=== PATIENT | male | born 1955 | race Caucasian/White ===

== ENCOUNTER 2017-07-02 20:27 | Inpatient (IN) | payer BC ==
[~2017-07-02] VITALS: Ht 177.8 cm; Wt 75.5 kg
[~2017-07-02 20:27] MED LIST: OXYC1TAB3 PO; SSDCR50 EXT
[2017-07-02 20:33] VITALS: Ht 177.8 cm; Wt 75.5 kg
[2017-07-02] MEDS ORDERED: SODIUM CHLORIDE 0.9% 1000ML 1,000 ML IV STA (20:40)
--- NOTE | 2017-07-02 20:41 | EMERGENCY ROOM VISIT NOTE ---
History Report prepared by Scribe: Shannen Rosario Under the Supervision of: Dr. Colin Rangel M.D. First contact with patient: 20:32 Chief Complaint: CHEST PAIN Stated Complaint: CHEST PAIN Nursing Triage Summary: patient c/o left sided chest pain that began 1730 described as a pressure. patient denies any cardiac hx . patient was given 324mg aspirin and two nitro sprays en route to hospital . patient states pain improved from 5 to a 1 after nitro. pain is intermittent. History of Present Illness The patient is a 61 year old male who presents to the Emergency Room with complaints of intermittent left sided chest pain that began at 1730 this evening. He reports he was walking to his refrigerator when the pain started. He rates his pain as a 10/10 initially and describes it as feeling like "pressure". Nitro and Aspirin given in the field have provided good relief and he currently rates his pain as a 2/10. The patient admits he experienced similar symptoms a few days ago when he was [place] the [place]. He thought he had pulled a muscle picking up items at the time and did not seek further care. The patient denies any prior cardiac history or history of PE's or DVT's. He denies any recent fevers, chills, cough or cold symptoms, shortness of breath, nausea, vomiting or diarrhea. The patient is a non-smoker but admits to using chewing tobacco. He drinks "3 to 4" beers "every night". 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 Source of History: patient Onset: 0 this evening Position: chest Symptom Intensity: 2/10 to 10/10 Quality: pressure Timing: intermittent Modifying Factors (Relieving): other (Nitro, Aspirin) Associated Symptoms: No fevers, No chills, No cough (cough or cold symptoms) , No SOB, No nausea, No diarrhea Review of Systems See HPI for pertinent positives and negatives. A total of ten systems were reviewed and were otherwise negative. Past Medical & Surgical Medical Problems: (1) Hypertension (2) LBBB (left bundle branch block) Social History Smoking Status: Never Smoker Smokeless Tobacco Use: No Alcohol Use: heavy Drug Use: none Marital Status: Housing Status: lives with family Occupation Status: employed Current/Historical Medications Scheduled Hydrochlorothiazide (Hctz), 25 MG PO DAILY Lisinopril (Zestril), 10 MG PO DAILY Multivitamin (Multivitamin), 1 TAB PO DAILY Allergies Coded Allergies: No Known Allergies (Unverified , NONE, 08/14/09) Physical Exam Vital Signs Date Time Temp Pulse Resp B/P (MAP) Pulse Ox O2 Delivery O2 Flow Rate FiO2 07/02/17 21:46 86 20 139/77 99 Room Air 07/02/17 20:42 82 07/02/17 20:33 36.7 80 22 139/77 95 Room Air 07/02/17 20:33 96 Room Air Physical Exam GENERAL: Awake, alert, well-appearing, in no distress, appears clinically dry. HENT: Normocephalic, atraumatic. Oropharynx unremarkable. Dry mucous membranes. EYES: Normal conjunctiva. Sclera non-icteric. NECK: Supple. No nuchal rigidity. FROM. No JVD. RESPIRATORY: Clear to auscultation. CARDIAC: Regular rate, normal rhythm. Extremities warm and well perfused. Pulses equal. ABDOMEN: Soft, non-distended. No tenderness to palpation. No rebound or guarding. No masses. RECTAL: Deferred. MUSCULOSKELETAL: Chest examination reveals no tenderness. The back is symmetrical on inspection without obvious abnormality. There is no CVA tenderness to palpation. No joint edema. Reports worst chest pain with movement but not with lying supine. LOWER EXTREMITIES: Calves are equal size bilaterally and non-tender. No edema. No discoloration. Equal pulses in the extremities. NEURO: Normal sensorium. No sensory or motor deficits noted. SKIN: No rash or jaundice noted. Medical Decision & Procedures ER Provider Diagnostic Interpretation: Radiology results as stated below per my review and radiologist interpretation: CHEST ONE VIEW PORTABLE CLINICAL HISTORY: sob dyspnea COMPARISON STUDY: No previous studies for comparison. FINDINGS: The bones soft tissues and hemidiaphragms are normal. The cardiomediastinal silhouette is normal. The lungs are clear. The pulmonary vasculature is normal. IMPRESSION: Negative chest. The above report was generated using voice recognition software. It may contain grammatical, syntax or spelling errors. Electronically signed by: Shimon Camilo M.D. 07/02/2017 8:55 PM Laboratory Results 07/02/17 20:02 Red Blood Count 4.43, Mean Corpuscular Volume 91.9, Mean Corpuscular Hemoglobin 32.1, Mean Corpuscular Hemoglobin Concent 34.9, Mean Platelet Volume 9.8, Neutrophils (%) (Auto) 58.3, Lymphocytes (%) (Auto) 29.2, Monocytes (%) (Auto) 8.6, Eosinophils (%) (Auto) 3.0, Basophils (%) (Auto) 0.5, Neutrophils # (Auto) 7.08, Lymphocytes # (Auto) 3.55, Monocytes # (Auto) 1.05, Eosinophils # (Auto) 0.37, Basophils # (Auto) 0.06 Test 07/02/17 20:02 White Blood Count 12.16 K/uL (4.8-10.8) Red Blood Count 4.43 M/uL (4.7-6.1) Hemoglobin 14.2 g/dL (14.0-18.0) Hematocrit 40.7 % (42-52) Mean Corpuscular Volume 91.9 fL (80-100) Mean Corpuscular Hemoglobin 32.1 pg (25-34) Mean Corpuscular Hemoglobin Concent 34.9 g/dl (32-36) Platelet Count 337 K/uL (130-400) Mean Platelet Volume 9.8 fL (7.4-10.4) Neutrophils (%) (Auto) 58.3 % Lymphocytes (%) (Auto) 29.2 % Monocytes (%) (Auto) 8.6 % Eosinophils (%) (Auto) 3.0 % Basophils (%) (Auto) 0.5 % Neutrophils # (Auto) 7.08 K/uL (1.4-6.5) Lymphocytes # (Auto) 3.55 K/uL (1.2-3.4) Monocytes # (Auto) 1.05 K/uL (0.11-0.59) Eosinophils # (Auto) 0.37 K/uL (0-0.5) Basophils # (Auto) 0.06 K/uL (0-0.2) RDW Standard Deviation 42.6 fL (36.4-46.3) RDW Coefficient of Variation 12.6 % (11.5-14.5) Immature Granulocyte % (Auto) 0.4 % Immature Granulocyte # (Auto) 0.05 K/uL (0.00-0.02) D-Dimer 370 ug/L FEU (0-500) Magnesium Level 2.4 mg/dl (1.8-2.4) Pro-B-Type Natriuretic Peptide 103 pg/ml (0-900) Laboratory results reviewed by me Medications Administered Medications (Trade) Dose Ordered Sig/Tram Route Start Time Stop Time Status Last Admin Dose Admin Sodium Chloride 1,000 ml @ 125 mls/hr Q8H STAT IV 07/02/17 20:40 07/03/17 00:36 DC 07/02/17 20:48 125 MLS/HR ECG Indication: chest pain Rate (beats per minute): 80 Rhythm: normal sinus Findings: LBBB, other (no Sgarbossa criteria present) ED Course 2038: The patient was evaluated in room B4. A complete history and physical exam was performed. 2039: NSS 1000 ml @ 125 mls/hr IV. 1: I reevaluated the patient. He is still feeling a twinge of pain, but no acute distress. I asked him again if the pain felt like pressure or tearing. He reinforced his pain feels like pressure and there was no radiation to his back. I discussed my recommendation that he remain in the hospital for further evaluation and management and he verbalized complete understanding and agreement. 5: I discussed the patients case with Dr. Jmaes, [facility] Hospitalist. The patient will be further evaluated. Medical Decision I reviewed the patient's past medical history, medications, and the nursing notes as described above. The differential diagnoses considered include ACS, dissection, PE, pneumonia, bronchitis and costochondritis. Patient is a 61-year-old gentleman with a past medical history of hypertension who presents emergency department with acute onset of chest pain that had been constant since 5 PM prior to arrival per history of present illness. Was given aspirin and nitroglycerin by EMS and arrives to the ED with mild residual symptoms to 10. Pain is worse with movement however now with lying supine. EKG shows a left bundle branch block but there are no other EKGs in the record. No Jeannette's criteria present, no spotick sign or OR depressions suggestive of pericarditis. Chest x-ray unremarkable and troponin negative in the setting of 3 hours of constant symptoms. Patient reports her pain is more like pressure and denies any tearing sensation or radiation to his back. The patient has equal pulses in all extremities and chest x-ray with mediastinum within the normal limits. Thus dissection unlikely. The patient is a well- healed low risk, with normal sinus rhythm and sats 98% with D-dimer negative as well making PE unlikely. Patient's episode last week was in the setting of physical activity and resolved on its own. Today the patient reports he was walking around the house when the symptoms occurred. Otherwise there's been no trending pattern of chest pain with exertion evolving into chest pain at rest that would paint a clear picture for unstable angina. However, considering the patient reports pressure and has an EKG with a left bundle branch block of unknown chronicity the patient is a heart score of 5, moderate risk, and thus we 'll admit the patient for further cardiac evaluation including likely provocative testing. The patient was admitted to medicine for further management. I discussed with hospital medicine who felt the patient's story could be consistent with unstable angina and they will begin heparin until further testing can be done. Medication Reconcilliation Current Medication List: was personally reviewed by me Blood Pressure Screening Patient's blood pressure: Elevated blood pressure Blood pressure disposition: Elevated BP felt to be situational Consults Time Called: [id number] Consulting Physician: Dr. James, [facility] Hospitalist Returned Call: [phone] I discussed the patients case with Dr. James, [facility] Hospitalist. The patient will be further evaluated. Impression Primary Impression: Substernal chest pain Scribe Attestation The scribe's documentation has been prepared under my direction and personally reviewed by me in its entirety. I confirm that the note above accurately reflects all work, treatment, procedures, and medical decision making performed by me. Departure Information Dispostion Being Evaluated By Hospitalist Referrals No Doctor, Assigned (PCP) Patient Instructions My [facility]
--- NOTE | 2017-07-02 20:56 | DIAGNOSTIC IMAGING REPORT ---
CHEST ONE VIEW PORTABLE CLINICAL HISTORY: sob dyspnea COMPARISON STUDY: No previous studies for comparison. FINDINGS: The bones soft tissues and hemidiaphragms are normal. The cardiomediastinal silhouette is normal. The lungs are clear. The pulmonary vasculature is normal. IMPRESSION: Negative chest. The above report was generated using voice recognition software. It may contain grammatical, syntax or spelling errors. Electronically signed by: Shimon Camilo M.D. 07/02/2017 8:55 PM Dictated Date/Time: 07/02/2017 8:55 PM
[2017-07-02] MEDS ORDERED: LISI-461 PO (20:58)
[2017-07-02] MEDS ORDERED: HYDR25TA4 PO (20:58)
[2017-07-02 21:04] LABS: BASO % 0.5 %; BASO ABS # 0.06 K/uL (0-0.2); COMPLETE YES; HEMATOCRIT 40.7 % (42-52); IG% 0.4 %; LYMPH % 29.2 %; LYMPH ABS # 3.55 K/uL (1.2-3.4); MEAN CELL VOLUME 91.9 fL (80-100); MEAN CORPUSCULAR HEMOGLOBIN 32.1 pg (25-34); MEAN CORPUSCULAR HGB CONC 34.9 g/dl (32-36); MEAN PLATELET VOLUME 9.8 fL (7.4-10.4); MONO % 8.6 %; NEUT % 58.3 %; PLATELET COUNT 337 K/uL (130-400); RED BLOOD COUNT 4.43 M/uL (4.7-6.1); WHITE BLOOD COUNT 12.16 K/uL (4.8-10.8)
[2017-07-02 21:11] LABS: BUN/CREATININE RATIO 12.5 (10-20); CALCIUM 9.1 mg/dl (8.5-10.1); CREATININE 1.1 mg/dl (0.60-1.40); MAGNESIUM 2.4 mg/dl (1.8-2.4); POTASSIUM 3.5 mmol/L (3.5-5.1)
[2017-07-02] MEDS ORDERED: MULT-506 PO (21:47)
--- NOTE | 2017-07-02 23:08 | History and Physical ---
History & Physical Date & Time of Service: Jul 02, 2017 at 23:08 Chief Complaint: Chest Pain Primary Care Physician: Leia Ovalles PA-C History of Present Illness Source: patient, family Salas is a 61 yo M with no previous cardiac hx, nonsmoker, who presents w/chest pain starting about 4.5 hours ago (5:30 pm on 07/02). He reports he did have twinges of chest pain over the weekend when he was at [place], but those went away on their own and he thought they were muscular. He reports this pain was like chest pressure on the left side of his chest and went down the arm. He denies any numbness or tingling or radiation into the jaw. He was given nitro and aspirin en route and felt better. His pain went from 10/10 to 2/10. It has returned somewhat and is now a 3/10. Past Medical/Surgical History Medical Problems: (1) Hypertension (2) LBBB (left bundle branch block) PSHx: None Family History Mother had a stroke 11 y ago. No other cardiac hx in family. Social History Smoking Status: Never Smoker Smokeless Tobacco Use: No Alcohol Use: socially Drug Use: none Marital Status: Occupational Status: employed Allergies Coded Allergies: No Known Allergies (Unverified , NONE, 08/14/09) Home Medications Scheduled Hydrochlorothiazide (Hctz), 25 MG PO DAILY Lisinopril (Zestril), 10 MG PO DAILY Multivitamin (Multivitamin), 1 TAB PO DAILY Review of Systems See HPI for pertinent positives & negatives. A total of 10 systems reviewed and were otherwise negative. Physical Exam Vital Signs Date Time Temp Pulse Resp B/P (MAP) Pulse Ox O2 Delivery O2 Flow Rate FiO2 07/02/17 21:46 86 20 139/77 99 Room Air 07/02/17 20:42 82 07/02/17 20:33 36.7 80 22 139/77 95 Room Air 07/02/17 20:33 96 Room Air General Appearance: WD/WN, + mild distress Head: normocephalic, atraumatic Eyes: normal inspection, PERRL ENT: hearing grossly normal Neck: supple, no JVD Respiratory/Chest: lungs clear, normal breath sounds, no respiratory distress Cardiovascular: regular rate, rhythm, no murmur, normal peripheral pulses Abdomen/GI: normal bowel sounds, non tender, soft Back: no CVA tenderness, no muscle spasm Extremities/Musculoskelatal: normal inspection, no pedal edema Neurologic/Psych: alert, normal mood/affect Skin: warm/dry, no rash Lymphatic: no adenopathy Diagnostics Laboratory Results Results Past 24 Hours Test 07/02/17 20:02 Range/Units White Blood Count 12.16 4.8-10.8 K/uL Red Blood Count 4.43 4.7-6.1 M/uL Hemoglobin 14.2 14.0-18.0 g/dL Hematocrit 40.7 42-52 % Mean Corpuscular Volume 91.9 80-100 fL Mean Corpuscular Hemoglobin 32.1 25-34 pg Mean Corpuscular Hemoglobin Concent 34.9 32-36 g/dl Platelet Count 337 130-400 K/uL Mean Platelet Volume 9.8 7.4-10.4 fL Neutrophils (%) (Auto) 58.3 % Lymphocytes (%) (Auto) 29.2 % Monocytes (%) (Auto) 8.6 % Eosinophils (%) (Auto) 3.0 % Basophils (%) (Auto) 0.5 % Neutrophils # (Auto) 7.08 1.4-6.5 K/uL Lymphocytes # (Auto) 3.55 1.2-3.4 K/uL Monocytes # (Auto) 1.05 0.11-0.59 K/uL Eosinophils # (Auto) 0.37 0-0.5 K/uL Basophils # (Auto) 0.06 0-0.2 K/uL RDW Standard Deviation 42.6 36.4-46.3 fL RDW Coefficient of Variation 12.6 11.5-14.5 % Immature Granulocyte % (Auto) 0.4 % Immature Granulocyte # (Auto) 0.05 0.00-0.02 K/uL D-Dimer 370 0-500 ug/L FEU Sodium Level 132 136-145 mmol/L Potassium Level 3.5 3.5-5.1 mmol/L Chloride Level 96 98-107 mmol/L Carbon Dioxide Level 27 21-32 mmol/L Anion Gap 9.0 3-11 mmol/L Blood Urea Nitrogen 14 7-18 mg/dl Creatinine 1.10 0.60-1.40 mg/dl Est Creatinine Clear Calc Drug Dose 74.7 ml/min Estimated GFR () 84.7 Estimated GFR (Non- 73.1 BUN/Creatinine Ratio 12.5 10-20 Random Glucose 90 70-99 mg/dl Calcium Level 9.1 8.5-10.1 mg/dl Magnesium Level 2.4 1.8-2.4 mg/dl Troponin I < 0.015 0-0.045 ng/ml Pro-B-Type Natriuretic Peptide 103 0-900 pg/ml Diagnostic Radiology CXR IMPRESSION: Negative chest. EKG LBBB - unclear if this is new or old. NSR. No prior EKG available Impression Assessment and Plan 61 yo M w/L sided chest pain that improved w/nitro - ddx ACS versus PE (risk factor being recent trip to [place]) Chest pain - Trend cardiac enzymes - Heparin drip started - Cardiology consulted - Continue aspirin in AM - EKG in AM - Hold HCTZ, and will replete K+ orally to goal of 4.0 - D-dimer negative, so will hold off on CT of chest for now as this seems to be more likely cardiac in origin Hyponatremia (mild) - Continue to monitor, repeat BMP in AM Screening for risk factors for CAD - Lipid panel - A1c Hypertension - Continue Lisinopril 10mg VTE: Heparin drip CODE STATUS: Full DISPO: Tele Attending Addendum: I have physically seen and examined this patient, have supervised the medical residents activities, and agree with the H&P as noted above with the following exceptions as noted. The patient is awake, well-developed and adequately nourished, alert and oriented 3, normocephalic and atraumatic, lying in bed and in no acute distress. HEENT--PERRL, EOMI, mucous membranes and oropharynx dry. Neck--supple, no JVD or bruits, thyroid normal, trachea midline, no adenopathy. Heart--normal S1 and S2, no extra beats, no murmurs, rubs or gallops. Lungs--clear bilaterally with good air movement, no respiratory distress, no accessory muscle use. Abdomen--normal bowel sounds and soft, nontender and nondistended, no hernias or masses, no organomegaly. Extremities--no cyanosis, clubbing or edema. There are good distal pulses b/l. Dermatologic--normal skin turgor, normal color, warm and dry, no abnormal lymph nodes, no rash. Neurologic--cranial nerves II through XII grossly intact, motor and sensory examination normal. Rheumatologic--normal range of motion, nontender, muscles and joints. Psychiatric--normal affect. Assessment and Plan: 1. Unstable angina--The patient will be admitted to telemetry for serial cardiac enzymes, cardiac rhythm monitoring and a 2-D echocardiogram with Dopplers. The patient's initial symptoms of chest discomfort occurred over the weekend while at [place]. He developed worsening symptoms today, to the point that he felt he needed to come to the emergency department for assessment. He has not had any change in his usual habits related to physical activities or oral intake, other than his recent trip to [place]. His d-dimer test was normal, but would still consider him at risk although it would be lesser, of a pulmonary embolism. Would therefore recommend bilateral lower extremity venous Dopplers and CT angiography of the chest if his symptoms are persistent and cardiac workup is negative. He will be treated in meantime indirectly by the use of IV heparin related cardiac concerns. We'll hold HCTZ 25 mg daily and lisinopril 10 mg by mouth daily. Start metoprolol tartrate 25 mg by mouth twice a day with first dose now. Place on Nitropaste 2-D anterior chest wall every 6 hours. Start heparin drip IV standard dose per protocol without bolus. Consult cardiology. Level of Care Telemetry Advanced Directives Existing Advance Directive: No Existing Living Will: No Existing Power of Environmental Laboratory Technician: No Resuscitation Status FULL RESUSCITATION VTE Prophylaxis VTE Risk Assessment Done? Y/N: Yes Risk Level: Moderate Given or contraindicated: Other Anticoagulation (Heparin IV standard dose, no bolus, per weight based protocol) Social Service Consult None Apply Resident Tracking Resident Involvement: Resident Care Provided Care Provided: Adult Hospital Medicine
[2017-07-02] MEDS ORDERED: POLYETHYLENE (MIRALAX) 17 GM PACK PO PRN (23:15)
[2017-07-02] MEDS ORDERED: MAGNESIUM HYDROXIDE SUSP 30 ML UDC PO PRN (23:15)
[2017-07-02] MEDS ORDERED: NITROGLYCERIN 0.4 MG SL PER TAB CHARGE SL PRN (23:15)
[2017-07-02] MEDS ORDERED: ACETAMINOPHEN 325 MG TAB PO PRN (23:15)
[2017-07-02] MEDS ORDERED: ALUMINUM/MAGNESIUM/SIMETH (MAALOX MAX) 30 ML UDC PO PRN (23:15)
[2017-07-02] MEDS ORDERED: MoRPHine SULFATE 2 MG/ML CARP IV PRN (23:15)
[2017-07-02] MEDS ORDERED: ONDANSETRON INJ 2 MG/ML 2 ML VIAL IV PRN (23:15)
[2017-07-02] MEDS ORDERED: POTASSIUM CHLORIDE 10 MEQ TABCR PO STA (23:36)
[2017-07-03] VITALS (8 sets, daily range): BP systolic 108–138; BP diastolic 64–86; PULSE 66–92; TEMP 36.6–37.1; O2SAT 96–100
[2017-07-03] MEDS ORDERED: METOPROLOL TARTRATE 25 MG TAB PO STA (00:11)
[2017-07-03] MEDS ORDERED: NITROGLYCERIN OINT 2% 1GM PACKET EXT STA (00:39)
[2017-07-03] MEDS ORDERED: HEPARIN 25,000 UNIT/500ML D5W 500 ML IV PRN (01:00)
[2017-07-03 06:04] LABS: BLOOD UREA NITROGEN 11 mg/dl (7-18); BUN/CREATININE RATIO 9.5 (10-20); CALCIUM 8.5 mg/dl (8.5-10.1); CARBON DIOXIDE 28 mmol/L (21-32); CHLORIDE 103 mmol/L (98-107); GLUCOSE 110 mg/dl (70-99); POTASSIUM 4.4 mmol/L (3.5-5.1); SODIUM 137 mmol/L (136-145)
[2017-07-03] MEDS: NITROGLYCERIN OINT 2% 1GM PACKET EXT SCH ×4 (06:14→23:22)
[2017-07-03 06:20] LABS: CHOLESTEROL 134 mg/dl (0-200); CHOLESTEROL/HDL RATIO 2.9; CKMB/CK RATIO 1.2 (0-3.0); HDL CHOLESTEROL 47 mg/dl; LDL CHOLESTEROL CALCULATED 66 mg/dl; TRIGLYCERIDES 105 mg/dl (0-150); VERY LOW DENSITY LIPOPROT CALC 21 mg/dl
[2017-07-03 07:36] LABS: PARTIAL THROMBOPLASTIN RATIO 1.8
[2017-07-03] MEDS: ASPIRIN 81 MG ECTAB PO SCH (08:45)
[2017-07-03] MEDS: METOPROLOL TARTRATE 25 MG TAB PO SCH ×2 (08:45→20:35)
[2017-07-03] MEDS: MULTIVITAMIN TAB PO SCH (08:45)
[2017-07-03] MEDS: POTASSIUM CHLORIDE 20 MEQ TABCR PO SCH ×2 (08:45→20:35)
[2017-07-03] MEDS ORDERED: HYDROCHLOROTHIAZIDE 25 MG TAB PO SCH (09:00)
[2017-07-03] MEDS ORDERED: LISINOPRIL 10 MG TAB PO SCH (09:00)
[2017-07-03] MEDS ORDERED: OPTIRAY 320 IV PRN (10:45)
--- NOTE | 2017-07-03 11:04 | Cardiology Consultation ---
Cardiology Consultation Date of Consultation: Jul 03, 2017. Requesting Physician: Dr. Domingo Reason for Consultation: Chest discomfort Pt evaluation today including: conversation w/ patient, conversation w/ family (his is present at the bedside), physical exam, lab review, review of studies, review of inpatient medication list, conversation w/ attending History of Present Illness This is a very pleasant 61-year-old gentleman who has hypertension but no other known cardiovascular history, he has never had any cardiovascular tests including electrocardiograms. His present history starts on 06/27/2017 [place] thought he pulled a muscle and the discomfort lasted for about 2 hours and resolved. He was not short of breath at the time. [place], and was doing well until 07/02/2017 when he developed a similar discomfort at around 5 in the afternoon. This time it was associated with shortness of breath. He has no orthopnea or PND. He notes no peripheral edema. Shortly thereafter he came into the emergency room, the discomfort has continued although it may wax and wane somewhat. He describes the discomfort as being a pulling sensation in his left precordial area and he can identify the location quite accurately. He does not recall trauma. The discomfort is clearly worse when I had him breathe to listen to his lungs and there is a definite respiratory component. It may be a little bit better when he is standing up or leaning forward. He does note that he has had tick bites but has no symptoms of Lyme disease. He denies lightheadedness, dizziness or palpitations. On presentation to the emergency room electrocardiography demonstrated a left bundle branch block, the duration of which is unknown. Initial enzymes were negative, he had a leukocytosis. Subsequent evaluation shows 2 sets of negative cardiac enzymes, no change in his left bundle branch block pattern. Today he feels about the same as he did on presentation yesterday. Past Medical/Surgical History (1) Hypertension Social History Smoking Status: Never Smoker History of Alcohol Use: Yes (2 beers/day) Review of Systems Constitutional: No fever, No weight loss, No weakness Respiratory: + see HPI, + dyspnea on exertion, No cough, No wheezing, No shortness of breath Cardiac: + see HPI, + chest pain, No orthopnea, No PND, No edema, No palpitations Abdomen: No pain, No nausea, No vomiting, No diarrhea, No GI bleeding Male : No urinary frequency, No nocturia more than once/night, No slowing stream, No sexual dysfunction Neurologic: No paralysis, No weakness, No numbness/tingling, No balance problems Heme: No abnormal bleeding/bruising, No clotting problems Endo: No fatigue Skin: No problem reported All Other Systems: Reviewed and Negative Allergies Coded Allergies: No Known Allergies (Unverified , NONE, 08/14/09) Medications Current Inpatient Medications Medications (Trade) Dose Ordered Sig/Tram Route Start Time Stop Time Status Last Admin Dose Admin Acetaminophen (Tylenol Tab) 650 mg Q4H PRN PO 07/02/17 23:15 08/01/17 23:14 Al Hydrox/Mg Hydrox/Simethicone (Maalox Max Susp) 15 ml Q4H PRN PO 07/02/17 23:15 08/01/17 23:14 Magnesium Hydroxide (Milk Of Magnesia Susp) 30 ml Q12H PRN PO 07/02/17 23:15 08/01/17 23:14 Ondansetron HCl (Zofran Inj) 4 mg Q6H PRN IV 07/02/17 23:15 08/01/17 23:14 Nitroglycerin (Nitrostat Tab) 0.4 mg UD PRN SL 07/02/17 23:15 08/01/17 23:14 Nitroglycerin (Nitroglycerin 2% Oint) 1 inch Q6H EXT 07/03/17 06:00 08/02/17 05:59 07/03/17 06:14 1 INCH Morphine Sulfate (MoRPHine SULFATE INJ) 2 mg Q30M PRN IV 07/02/17 23:15 07/16/17 23:14 Aspirin (Ecotrin Tab) 81 mg QAM PO 07/03/17 09:00 08/02/17 08:59 Polyethylene (Miralax Powder Packet) 17 gm DAILY PRN PO 07/02/17 23:15 08/01/17 23:14 Multivitamins (Multivitamin Tab) 1 tab DAILY PO 07/03/17 09:00 08/02/17 08:59 07/03/17 08:45 1 TAB Potassium Chloride (Klor-Con Tab) 40 meq BID PO 07/03/17 09:00 08/02/17 08:59 07/03/17 08:45 40 MEQ Metoprolol Tartrate (Lopressor Tab) 25 mg BID PO 07/03/17 09:00 08/02/17 08:59 07/03/17 08:45 25 MG Heparin Sodium/ Dextrose 500 ml @ 28 mls/hr [id number] PRN IV 07/03/17 01:00 08/02/17 00:59 07/03/17 01:17 28 MLS/HR Ioversol (Optiray 320) 100 ml UD PRN IV 07/03/17 10:45 07/07/17 10:44 Physical Exam Vital Signs Past 12 Hours Date Time Temp Pulse Resp B/P (MAP) Pulse Ox O2 Delivery O2 Flow Rate FiO2 07/03/17 08:00 Room Air 07/03/17 07:38 37.1 72 18 125/74 (91) 97 07/03/17 06:32 Room Air 07/03/17 04:18 36.8 66 18 108/64 (79) 97 Room Air 07/03/17 03:17 99 Room Air 07/03/17 00:48 36.7 79 20 138/78 (98) 96 Room Air 07/03/17 00:21 Room Air 07/02/17 23:33 75 22 139/77 98 Constitutional: General Apperance: heathly-appearing Level of Distress: NAD Psychiatric: Mental Status: active & alert Head: normocephalic Eyes: EOM: EOMI ENMT: normal ENT inspection, hearing grossly normal Neck: supple, no masses Lungs: Respiratory effort: no dyspnea, good air movement Auscultation: breath sounds normal, no wheezing Cardiovascular: Heart Auscultation: RRR, no murmurs, no rubs, no gallops Peripheral Pulses: Bruits: none appreciated Abdomen: Bowel Sounds: normal Inspection & Palpation: soft, no tenderness, guarding & rebound, no masses Musculoskeletal: normal strength (5/5 throughout) Extremities: no edema Neurologic: Cranial Nerves: grossly intact Sensation: grossly intact Data Laboratory Results: Last 24 Hours Test 07/02/17 20:02 07/03/17 05:20 07/03/17 07:04 07/03/17 10:45 White Blood Count 12.16 K/uL Red Blood Count 4.43 M/uL Hemoglobin 14.2 g/dL Hematocrit 40.7 % Mean Corpuscular Volume 91.9 fL Mean Corpuscular Hemoglobin 32.1 pg Mean Corpuscular Hemoglobin Concent 34.9 g/dl Platelet Count 337 K/uL Mean Platelet Volume 9.8 fL Neutrophils (%) (Auto) 58.3 % Lymphocytes (%) (Auto) 29.2 % Monocytes (%) (Auto) 8.6 % Eosinophils (%) (Auto) 3.0 % Basophils (%) (Auto) 0.5 % Neutrophils # (Auto) 7.08 K/uL Lymphocytes # (Auto) 3.55 K/uL Monocytes # (Auto) 1.05 K/uL Eosinophils # (Auto) 0.37 K/uL Basophils # (Auto) 0.06 K/uL RDW Standard Deviation 42.6 fL RDW Coefficient of Variation 12.6 % Immature Granulocyte % (Auto) 0.4 % Immature Granulocyte # (Auto) 0.05 K/uL D-Dimer 370 ug/L FEU Sodium Level 132 mmol/L 137 mmol/L Potassium Level 3.5 mmol/L 4.4 mmol/L Chloride Level 96 mmol/L 103 mmol/L Carbon Dioxide Level 27 mmol/L 28 mmol/L Anion Gap 9.0 mmol/L 6.0 mmol/L Blood Urea Nitrogen 14 mg/dl 11 mg/dl Creatinine 1.10 mg/dl 1.10 mg/dl Est Creatinine Clear Calc Drug Dose 74.7 ml/min 74.7 ml/min Estimated GFR () 84.7 84.7 Estimated GFR (Non- 73.1 73.1 BUN/Creatinine Ratio 12.5 9.5 Random Glucose 90 mg/dl 110 mg/dl Calcium Level 9.1 mg/dl 8.5 mg/dl Magnesium Level 2.4 mg/dl Troponin I < 0.015 ng/ml < 0.015 ng/ml Pro-B-Type Natriuretic Peptide 103 pg/ml Total Creatine Kinase 145 U/L Creatine Kinase MB 1.8 ng/ml Creatine Kinase MB Ratio 1.2 Triglycerides Level 105 mg/dl Cholesterol Level 134 mg/dl HDL Cholesterol 47 mg/dl LDL Cholesterol, Calculated 66 mg/dl VLDL Cholesterol, Calculated 21 mg/dl Cholesterol/HDL Ratio 2.9 Activated Partial Thromboplast Time 47.1 SECONDS Partial Thromboplastin Ratio 1.8 Imaging: Chest x-ray is unremarkable with a normal size cardiac silhouette and no congestive heart failure EKG: On admission and subsequently sinus rhythm with left bundle branch block Telemetry reviewed: Sinus rhythm, no significant abnormality Assessment & Plan #1. Chest discomfort his chest discomfort is atypical for myocardial ischemia, the duration of his current episode would be unusual without objective evidence of injury with enzyme elevation. Additionally the character is more compatible with chest wall or pericardial pain. I am also concerned that this could be due to pulmonary embolism, he was traveling last week and although he has no leg evidence of DVT I think we should exclude a pulmonary embolism and I will schedule that. I am going to get an ESR as a nonspecific marker of pericarditis (we can't interpret his electrocardiogram for pericarditis). I would like to get an echocardiogram to look for wall motion abnormalities or an effusion. If we do not have a diagnosis after these preliminary studies we need to consider stress testing, but that we'll have to be a nuclear stress test and I would do it using a treadmill. #2. Left bundle-branch block: He has a left bundle branch block of unknown duration. To his knowledge she has not had an electrocardiogram so it could be long-standing. I am concerned that it could represent Lyme disease however and I will send titers. He does not have any symptoms to suggest higher degree AV block and if his echocardiogram is unremarkable and his Lyme disease is negative I don't know of any specific treatment for it. Thank you for allowing me to participate in his care.
[2017-07-03 11:24] LABS: CKMB/CK RATIO 0.9 (0-3.0)
--- NOTE | 2017-07-03 11:34 | DIAGNOSTIC IMAGING REPORT ---
CT ANGIOGRAM OF THE CHEST CLINICAL HISTORY: Substernal chest pain COMPARISON STUDY: Chest x-ray dated 07/02/2017 TECHNIQUE: Following the IV administration of 93 mL of Optiray-320, CT angiogram of the thorax was performed from the thoracic inlet to the lung bases utilizing the pulmonary embolus protocol. Images are reviewed in the axial, sagittal, and coronal planes. IV contrast was administered without complication. MIP imaging was performed. A dose lowering technique was utilized adhering to the principles of ALARA. CT DOSE: 420.26 mGycm FINDINGS: No pathologically enlarged axillary mediastinal or hilar lymph nodes were visualized. There was no evidence of thoracic aortic dilatation. There were no pulmonary artery filling defects to indicate acute pulmonary embolism. There is a small left pleural effusion. There are minor left basilar atelectatic changes. IMPRESSION: 1. No evidence of acute pulmonary embolism 2. Very small left pleural effusion with left basilar atelectasis 3. No evidence of pathologic adenopathy Electronically signed by: Toño Garcia M.D. 07/03/2017 11:33 AM Dictated Date/Time: 07/03/2017 11:28 AM
--- NOTE | 2017-07-03 11:45 | Cardiology Follow-Up ---
Subjective Subjective Date of Service: Jul 03, 2017. Pt evaluation today including: conversation w/ patient, physical exam, chart review, lab review, review of studies Additional Details: Today patient described chest discomfort. He reports marked improvement from yesterday. -Pt described pain as a 2/10, heaviness and pressure. He was able to point to the location, slightly left of the sternum. He said that yesterday the pain was 10/10. -Pt describes pain with inspiration and cough and with change of position. Pt seems to have more pain when leaning forward or backwards. -He denies N/V/D, abdominal pain or recent viral illness. -Pt reports recent travel to the beach by [place]. During vacation experienced similar pain. Both incidences involved activity, but yesterday was not relieved by rest. -In the ED, ECG demonstrated presumably new LBBB, troponin negative x2 and a normal CXR. Problem List Medical Problems: (1) Substernal chest pain Status: Acute Review of Systems Constitutional: No fever, No chills, No weakness Respiratory: + see HPI, + dyspnea on exertion, No cough, No wheezing, No shortness of breath Cardiac: + see HPI, + chest pain, No edema, No palpitations Abdomen: No pain, No nausea, No vomiting, No diarrhea Male : No urinary frequency Neurologic: No weakness, No numbness/tingling Endo: No fatigue Objective Vital Signs Last Vital Signs Documentation Date Time Temp Pulse Resp B/P (MAP) Pulse Ox O2 Delivery O2 Flow Rate FiO2 07/03/17 08:00 Room Air 07/03/17 07:38 37.1 72 18 125/74 (91) 97 Physical Exam: General Appearance: WD/WN, no apparent distress Neck: supple, no adenopathy, thyroid normal, no JVD Respiratory/Chest: chest non-tender, lungs clear, normal breath sounds, no respiratory distress, no accessory muscle use Cardiovascular: regular rate, rhythm, no edema, no gallop, no JVD, no murmur Abdomen: non tender Extremities: no pedal edema, no calf tenderness Neurologic/Psychiatric: alert, normal mood/affect, oriented x 3 Skin: normal color, warm/dry, no rash Assessment and Plan Problems Acute Chest Pain Dyspnea LBBB Plan based on differential: cardiac causes, infectious causes and pulmonary Cardiac Causes 1. Reviewed with patient ECG finding of LBBB. Discussed with him that this conduction abnormality makes assessment of cardiac function via exercise stress testing and exercise ECHO. In the setting of normal troponin and with the positional nature of the pain, its unlikely that the patient's pain is related to ACS. ECHO to be performed today. Will consider nuclear stress test for tomorrow. Infectious Cause 2. LBBB and positional pain lends reason to r/o Lyme Disease and Pericarditis. Ordered, ESR and Lyme antibodies Pulmonary 3. SOB, Ordered CT to r/o PE. Pt's CXR was normal, no infiltrates or opacities noted. Going forward tomorrow: Pending results of test above, will consider Nuclear stress test to evaluate perfusion. RESIDENT NOTE--Education purposes only. Please refer to Veterinary Assistant Consult note, Dr. Rosado
[2017-07-03 12:51] LABS: LYME DISEASE AB IGG NEG (NEG); LYME DISEASE AB IGM NEG (NEG)
[2017-07-03] MEDS ORDERED: PERFLUTREN LIPID MICROSPHERE (DEFINITY) IV ONE (13:45)
--- NOTE | 2017-07-03 13:49 | Family Medicine Progress Note ---
Progress Note Date of Service Jul 03, 2017. Subjective Pt evaluation today including: conversation w/ patient, physical exam, chart review, lab review, conversation w/ senior sustainability consultant Pain: mild chest discomfort Voiding: no voiding problems, no incontinence History reviewed with patient - Had 1 episode of chest pain last week on holidays after doing heavy lifting ; mild tightness in cental chest that resolved after 4 hours - Yesterday was carrying steaks to barbeque yesterday when chest pain came back but more severe. Called EMS as he was concerned for having heart attack - Denies relief with nitro in ambulance but was told by EMS that Nitro "improved my vitals" - Pain currently much better than when he first came in; rates it a 3/10 central pressure pain; no radiation to back, jaw or arms - Prior to past week, no episodes of such chest pain; has HTN but no HLD or DM; fleeting smoker as an adolescent; no family history No acute events overnight Patient is currently NPO; no voiding issues Additional Comments: A 10 point review of systems was negative unless stated above. Medications Current Inpatient Medications Medications (Trade) Dose Ordered Sig/Tram Route Start Time Stop Time Status Last Admin Dose Admin Acetaminophen (Tylenol Tab) 650 mg Q4H PRN PO 07/02/17 23:15 08/01/17 23:14 Al Hydrox/Mg Hydrox/Simethicone (Maalox Max Susp) 15 ml Q4H PRN PO 07/02/17 23:15 08/01/17 23:14 Magnesium Hydroxide (Milk Of Magnesia Susp) 30 ml Q12H PRN PO 07/02/17 23:15 08/01/17 23:14 Ondansetron HCl (Zofran Inj) 4 mg Q6H PRN IV 07/02/17 23:15 08/01/17 23:14 Nitroglycerin (Nitrostat Tab) 0.4 mg UD PRN SL 07/02/17 23:15 08/01/17 23:14 Nitroglycerin (Nitroglycerin 2% Oint) 1 inch Q6H EXT 07/03/17 06:00 08/02/17 05:59 07/03/17 12:12 1 INCH Morphine Sulfate (MoRPHine SULFATE INJ) 2 mg Q30M PRN IV 07/02/17 23:15 07/16/17 23:14 Aspirin (Ecotrin Tab) 81 mg QAM PO 07/03/17 09:00 08/02/17 08:59 Polyethylene (Miralax Powder Packet) 17 gm DAILY PRN PO 07/02/17 23:15 08/01/17 23:14 Multivitamins (Multivitamin Tab) 1 tab DAILY PO 07/03/17 09:00 08/02/17 08:59 07/03/17 08:45 1 TAB Potassium Chloride (Klor-Con Tab) 40 meq BID PO 07/03/17 09:00 08/02/17 08:59 07/03/17 08:45 40 MEQ Metoprolol Tartrate (Lopressor Tab) 25 mg BID PO 07/03/17 09:00 08/02/17 08:59 07/03/17 08:45 25 MG Heparin Sodium/ Dextrose 500 ml @ 28 mls/hr [id number] PRN IV 07/03/17 01:00 08/02/17 00:59 07/03/17 01:17 28 MLS/HR Ioversol (Optiray 320) 100 ml UD PRN IV 07/03/17 10:45 07/07/17 10:44 Objective Vital Signs Date Time Temp Pulse Resp B/P (MAP) Pulse Ox O2 Delivery O2 Flow Rate FiO2 07/03/17 12:00 Room Air 07/03/17 11:45 36.8 68 18 130/81 (97) 100 07/03/17 08:00 Room Air 07/03/17 07:38 37.1 72 18 125/74 (91) 97 07/03/17 06:32 Room Air 07/03/17 04:18 36.8 66 18 108/64 (79) 97 Room Air 07/03/17 03:17 99 Room Air 07/03/17 00:48 36.7 79 20 138/78 (98) 96 Room Air 07/03/17 00:21 Room Air 07/02/17 23:33 75 22 139/77 98 07/02/17 21:46 86 20 139/77 99 Room Air 07/02/17 20:42 82 07/02/17 20:33 36.7 80 22 139/77 95 Room Air 07/02/17 20:33 96 Room Air Physical Exam General Appearance: WD/WN, no apparent distress Eyes: normal inspection, EOMI ENT: hearing grossly normal, pharynx normal Neck: supple, no adenopathy, no JVD Respiratory/Chest: lungs clear, no respiratory distress Cardiovascular: regular rate, rhythm, no gallop, no murmur Abdomen: normal bowel sounds, non tender, soft Extremities: non-tender, no pedal edema Neurologic/Psychiatric: alert, normal mood/affect, oriented x 3 Skin: normal color, warm/dry, no rash Lymphatic: no adenopathy Laboratory Results Last 24 Hours Test 07/02/17 20:02 07/03/17 05:20 07/03/17 07:04 07/03/17 10:45 White Blood Count 12.16 K/uL Red Blood Count 4.43 M/uL Hemoglobin 14.2 g/dL Hematocrit 40.7 % Mean Corpuscular Volume 91.9 fL Mean Corpuscular Hemoglobin 32.1 pg Mean Corpuscular Hemoglobin Concent 34.9 g/dl Platelet Count 337 K/uL Mean Platelet Volume 9.8 fL Neutrophils (%) (Auto) 58.3 % Lymphocytes (%) (Auto) 29.2 % Monocytes (%) (Auto) 8.6 % Eosinophils (%) (Auto) 3.0 % Basophils (%) (Auto) 0.5 % Neutrophils # (Auto) 7.08 K/uL Lymphocytes # (Auto) 3.55 K/uL Monocytes # (Auto) 1.05 K/uL Eosinophils # (Auto) 0.37 K/uL Basophils # (Auto) 0.06 K/uL RDW Standard Deviation 42.6 fL RDW Coefficient of Variation 12.6 % Immature Granulocyte % (Auto) 0.4 % Immature Granulocyte # (Auto) 0.05 K/uL D-Dimer 370 ug/L FEU Sodium Level 132 mmol/L 137 mmol/L Potassium Level 3.5 mmol/L 4.4 mmol/L Chloride Level 96 mmol/L 103 mmol/L Carbon Dioxide Level 27 mmol/L 28 mmol/L Anion Gap 9.0 mmol/L 6.0 mmol/L Blood Urea Nitrogen 14 mg/dl 11 mg/dl Creatinine 1.10 mg/dl 1.10 mg/dl Est Creatinine Clear Calc Drug Dose 74.7 ml/min 74.7 ml/min Estimated GFR () 84.7 84.7 Estimated GFR (Non- 73.1 73.1 BUN/Creatinine Ratio 12.5 9.5 Random Glucose 90 mg/dl 110 mg/dl Calcium Level 9.1 mg/dl 8.5 mg/dl Magnesium Level 2.4 mg/dl Troponin I < 0.015 ng/ml < 0.015 ng/ml < 0.015 ng/ml Pro-B-Type Natriuretic Peptide 103 pg/ml Total Creatine Kinase 145 U/L 129 U/L Creatine Kinase MB 1.8 ng/ml 1.1 ng/ml Creatine Kinase MB Ratio 1.2 0.9 Triglycerides Level 105 mg/dl Cholesterol Level 134 mg/dl HDL Cholesterol 47 mg/dl LDL Cholesterol, Calculated 66 mg/dl VLDL Cholesterol, Calculated 21 mg/dl Cholesterol/HDL Ratio 2.9 Activated Partial Thromboplast Time 47.1 SECONDS Partial Thromboplastin Ratio 1.8 Erythrocyte Sedimentation Rate 9 mm/hr Lyme Disease IgG Antibody NEG Lyme Disease IgM Antibody NEG Assessment and Plan 61 year old male presenting for chest pain rule-out. The patient's age and gender certainly increase risk of underlying CAD, though I would rate his symptoms as atypical chest pain. EKG did show left bundle branch block and given that we have no previous EKGs on records, this is presumed to be a new finding until proven otherwise. Our plan for him is as follows: Chest Pain - Non-cardiac etiologies evaluated CT chest negative for PE CXR negative for acute process including pneumothorax, pneumonia or rib fracture - Cardiac enzymes negative x 3 - EKG with presumed new left bundle branch block - Patient given 324 ASA en route to hospital; currently on Heparin infusion - Seen by cardiology recommendations appreciated Echocardiogram to evaluate for RWMA Lyme titres for evaluation of conduction block: Lyme screen negative If evaluations above negative, plan to proceed with nuclear stress testing - Nitroglycerine for chest pain - EKG in the AM Hypertension - Continue Lisinopril - Continue HCTZ DVT Prophylaxis - On heparin infusion - BEKAH - SCD Code Status - Level I Full Shaista Disposition - Telemetry Resident Physician Supervision Note: I interviewed and examined the patient. Discussed with Dr. Barr and agree with findings and plan as documented in the note. Any exceptions or clarifications are listed here: None Documented By: Milan Thomas chest pain - as above. worse w a deep breath worse w certain movements vitals noted nad breathing unlabored ost/msk - L sided lower ribs (~8-10) very tender decreased ROM stuck in exhalation - balanced ligamentous tension and serratus anterior muscle energy - improved some w ROM - pt tolerated well chest pain- due to risks w/u as above//per cardiology - however, if w/u negative strongly suspect muscular/rib rib somatic dysfunction - OMT as above
--- NOTE | 2017-07-03 14:56 | ECHOCARDIOGRAM REPORT ---
*NOTICE TO RECEIVING LIBERTARIAN AGENCY This information is strictly Confidential and protected under [place] law. [place] law prohibits you from making any further disclosure of this information unless further disclosure is expressly permitted by the written consent of the person to whom it pertains or is authorized by law. A general authorization for the release of medical or other information is not sufficient for this purpose. Hospital accepts no responsibility if the information is made available to any other person, INCLUDING THE PATIENT. Interpretation Summary * Name: ANTONY SAMUEL Study Date: 07/03/2017 12:52 PM BP: 130/81 mmHg * Patient Location: [facility] HR: 68 * : 1955 (M/d/yyyy) Gender: Male Height: 70 in * Age: 61 yrs Ethnicity: CA Weight: 170 lb * Ordering Physician: Marisa Domingo * Referring Physician: GÓMEZ * Performed By: Kimberly Pope RDCS * * Reason For Study: UNSTABLE ANGINA * BSA: 1.9 m2 * -- Conclusions -- * Left ventricular systolic function is normal. * Diastolic dysfunction, Grade II (pseudonormalization pattern). * Right ventricular systolic pressure is normal. Procedure Details * A contrast injection of Definity was performed to improve assessment of LV function. * Contrast was injected into an intravenous site in the left arm. * One vial of Definity ultrasound contrast was diluted in normal saline to a total volume of 10 ml. A total of '2' ml of solution was administered during imaging. * Lot # [id number] of Definity utilized for procedure. * Expiration date SEP 12. * The attending nurse who injected the contrast agent was KIRBY WATKINS RN. Left Ventricle * The left ventricle is normal in size. * There is normal left ventricular wall thickness. * Ejection Fraction = 60-65%. * Left ventricular systolic function is normal. * Diastolic dysfunction, Grade II (pseudonormalization pattern). * The left ventricular wall motion is normal. Right Ventricle * The right ventricle is normal in size and function. Atria * The left atrial size is normal. * Right atrial size is normal. Mitral Valve * The mitral valve anatomy is normal. * Significant mitral regurgitation is absent. Tricuspid Valve * The tricuspid valve is not well visualized, but is grossly normal. * There is trace tricuspid regurgitation. * Right ventricular systolic pressure is normal. Aortic Valve * The aortic valve is normal in structure and function. * No hemodynamically significant valvular aortic stenosis. * There is no significant aortic regurgitation. Great Vessels * The aortic root is normal size. Pericardium/Pleural * There is no pericardial effusion. MMode 2D Measurements and Calculations IVSd 1.1 cm IVSs 1.4 cm LVIDd 4.2 cm LVIDs 2.7 cm LVPWd 0.76 cm LVPWs 0.98 cm IVS/LVPW 1.4 FS 35.0 % EDV(Teich) 78.2 ml ESV(Teich) 27.6 ml EF(Teich) 64.6 % EDV(cubed) 73.6 ml ESV(cubed) 20.2 ml EF(cubed) 72.5 % % IVS thick 26.3 % % LVPW thick 27.5 % LV mass(C)d 122.9 grams LV mass(C)dI 63.1 grams/m\S\2 LV mass(C)s 92.4 grams LV mass(C)sI 47.4 grams/m\S\2 SV(Teich) 50.5 ml SI(Teich) 25.9 ml/m\S\2 SV(cubed) 53.3 ml SI(cubed) 27.4 ml/m\S\2 Ao root diam 2.7 cm Ao root area 5.6 cm\S\2 LA dimension 3.5 cm LA/Ao 1.3 LVAd ap4 31.0 cm\S\2 LVLd ap4 9.1 cm EDV(MOD-sp4) 85.7 ml LVAs ap4 16.8 cm\S\2 LVLs ap4 6.8 cm ESV(MOD-sp4) 34.6 ml EF(MOD-sp4) 59.6 % LVAd ap2 36.0 cm\S\2 LVLd ap2 8.8 cm EDV(MOD-sp2) 121.0 ml LVAs ap2 18.8 cm\S\2 LVLs ap2 7.2 cm ESV(MOD-sp2) 42.1 ml EF(MOD-sp2) 65.2 % SV(MOD-sp4) 51.1 ml SI(MOD-sp4) 26.2 ml/m\S\2 SV(MOD-sp2) 78.9 ml SI(MOD-sp2) 40.5 ml/m\S\2 Doppler Measurements and Calculations MV E max silvano 75.2 cm/sec MV A max silvano 67.9 cm/sec MV E/A 1.1 MV dec time 0.26 sec Ao V2 max 145.2 cm/sec Ao max PG 8.4 mmHg Ao max PG (full) 4.4 mmHg LV V1 max PG 4.0 mmHg LV V1 max 99.9 cm/sec TR max silvano 234.8 cm/sec
[2017-07-03] MEDS: DICLOFENAC SOD 1% GEL 100 GM TUBE EXT SCH ×2 (16:54→20:34)
[2017-07-03 17:57] LABS: CKMB/CK RATIO 0.7 (0-3.0)
--- NOTE | 2017-07-03 18:24 | Medical Student: [facility] ---
Med Student Progress Note Date of Service Jul 03, 2017. Subjective Pt evaluation today including: conversation w/ patient, chart review, lab review, review of studies Voiding: no voiding problems Patient was examined sitting up in bed this morning. Still has feeling of left- sided chest pressure which becomes sharp pain with deep breaths. Pain is rated at 2/10 at baseline up to 9/10 with deep breaths. The pain does not radiate up his neck or down his arm. Denies lightheadedness, dizziness, nausea, palpitations, shortness of breath, abdominal pain, numbness/tingling, calf pain. No other complaints at this time. Review of Systems Constitutional: No fever, No chills, No sweats Eyes: No worsening of vision, No diplopia ENT: No sore throat, No trouble swallowing Respiratory: No cough, No wheezing, No shortness of breath Cardiac: + chest pain, No orthopnea, No edema, No palpitations Abdomen: No pain, No nausea, No vomiting, No diarrhea, No constipation Musculoskeletal: No joint pain, No muscle pain, No calf pain Male : No dysuria, No incontinence Neurologic: No weakness, No numbness/tingling Heme: No abnormal bleeding/bruising, No night sweats Objective Vital Signs Date Time Temp Pulse Resp B/P (MAP) Pulse Ox O2 Delivery O2 Flow Rate FiO2 07/03/17 15:54 36.6 75 18 119/74 (89) 97 Room Air 07/03/17 12:00 Room Air 07/03/17 11:45 36.8 68 18 130/81 (97) 100 07/03/17 08:00 Room Air 07/03/17 07:38 37.1 72 18 125/74 (91) 97 07/03/17 06:32 Room Air 07/03/17 04:18 36.8 66 18 108/64 (79) 97 Room Air 07/03/17 03:17 99 Room Air 07/03/17 00:48 36.7 79 20 138/78 (98) 96 Room Air 07/03/17 00:21 Room Air 07/02/17 23:33 75 22 139/77 98 07/02/17 21:46 86 20 139/77 99 Room Air 07/02/17 20:42 82 07/02/17 20:33 36.7 80 22 139/77 95 Room Air 07/02/17 20:33 96 Room Air Physical Exam General Appearance: WD/WN, + mild distress (sitting up in bed) Eyes: bilateral eyes normal inspection, bilateral eyes PERRL, bilateral eyes EOMI ENT: normal ENT inspection, hearing grossly normal, pharynx normal Neck: supple, no adenopathy, no carotid bruits Respiratory/Chest: lungs clear, normal breath sounds, no respiratory distress, no accessory muscle use, + pertinent finding (sharp pain just below left pectoralis with deep breaths, no tenderness to palpation) Cardiovascular: regular rate, rhythm, no gallop, no murmur Abdomen: normal bowel sounds, non tender, soft Extremities: normal range of motion, non-tender, normal inspection, no pedal edema, no calf tenderness, normal capillary refill Neurologic/Psychiatric: alert, normal mood/affect, oriented x 3 Skin: normal color, warm/dry, no rash Lymphatic: no adenopathy Laboratory Results Last 24 Hours Test 07/02/17 20:02 07/03/17 05:20 07/03/17 07:04 07/03/17 10:45 White Blood Count 12.16 K/uL Red Blood Count 4.43 M/uL Hemoglobin 14.2 g/dL Hematocrit 40.7 % Mean Corpuscular Volume 91.9 fL Mean Corpuscular Hemoglobin 32.1 pg Mean Corpuscular Hemoglobin Concent 34.9 g/dl Platelet Count 337 K/uL Mean Platelet Volume 9.8 fL Neutrophils (%) (Auto) 58.3 % Lymphocytes (%) (Auto) 29.2 % Monocytes (%) (Auto) 8.6 % Eosinophils (%) (Auto) 3.0 % Basophils (%) (Auto) 0.5 % Neutrophils # (Auto) 7.08 K/uL Lymphocytes # (Auto) 3.55 K/uL Monocytes # (Auto) 1.05 K/uL Eosinophils # (Auto) 0.37 K/uL Basophils # (Auto) 0.06 K/uL RDW Standard Deviation 42.6 fL RDW Coefficient of Variation 12.6 % Immature Granulocyte % (Auto) 0.4 % Immature Granulocyte # (Auto) 0.05 K/uL D-Dimer 370 ug/L FEU Sodium Level 132 mmol/L 137 mmol/L Potassium Level 3.5 mmol/L 4.4 mmol/L Chloride Level 96 mmol/L 103 mmol/L Carbon Dioxide Level 27 mmol/L 28 mmol/L Anion Gap 9.0 mmol/L 6.0 mmol/L Blood Urea Nitrogen 14 mg/dl 11 mg/dl Creatinine 1.10 mg/dl 1.10 mg/dl Est Creatinine Clear Calc Drug Dose 74.7 ml/min 74.7 ml/min Estimated GFR () 84.7 84.7 Estimated GFR (Non- 73.1 73.1 BUN/Creatinine Ratio 12.5 9.5 Random Glucose 90 mg/dl 110 mg/dl Calcium Level 9.1 mg/dl 8.5 mg/dl Magnesium Level 2.4 mg/dl Troponin I < 0.015 ng/ml < 0.015 ng/ml < 0.015 ng/ml Pro-B-Type Natriuretic Peptide 103 pg/ml Total Creatine Kinase 145 U/L 129 U/L Creatine Kinase MB 1.8 ng/ml 1.1 ng/ml Creatine Kinase MB Ratio 1.2 0.9 Triglycerides Level 105 mg/dl Cholesterol Level 134 mg/dl HDL Cholesterol 47 mg/dl LDL Cholesterol, Calculated 66 mg/dl VLDL Cholesterol, Calculated 21 mg/dl Cholesterol/HDL Ratio 2.9 Activated Partial Thromboplast Time 47.1 SECONDS Partial Thromboplastin Ratio 1.8 Erythrocyte Sedimentation Rate 9 mm/hr Lyme Disease IgG Antibody NEG Lyme Disease IgM Antibody NEG Test 07/03/17 17:20 Total Creatine Kinase 116 U/L Creatine Kinase MB 0.8 ng/ml Creatine Kinase MB Ratio 0.7 Troponin I < 0.015 ng/ml Assessment and Plan Assessment and Plan: This is a 61yo male with HTN and no previous cardiac history, nonsmoker, who presented to the ED with new chest pain on 07/02/17. He was given nitroglycerin and ASA in the ambulance en route to the ED which did not affect his pain though it was noted by the pecan sheller to have stabilized his vitals. Characterization of his chest pain: described as a "pressure," subjectively unaffected by nitroglycerin, and does not radiate up his neck or down his arm. Thus his chest pain is atypical chest pain, likely noncardiac in nature. The differential also includes costochondritis, GERD, and pulmonary embolus. Calculated STEPHANEI score of 1 point for UA/NSTEMI = 5% 14-day risk of mortality, new or recurrent TX, or severe ischemia requiring revascularization. Plan 1. chest pain/pressure, no previous cardiac history, STEPHANIE score for UA/NSTEMI of 1 point = 5% mortality/recurrent TX/ischemia risk -EKG shows LBBB, not sure if this is new or old -D-dimer negative -CT chest negative for PE -cardiac enzymes negative x2, continue to trend -continue IV heparin -nitroglycerin ointment -AM PTT -AM CBC w/o diff -AM BMP -cardiology consult completed -ASA -metoprolol 2. Hypokalemia, 3.1 on admission, 4.4 after supplementation -stable at this time -HOLD HCTZ 3. CAD screening -lipid panel completed and within normal limits 4. HTN -continue lisinopril 10mg PO daily -consider restarting HCTZ as potassium has stabilized 5. DVT prophylaxis -IV heparin -SCD -TEDs 6. FEN/GI -AHA diet Continued [facility] stay due to: multiple IV medications needed Discharge planning: home
[2017-07-03 23:36] LABS: CKMB/CK RATIO 0.8 (0-3.0)
[2017-07-04 04:32] VITALS: BP 128/77; PULSE 75; TEMP 36.7; O2SAT 93
[2017-07-04 06:02] LABS: HEMATOCRIT 38.7 % (42-52); MEAN CELL VOLUME 94.9 fL (80-100); MEAN CORPUSCULAR HEMOGLOBIN 32.1 pg (25-34); MEAN CORPUSCULAR HGB CONC 33.9 g/dl (32-36); MEAN PLATELET VOLUME 9.9 fL (7.4-10.4); PLATELET COUNT 249 K/uL (130-400); RED BLOOD COUNT 4.08 M/uL (4.7-6.1); WHITE BLOOD COUNT 10.21 K/uL (4.8-10.8)
[2017-07-04 06:13] VITALS: BP 135/83; PULSE 77
[2017-07-04] MEDS: NITROGLYCERIN OINT 2% 1GM PACKET EXT SCH ×2 (06:14→12:00)
[2017-07-04 06:22] LABS: PARTIAL THROMBOPLASTIN RATIO 2.9
[2017-07-04 06:34] LABS: BUN/CREATININE RATIO 10.7 (10-20); CALCIUM 8.5 mg/dl (8.5-10.1); CREATININE 1.1 mg/dl (0.60-1.40)
[2017-07-04 07:14] VITALS: BP 129/82; PULSE 76; TEMP 36.6; O2SAT 97
[2017-07-04] MEDS: POTASSIUM CHLORIDE 20 MEQ TABCR PO SCH (07:20)
[2017-07-04] MEDS: METOPROLOL TARTRATE 25 MG TAB PO SCH (07:20)
[2017-07-04] MEDS: ASPIRIN 81 MG ECTAB PO SCH (07:20)
[2017-07-04] MEDS: MULTIVITAMIN TAB PO SCH (07:20)
[2017-07-04] MEDS: DICLOFENAC SOD 1% GEL 100 GM TUBE EXT SCH (07:20)
[2017-07-04] MEDS ORDERED: REGADENOSON 0.4 MG/5 ML SYR ONE (07:48)
[2017-07-04 11:24] VITALS: BP 132/87; PULSE 56; TEMP 36.9; O2SAT 99
--- NOTE | 2017-07-04 12:06 | Discharge Instructions ---
Discharge Instructions Date of Service Jul 04, 2017. Admission Reason for Admission: Lbbb,Substernal Chest Pain Discharge Discharge Diagnosis / Problem: Musculoskeletal chest pain/left intercostal spasm Discharge Goals Goal(s): Diagnostic testing Activity Recommendations Activity Limitations: resume your previous activity Lifting Limitations: none Exercise/Sports Limitations: as tolerated Shower/Bathe: no limitations Driving or Machine Use: no limitations . Instructions / Follow-Up Instructions / Follow-Up You came to the hospital for chest pain that was concerning you. We did a heart tracing (EKG) that showed changes that may be suggestive of stress on the heart, but because you have no previous EKGs to compare to, it was unclear whether this was a benign finding or suggestive of heart damage. We did blood tests that were fortunately negative, and indicate that the chest pain that you experienced was not related to a heart attack. We consulted our panel raiser operator who evaluated you given the abnormalities on your EKG. To exclude any underlying heart disease, the did a nuclear stress test which was fortunately normal. As such, we feel you can be discharged home back to the care of your PCP and we will arrange for follow-up with the panel raiser operator in the office in 1 month. Because we saw no signs of heart disease, we have not started you on any new medications and we have not made any changes to your current medications. Based on your exam, it was most likely related to muscle spasm between the ribs. This should improve on its own. You can hoa Voltaren gel over the counter or try Tylenol or Ibuprofen over the counter. If your symptoms fail to improve, acutely worsen, please seek medical attention immediately by either calling your primary care provider or going to your nearest emergency department. If you need a new primary care provider, you can call Dr. Vasu Barr ( [facility]) at [phone] Otherwise, please see your primary care provider in 3-5 days to ensure that your symptoms continue to improve. Current Hospital Diet Patient's current hospital diet: AHA Diet (Heart Healthy) Discharge Diet Recommended Diet: AHA Diet (Heart Healthy) Pending Studies Studies pending at discharge: no Laboratory Results Lipid Panel Test 07/03/17 05:20 Range/Units Triglycerides Level 105 0-150 mg/dl Cholesterol Level 134 0-200 mg/dl HDL Cholesterol 47 mg/dl Cholesterol/HDL Ratio 2.9 LDL Cholesterol, Calculated 66 mg/dl Medical Emergencies . Who to Call and When: Medical Emergencies: If at any time you feel your situation is an emergency, please call 911 immediately. . Non-Emergent Contact Non-Emergency issues call your: Primary Care Provider Call Non-Emergent contact if: your pain is concerning you, you have any medication questions . . "Provider Documentation" section prepared by Vasu Barr. . VTE Core Measure Inpt VTE Proph given/why not?: Other Anticoagulation (Heparin IV standard dose , no bolus, per weight based protocol)
[2017-07-04 12:28] VITALS: BP 132/87; PULSE 56; TEMP 36.9; O2SAT 99
[2017-07-04] MEDS ORDERED: DICL1GEL12 EXT (12:33)
--- NOTE | 2017-07-04 13:46 | Discharge Summary ---
Discharge Summary Date of Service Jul 04, 2017. (Vasu Barr MD) Discharge Summary Admission Date: Jul 02, 2017 at 23:08 Discharge Date: Jul 04, 2017 Discharge Disposition: Home Principal Diagnosis: MSK Chest Pain / Cardiac Chest Pain Rule-out Problems/Secondary Diagnoses: HTN Procedures: Interpretation Summary * Name: ANTONY SAMUEL Study Date: 07/03/2017 12:52 PM BP: 130/81 mmHg * Patient Location: [facility] HR: 68 * : 1955 (M/d/yyyy) Gender: Male Height: 70 in * Age: 61 yrs Ethnicity: [place] Weight: 170 lb * Ordering Physician: Marisa Domingo * Referring Physician: GÓMEZ * Performed By: Kimberly Pope RDCS * * Reason For Study: UNSTABLE ANGINA * BSA: 1.9 m2 * -- Conclusions -- * Left ventricular systolic function is normal. * Diastolic dysfunction, Grade II (pseudonormalization pattern). * Right ventricular systolic pressure is normal. Procedure Details * A contrast injection of Definity was performed to improve assessment of LV function. * Contrast was injected into an intravenous site in the left arm. * One vial of Definity ultrasound contrast was diluted in normal saline to a total volume of 10 ml. A total of '2' ml of solution was administered during imaging. * Lot # [id number] of Definity utilized for procedure. * Expiration date 1 SEP 12. * The attending nurse who injected the contrast agent was KIRBY WATKINS RN. Left Ventricle * The left ventricle is normal in size. * There is normal left ventricular wall thickness. * Ejection Fraction = 60-65%. * Left ventricular systolic function is normal. * Diastolic dysfunction, Grade II (pseudonormalization pattern). * The left ventricular wall motion is normal. Consultations: Cardiology (Vasu Barr MD) Medication Reconciliation New Medications: Diclofenac Sodium (Topical) (Voltaren 1% Top Gel) 1 % Gel 1 APPL EXT QID for 7 Days, #1 TUBE Continued Medications: Hydrochlorothiazide (Hctz) 25 Mg Tab 25 MG PO DAILY, TAB Lisinopril (Zestril) 10 Mg Tab 10 MG PO DAILY, TAB Multivitamin (Multivitamin) Tab 1 TAB PO DAILY Discharge Exam A 10 point review of systems was negative unless stated in the hospital course Physical Exam: General Appearance: WD/WN, no apparent distress Eyes: normal inspection, EOMI ENT: normal ENT inspection, hearing grossly normal, pharynx normal Neck: supple, no adenopathy, no JVD Respiratory/Chest: lungs clear, no respiratory distress Cardiovascular: regular rate, rhythm, no gallop, no murmur Abdomen / GI: normal bowel sounds, non tender, soft Extremities: no calf tenderness, no pedal edema Neurologic/Psychiatric: alert, normal mood/affect, oriented x 3 Skin: normal color, warm/dry, no rash Lymphatic: no adenopathy (Vasu Barr MD) Hospital Course 61 year old male presenting for chest pain rule-out. Symptoms started 1 week prior. He had 1 episode at that time of central chest pain after doing heavy lifting during his vacation. The pain subsided. He had recurrence of the pain while holding food at the barbecue 1 week later but the pain had a pressure quality. His hospital course is as follows: Chest Pain 2/2 left intercostal muscle strain - Non-cardiac etiologies evaluated CT chest negative for PE CXR negative for acute process including pneumothorax, pneumonia or rib fracture - EKG with left bundle branch block; because to be new because there are no old EKGs on record - Cardiac enzymes negative x 3 - Patient given 324 ASA en route to hospital; started on heparin infusion - Seen by cardiology recommendations appreciated Echocardiogram to evaluate for RWMA Lyme titres for evaluation of conduction block: Lyme screen negative Nuclear stress testing was normal - Bedside evaluation showed a point of tenderness in the left lower rib intercostal space; palpation was able to be reproduced at bedside OMT techniques applied to bedside Patient discharged with Voltaren gel - Given new LBBB; patient will see Dr. Rosado from cardiology in 1 month Hypertension - Continued Lisinopril - Continued HCTZ DVT Prophylaxis - On heparin infusion - BEKAH - SCD Code Status - Level I Full Shaista Disposition - Telemetry The patients pain had improved at the time of discharged. He was discharged home in stable condition. Total Time Spent: Less than 30 minutes This includes examination of the patient, discharge planning, medication reconciliation, and communication with other providers. (Vasu Barr MD) Resident Physician Supervision Note: I interviewed and examined the patient. Discussed with Dr. Barr and agree with findings and plan as documented in the note. 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 (Vasu Barr MD) Additional Copies To Wai Rosado M.D.; Vasu Barr MD
--- NOTE | 2017-07-06 13:33 | MYOCARDIAL PERFUSION SCAN ---
ONE-DAY NUCLEAR MEDICINE TECHNETIUM-99M CARDIOLITE MYOCARDIAL PERFUSION SCAN CLINICAL HISTORY: The patient was admitted to the hospital with a chest pain syndrome and found to have a left bundle branch block. COMPARISON: None. TECHNIQUE: For the stress portion of the study, 33.0 mCi of Technetium 99 m Cardiolite IV was injected at 09:20 am on 07/04/2017. 30 minutes following the injection, imaging of the heart was performed in multiple projection. For the rest portion of the study, 10.7 mCi of Technetium 99 m Cardiolite was injected IV at 07:40 am. One hour following the injection, imaging of the heart was performed in the same projections. For the stress portion of Technetium 99 m Cardiolite, 33.0 mCi at 9:20 a.m. on 07/04/2017. Thirty minutes 10.7 mCi at 7:40 a.m. estate by as projections. For the stress portion of the study, 0.4 mg of Lexiscan was injected intravenously as per protocol. The patient did not experience chest discomfort nor EKG changes over the baseline abnormality with the infusion. Following the study, patient was hemodynamically stable without complaints. FINDINGS: The short axis, vertical long axis, horizontal long axis images were reviewed in detail. There is a slightly less tracer uptake in the septal wall at both stress and rest, however, this demonstrates normal systolic function. This is likely secondary to the left bundle branch block and does not represent stress-induced myocardial ischemia or prior myocardial infarction. The left ventricle demonstrates mildly reduced systolic performance without wall motion abnormality. The left ventricular ejection fraction is 47%. IMPRESSION: 1. No scintigraphic evidence of prior myocardial infarction or stress-induced myocardial ischemia. 2. No Lexiscan induced chest pain. 3. No Lexiscan induced EKG changes over the baseline abnormality. 4. Mildly reduced left ventricular ejection fraction of 47% without segmental wall motion abnormalities.
== END 2017-07-04 13:00 | disposition home or self-care (01) | DRG 313 ==
LOC: EDBD 20:27 → C.EDB 20:28 → C.MED 23:08 → CANRESERV 23:19 → ENRESERV 23:19
PROVIDERS: ADMIT Hospitalist; ATTEND Family Medicine
DX: R07.89 Other chest pain (principal); E87.1 Hypo-osmolality and hyponatremia; I10 Essential (primary) hypertension; S29.011A Strain of muscle and tendon of front wall of thorax, initial encounter; M99.08 Segmental and somatic dysfunction of rib cage; I44.7 Left bundle-branch block, unspecified; R06.09 Other forms of dyspnea; Z79.899 Other long term (current) drug therapy

== ENCOUNTER 2017-07-29 13:09 | Emergency (ER) | payer BC ==
[~2017-07-29] VITALS: Ht 177.8 cm; Wt 78.1 kg
[~2017-07-29 13:09] MED LIST changes: +DICL1GEL12 EXT; +HYDR25TA4 PO; +LISI-461 PO; +MULT-506 PO; -OXYC1TAB3 PO; -SSDCR50 EXT
[2017-07-29 13:12] VITALS: Ht 177.8 cm; Wt 78.1 kg
[2017-07-29 13:28] VITALS: O2SAT 100
[2017-07-29] MEDS ORDERED: FAMOTIDINE IV INJ 40 MG in DEXTROSE 5% 100ML 100 ML IV STA (13:31)
[2017-07-29] MEDS ORDERED: DiphenhydrAMINE HCL 50 MG/ML VIAL IV STA (13:31)
[2017-07-29] MEDS ORDERED: CLR10 PO (13:33)
--- NOTE | 2017-07-29 13:33 | EMERGENCY ROOM VISIT NOTE ---
History Report prepared by Geovany: Evonne Klein Under the Supervision of: Dr. Taqueria Ivey M.D. First contact with patient: 13:13 Chief Complaint: SWELLING TO EXTREMITY Stated Complaint: SWELLING OF FACE, RASH History of Present Illness The patient is a 61 year old white male with a past medical history of hypertension who presents to the ED with a cc of constant facial swelling beginning this morning. The patient states that yesterday he developed hives and when he woke up this morning he had a significant amount of facial swelling. Positive rash across the entire body and itchiness. Negative nausea, vomiting, abdominal pain, difficulty swallowing, SOB, changes in detergents, creams, and food. He notes that he has no known allergies. The patient reports that he has been taking Lisinopril for a year and started Claritin 1 week ago. He states that he went to [employer] just [employer] and had Benadryl and Solu-Medrol before coming in today. Source of History: patient Onset: this morning Position: other (face) Quality: other (swelling) Timing: constant Associated Symptoms: + rash, No SOB, No nausea, No vomiting, No abdominal pain Note: No changes in detergent, creams, and food. Negative difficulty swallowing. Pt has itchiness. Review of Systems See HPI for pertinent positives and negatives. A total of ten systems were reviewed and were otherwise negative. Past Medical & Surgical Medical Problems: (1) Hypertension (2) LBBB (left bundle branch block) Family History No pertinent family history stated. Social History Smoking Status: Never Smoker Alcohol Use: heavy Drug Use: none Marital Status: Housing Status: lives with family Occupation Status: employed Current/Historical Medications Scheduled Amlodipine Besylate (Norvasc), 5 MG PO QD Hydrochlorothiazide (Hctz), 25 MG PO DAILY Loratadine (Claritin), 10 MG PO DAILY Multivitamin (Multivitamin), 1 TAB PO DAILY Prednisone (Prednisone), 50 MG PO DAILY Allergies Coded Allergies: No Known Allergies (Unverified , NONE, 08/14/09) Physical Exam Vital Signs Date Time Temp Pulse Resp B/P (MAP) Pulse Ox O2 Delivery O2 Flow Rate FiO2 07/29/17 15:26 37.0 97 23 125/86 96 07/29/17 15:14 97 23 125/86 96 07/29/17 14:44 93 24 95 07/29/17 14:39 91 25 95 07/29/17 14:09 92 96 07/29/17 13:39 102 97 07/29/17 13:38 126/91 07/29/17 13:28 100 07/29/17 13:28 100 Room Air 07/29/17 13:25 99 20 126/85 99 Room Air 07/29/17 13:24 98 Room Air 07/29/17 13:22 126/85 07/29/17 13:12 37.0 111 20 142/82 99 Room Air Physical Exam GENERAL: Awake, alert, well-appearing, NAD HENT: Significant upper lip swelling, no surrounding erythema or fluctuance. Poor dentition but no signs of dental abscess, posterior oropharynx clear w/o exudate, swelling, or uvular deviation. EYES: Normal conjunctiva. Sclera non-icteric. NECK: Supple. No nuchal rigidity. FROM. No stridor. RESPIRATORY: CTAB, no rhonchi, wheezing, crackles CARDIAC: RRR, no MRG ABDOMEN: Soft, NTND, BS+ MSK: No chest wall TTP, no LE edema NEURO: GCS 15, CN 2-12 intact, moves all 4s on command SKIN: Multiple blanching erythematous macules over the chest back abdomen and extremities. Medical Decision & Procedures Medications Administered Medications (Trade) Dose Ordered Sig/Tram Route Start Time Stop Time Status Last Admin Dose Admin Diphenhydramine HCl (Benadryl Inj) 25 mg NOW STAT IV 07/29/17 13:31 07/29/17 13:34 DC 07/29/17 13:40 25 MG Famotidine 40 mg/ Dextrose 104 ml @ 200 mls/hr ONE STAT IV 07/29/17 13:31 07/29/17 14:02 DC 07/29/17 13:45 200 MLS/HR ED Course 1313: The patient was evaluated in room C2. A complete history and physical exam was performed. 1432: I reevaluated the patient. He is not having shortness of breath or worsening swelling. 1512: I reevaluated the patient. Discussed results and discharge instructions: He verbalized understanding and agreement. The patient is ready for discharge. Medical Decision The patient is a 61 year old white male with a past medical history of hypertension who presents to the ED with a cc of constant facial swelling beginning this morning. Differential diagnosis includes allergic reaction, medication reaction, hereditary angioedema, abscess, cellulitis. Patient was seen and evaluated at the bedside. Patient did complain of some mild rash but denied any other recent changes exception of Claritin. He denied any changes in detergents, creams,, shampoos, soaps, clothing. Patient denied any recent insect or animal bites. Patient does not have any known allergies to other medicines or foods. Patient denies any shortness of breath, difficulty swallowing, tightness in the chest or throat. Patient does take lisinopril. Patient did receive Benadryl as well as Solu-Medrol at the [facility]. Patient was given some additional Benadryl as well as famotidine. Patient was further evaluated and reexamined. Patient had no wheezing on exam he had no further worsening of his facial swelling. Patient had a clear posterior pharynx and no stridor over the anterior neck. Patient was advised to stop taking lisinopril was started on low-dose amlodipine. Patient was told to return if he had any worsening of symptoms, shortness of breath, throat or chest tightness or difficulty breathing. Patient was given strict follow-up, discharge, return precautions. Patient agreeable with plan of care patient was safely discharged home. Medication Reconcilliation Current Medication List: was personally reviewed by me Blood Pressure Screening Patient's blood pressure: Elevated blood pressure Blood pressure disposition: Elevated BP felt to be situational Impression Primary Impression: Facial swelling Additional Impressions: Angioedema Urticaria Scribe Attestation The scribe's documentation has been prepared under my direction and personally reviewed by me in its entirety. I confirm that the note above accurately reflects all work, treatment, procedures, and medical decision making performed by me. Departure Information Dispostion Home / Self-Care Prescriptions Prednisone (Prednisone) 50 Mg Tab 50 MG PO DAILY for urticaria for 4 Days, #4 TAB Prov: Taqueria Ivey M.D. 07/29/17 Amlodipine Besylate (NORVASC) 5 Mg Tab 5 MG PO QD for HTN for 30 Days, #30 TAB 1 Refill Prov: Taqueria Ivey M.D. 07/29/17 Referrals No Doctor, Assigned (PCP) Patient Instructions ED Angioedema, My [facility] Additional Instructions Please return to the emergency department if you have worsening or recurrent symptoms not amenable to at-home treatment. Please call for a follow-up appointment with her primary care physician. Please take your medications as prescribed. If you have other concerns and/or complaints please feel free to also call your primary care physician's office or return the ED for further evaluation, management, and treatment. Please stop using your lisinopril and begin taking amlodipine. If you have worsening swelling, shortness of breathe, throat/chest tightness, or difficulty breathing/swallowing, please return to the ED. You were found to have an elevated blood pressure today (>120 sytolic or >90 diastolic). Per medicare guidelines, you need to follow up with this blood pressure screening with your Primary Care Physician (PCP). For a new PCP call [phone]. Take 600 mg Ibuprofen every 6 hours for pain with food for no more than 2 consecutive days. You may also take tylenol 1000mg every 6 hours for pain. You may apply ice packs to face to help w/ swelling. You may take benadryl for itching and apply cortisone or benadryl cream to affected itchy areas as needed for no more than 3 consecutive days. You have been examined and treated today on an emergency basis only. This is not a substitute for, or an effort to provide, complete comprehensive medical care. It is impossible to recognize and treat all injuries or illnesses in a single emergency department visit. It is therefore important that you follow up closely with [facility]. Call as soon as possible for an appointment. Thank you for your time and consideration. I look forward to speaking with you again soon. Please don't hesitate to call us if you have any questions. Work Instructions Return To Work: 1 day Problem Qualifiers Additional Impressions: Angioedema Encounter type: initial encounter Qualified Codes: T78.3XXA - Angioneurotic edema, initial encounter
[2017-07-29] MEDS ORDERED: FAMOTIDINE 20MG/102 ML D5W ONE (13:43)
[2017-07-29] MEDS ORDERED: PRED50TA PO (14:53)
[2017-07-29] MEDS ORDERED: AMLO5TAB2 PO (14:53)
[2017-07-29 15:26] VITALS: BP 125/86; PULSE 97; TEMP 37; O2SAT 96
== END 2017-07-29 15:27 | disposition home or self-care (01) ==
LOC: C.EDB 13:11 → C.EDC 15:27
DX: R22.0 Localized swelling, mass and lump, head (principal); T78.3XXA Angioneurotic edema, initial encounter; I10 Essential (primary) hypertension; Z79.899 Other long term (current) drug therapy; Z86.79 Personal history of other diseases of the circulatory system

== ENCOUNTER → 2018-01-06 | Outpatient (CLI) | payer OTHER ==
[~2018-01-06] MED LIST changes: +AMLO5TAB2 PO; +CLR10 PO; -DICL1GEL12 EXT; -LISI-461 PO
--- NOTE | 2018-01-06 11:26 | DIAGNOSTIC IMAGING REPORT ---
L ANKLE MIN 3 VIEWS ROUTINE CLINICAL HISTORY: ANKLE SWELLING pain COMPARISON: None. DISCUSSION: The bones and joint spaces appear intact. There is no evidence of fracture, dislocation or bony disease. There is no evidence for soft tissue swelling. IMPRESSION: Negative study. The above report was generated using voice recognition software. It may contain grammatical, syntax or spelling errors. Electronically signed by: Shimon Camilo M.D. 01/06/2018 11:25 AM Dictated Date/Time: 01/06/2018 11:24 AM
--- NOTE | 2018-01-06 11:27 | DIAGNOSTIC IMAGING REPORT ---
L FOOT MIN 3 VIEWS ROUTINE CLINICAL HISTORY: ANKLE SWELLING pain. Edema. COMPARISON: None. DISCUSSION: Moderate degenerative change first metatarsophalangeal joint. All remaining osseous structures are unremarkable. No evidence for fracture or dislocation. Small heel spur. There is no evidence for soft tissue swelling. IMPRESSION: Moderate degenerative change first metatarsophalangeal joint. Otherwise negative study. The above report was generated using voice recognition software. It may contain grammatical, syntax or spelling errors. Electronically signed by: Shimon Camilo M.D. 01/06/2018 11:26 AM Dictated Date/Time: 01/06/2018 11:25 AM
== END | disposition home or self-care (01) ==
LOC: C.RAD 11:04
PROVIDERS: ATTEND Physician Assistant
DX: M25.473 Effusion, unspecified ankle (principal); M19.072 Primary osteoarthritis, left ankle and foot

== ENCOUNTER 2021-08-16 07:45 | Inpatient (IN) ==
--- NOTE | 2021-08-16 08:20 | Emergency Department Note ---
Impression & Plan Syncope and collapse, CHI (closed head injury), Cervical strain ED Provider Note INFORMANT: Patient ED PROVIDER(S): Caio Mojica MD CHIEF COMPLAINT: Syncope PLAN: Disposition: Admitted Condition: Good Outpatient prescription management: none Referral: None MEDICAL DECISION MAKING: Patient presented after syncopal episode. He suffered multiple facial abrasions and contusions. No lacerations require suturing. He did have complaints of neck pain and tingling in the right arm. He was in a cervical collar. CT imaging of the head and neck did not reveal any acute findings. Chronic degenerative changes noted of the cervical spine. There was narrowing which was concerning given his neurologic symptoms. He did not have any focal weakness on examination. The patient removed his own cervical collar despite being advised not to. He stated his symptoms had resolved. The patient was ordered an MRI and after significant discussion agreed. The patient was given Ativan as he was feeling claustrophobic. He underwent the MRI and it showed a anterior longitudinal ligament strain but not disruption. I discussed this with who recommended an Galata collar and 1 week follow-up. The patient did agree to wear the collar and I did place this on him. The patient's syncope work-up revealed a left bundle branch block on his EKG. This was not significant change from prior. The patient had an unremarkable CBC chemistry panel except for mild Pedro Pablo ptosis. No infectious findings were found on examination. I suspect that the patient's leukocytosis is from the syncopal event. He had a negative troponin and TSH. I discussed his syncopal event with Dr. Braga of cardiology. He felt the patient needs to be monitored and have an EP study performed. Consultation was made with Dr. Owen Deal of the [facility] service. Patient was evaluated in the ER for further management. Triage Nursing notes reviewed and agree them. Vital Signs: reviewed and remarkable for no significant abnormalities Differential diagnosis: Vasovagal event, dehydration, infection, hypoglycemia, electrolyte abn ormalities, cardiac sources, intracerebral event, pulmonary embolism, seizure, toxicologic, neurologic, as well as other pathologies. Diagnostics interpreted by me: ECG: Twelve-lead ECG reveals normal sinus rhythm at 68 bpm. Left bundle branch block. No significant concordant or discordant ST elevation. No PVCs. Cardiac Monitoring: Cardiac monitoring ordered by me: The patient was placed on continuous cardiac monitoring and observed. It revealed a normal sinus rhythm at 73 beats per minute without ectopy or evidence of dysrhythmia. Imaging studies: CT scans and MRIs as above. I refer you to the EMR for further details. HPI: The patient is a 65 year old male who presents to the Emergency Room with complaints of syncope. This started this morning and is resolved. Patient was getting out of his car, felt dizzy, then woke up on the gravel parking lot. The patient also notes the following associated symptoms, headache and multiple abrasions to face and forehead, right arm tingling, neck pain. The patient has taken no medication for relieving factors. Current pain is rated as 1/10. Patient notes this is the second visit over the last month for same type of event. Pt denies fevers, chills, diaphoresis, visual changes, chest pain, barbie athing difficulties, nausea, vomiting, abdominal pain, back pain, melena, hematochezia, urinary symptoms, numbness, weakness, lymphadenopathy, rash, or other complaints. ROS: See above HPI for pertinent positives & negatives. A total of 10 systems reviewed and were otherwise negative. PAST MEDICAL HISTORY:See Below , HTN PAST SURGICAL HISTORY:See Below, FAMILY HISTORY:See Below SOCIAL HISTORY:See Below, HOME MEDICATIONS:See Below ALLERGIES:See Below VITALS:See Below PHYSICAL EXAMINATION: GENERAL: Awake, alert, well-appearing, in no distress HENT: Normocephalic, multiple abrasions and contusions on the forehead and bridge of nose. Oropharynx unremarkable. EYES: Normal conjunctiva. Sclera non-icteric. NECK: Inspection normal. Mild posterior tenderness. Supple. No nuchal rigidity. FROM. No masses. RESPIRATORY: Clear to auscultation. No wheezes. No rales. Normal respiratory effort. CARDIAC: Normal rate. Normal rhythm. No murmurs. No rubs. Extremities warm and well perfused. Pulses equal. No JVD. GI: Soft, non-distended. No tenderness to palpation. No rebound or guarding. No masses. RECTAL: Deferred. MUSCULOSKELETAL: Atraumatic. Chest examination reveals no tenderness. The back is symmetrical on inspection without obvious abnormality. There is no CVA tenderness to palpation. No joint edema. LOWER EXTREMITIES: Calves are equal size bilaterally and non-tender. No edema. No discoloration. NEURO: Normal sensorium. No sensory or motor deficits noted except for subjective tingling in the RUE. SKIN: No rash or jaundice noted. Caio Mojica MD Past Med/Surg History Medical History (Updated 08/16/21 @ 16:00 by Caio Mojica MD) Angioedema Hypertension Syncope and collapse Family History (Updated 08/16/21 @ 15:31 by ROXANA Baldwin) Father Stroke Mother Stroke Other Dyslipidemia Hypertension Social History Smoking Status: Never smoker Tobacco Type: Smokeless Tobacco (Dip or Chew) Second Hand Exposure: No; Do You Dip or Chew Tobacco: Yes; Hx Alcohol Use: No Hx Substance Use: No Preferred Language: Danish Feels Safe at Home: Yes Allergies Allergies Allergy/AdvReac Type Severity Reaction Status Date / Time No Known Allergies Allergy Unknown NONE Unverified 08/16/21 08:44 Home Meds Home Medications Medication Instructions Recorded Confirmed hydrochlorothiazide 25 mg tablet 12.5 mg PO DAILY 07/17/21 08/16/21 metoprolol succinate 100 mg 100 mg PO BID 07/17/21 08/16/21 tablet,extended release 24 hr multivitamin 1 tab PO DAILY 07/17/21 08/16/21 amlodipine 10 mg tablet 10 mg PO HS 08/16/21 08/16/21 loratadine 10 mg tablet (Claritin) 10 mg PO DAILY 08/16/21 08/16/21 Results & Data (ED) Vital Signs Vital Signs - 24 hr 08/16/21 07:50 08/16/21 08:13 08/16/21 08:20 Temperature 36.7 C Temperature Source Oral Pulse Rate 75 72 72 Pulse Rate from SpO2 Sensor 72 Pulse Rhythm Regular Respiratory Rate 20 24 20 Respiratory Effort / Characteristics Non-Labored Spontaneous Respiratory Depth Normal Blood Pressure 166/93 H 153/92 H Blood Pressure Mean 117 112 Blood Pressure Position Sitting Pulse Oximetry 99 98 99 Oxygen Delivery Method Room Air Room Air Sepsis Recent Fever Within 48 Hours No Sepsis New/Unexplained Change in Mental Status N/A Sepsis Action Taken by Nursing No Action Required 08/16/21 08:30 08/16/21 09:10 08/16/21 09:20 Temperature Temperature Source Pulse Rate 62 62 59 L Pulse Rate from SpO2 Sensor 62 61 59 L Pulse Rhythm Respiratory Rate 16 19 14 Respiratory Effort / Characteristics Respiratory Depth Blood Pressure 136/93 Blood Pressure Mean 107 Blood Pressure Position Pulse Oximetry 97 99 98 Oxygen Delivery Method Sepsis Recent Fever Within 48 Hours Sepsis New/Unexplained Change in Mental Status Sepsis Action Taken by Nursing 08/16/21 09:30 08/16/21 10:00 08/16/21 10:30 Temperature Temperature Source Pulse Rate 58 L 56 L 58 L Pulse Rate from SpO2 Sensor 59 L 55 L 59 L Pulse Rhythm Respiratory Rate 14 20 14 Respiratory Effort / Characteristics Respiratory Depth Blood Pressure 143/79 H 135/81 146/92 H Blood Pressure Mean 100 99 110 Blood Pressure Position Pulse Oximetry 99 98 99 Oxygen Delivery Method Sepsis Recent Fever Within 48 Hours Sepsis New/Unexplained Change in Mental Status Sepsis Action Taken by Nursing 08/16/21 11:00 08/16/21 11:30 08/16/21 12:00 Temperature Temperature Source Pulse Rate 58 L 89 74 Pulse Rate from SpO2 Sensor 58 L 86 75 Pulse Rhythm Respiratory Rate 13 16 17 Respiratory Effort / Characteristics Respiratory Depth Blood Pressure 146/88 H 160/88 H 146/87 H Blood Pressure Mean 107 112 106 Blood Pressure Position Pulse Oximetry 99 99 99 Oxygen Delivery Method Sepsis Recent Fever Within 48 Hours Sepsis New/Unexplained Change in Mental Status Sepsis Action Taken by Nursing 08/16/21 12:53 08/16/21 13:00 08/16/21 13:30 Temperature Temperature Source Pulse Rate Pulse Rate from SpO2 Sensor 89 72 77 Pulse Rhythm Respiratory Rate Respiratory Effort / Characteristics Respiratory Depth Blood Pressure 151/101 H 147/100 H Blood Pressure Mean 117 115 Blood Pressure Position Pulse Oximetry 98 99 98 Oxygen Delivery Method Sepsis Recent Fever Within 48 Hours Sepsis New/Unexplained Change in Mental Status Sepsis Action Taken by Nursing 08/16/21 14:00 08/16/21 14:13 08/16/21 14:30 Temperature Temperature Source Pulse Rate 73 70 Pulse Rate from SpO2 Sensor 75 73 72 Pulse Rhythm Respiratory Rate 16 12 Respiratory Effort / Characteristics Respiratory Depth Blood Pressure 157/94 H 147/102 H 156/97 H Blood Pressure Mean 115 117 116 Blood Pressure Position Pulse Oximetry 96 97 99 Oxygen Delivery Method Sepsis Recent Fever Within 48 Hours Sepsis New/Unexplained Change in Mental Status Sepsis Action Taken by Nursing 08/16/21 15:00 Temperature Temperature Source Pulse Rate 73 Pulse Rate from SpO2 Sensor 72 Pulse Rhythm Respiratory Rate 17 Respiratory Effort / Characteristics Respiratory Depth Blood Pressure 157/108 H Blood Pressure Mean 124 Blood Pressure Position Pulse Oximetry 99 Oxygen Delivery Method Sepsis Recent Fever Within 48 Hours Sepsis New/Unexplained Change in Mental Status Sepsis Action Taken by Nursing Laboratory Data Result diagrams: 08/16/21 08:31 08/16/21 08:31 Lab Results 08/16/21 08/16/21 08/16/21 Range/Units 08:31 08:31 08:31 WBC 12.25 H (4.8-10.8) K/uL RBC 4.72 (4.7-6.1) M/uL Hgb 15.1 (14.0-18.0) g/dL Hct 45.4 (42-52) % MCV 96.2 (80-100) fL MCH 32.0 (25-34) pg MCHC 33.3 (32-36) g/dL RDW Std Deviation 43.3 (36.4-46.3) fL RDW Coeff of Maynor 12.4 (11.5-14.5) % Plt Count 316 (130-400) K/uL MPV 10.4 (7.4-10.4) fL Immature Gran % (Auto) 0.2 % Neut % (Auto) 74.0 % Lymph % (Auto) 12.8 % Holmes % (Auto) 9.1 % Eos % (Auto) 3.3 % Baso % (Auto) 0.6 % Neut # (Auto) 9.05 H (1.4-6.5) K/uL Lymph # (Auto) 1.57 (1.2-3.4) K/uL Holmes # (Auto) 1.12 H (0.11-0.59) K/uL Eos # (Auto) 0.41 (0-0.5) K/uL Baso # (Auto) 0.07 (0-0.2) K/uL Immature Gran # (Auto) 0.03 H (0.00-0.02) K/uL PT 9.9 (9.0-12.0) Seconds INR 1.0 (0.9-1.1) APTT 26.2 (21.0-31.0) Seconds PTT Ratio 1.0 D-Dimer 350 (0-500) ug/L FEU Sodium 137 (136-145) mmol/L Potassium 4.0 (3.5-5.1) mmol/L Chloride 102 (98-107) mmol/L Carbon Dioxide 28 (21-32) mmol/L Anion Gap 7.0 (3-11) BUN 16 (7-18) mg/dl Creatinine 1.28 (0.6-1.4) mg/dl Est Cr Clr Drug Dosing 62.9 ml/min Est GFR ( Amer) 68.6 ml/min Est GFR (Non-Af Amer) 59.2 ml/min BUN/Creatinine Ratio 12.6 (10-20) Glucose 105 H (70-99) mg/dl Calcium 9.7 (8.5-10.1) mg/dl Magnesium 2.9 H (1.8-2.4) mg/dl Total Bilirubin 0.3 (0.2-1) mg/dl AST 25 (15-37) U/L ALT 48 (12-78) U/L Alkaline Phosphatase 84 (45-117) U/L Troponin I < 0.015 (0-0.045) ng/ml Total Protein 8.5 H (6.4-8.2) gm/dl Albumin 4.0 (3.4-5.0) gm/dl Globulin 4.5 H (2.5-4.0) gm/dl Albumin/Globulin Ratio 0.9 (0.9-2) TSH 1.930 (0.300-4.500) uIu/ml Urine Color Urine Appearance (Clear) Urine pH (4.5-7.5) Ur Specific [place] (1.000-1.030) Urine Protein (Negative) Urine Glucose (UA) (Negative) Urine Ketones (Negative) Urine Blood (Negative) Urine Nitrite (Negative) Urine Bilirubin (Negative) Urine Urobilinogen (Negative) Ur Leukocyte Esterase (Negative) COVID-19 Eval Order 08/16/21 08/16/21 Range/Units 11:14 14:32 WBC (4.8-10.8) K/uL RBC (4.7-6.1) M/uL Hgb (14.0-18.0) g/dL Hct (42-52) % MCV (80-100) fL MCH (25-34) pg MCHC (32-36) g/dL RDW Std Deviation (36.4-46.3) fL RDW Coeff of Maynor (11.5-14.5) % Plt Count (130-400) K/uL MPV (7.4-10.4) fL Immature Gran % (Auto) % Neut % (Auto) % Lymph % (Auto) % Holmes % (Auto) % Eos % (Auto) % Baso % (Auto) % Neut # (Auto) (1.4-6.5) K/uL Lymph # (Auto) (1.2-3.4) K/uL Holmes # (Auto) (0.11-0.59) K/uL Eos # (Auto) (0-0.5) K/uL Baso # (Auto) (0-0.2) K/uL Immature Gran # (Auto) (0.00-0.02) K/uL PT (9.0-12.0) Seconds INR (0.9-1.1) APTT (21.0-31.0) Seconds PTT Ratio D-Dimer (0-500) ug/L FEU Sodium (136-145) mmol/L Potassium (3.5-5.1) mmol/L Chloride (98-107) mmol/L Carbon Dioxide (21-32) mmol/L Anion Gap (3-11) BUN (7-18) mg/dl Creatinine (0.6-1.4) mg/dl Est Cr Clr Drug Dosing ml/min Est GFR ( Amer) ml/min Est GFR (Non-Af Amer) ml/min BUN/Creatinine Ratio (10-20) Glucose (70-99) mg/dl Calcium (8.5-10.1) mg/dl Magnesium (1.8-2.4) mg/dl Total Bilirubin (0.2-1) mg/dl AST (15-37) U/L ALT (12-78) U/L Alkaline Phosphatase (45-117) U/L Troponin I (0-0.045) ng/ml Total Protein (6.4-8.2) gm/dl Albumin (3.4-5.0) gm/dl Globulin (2.5-4.0) gm/dl Albumin/Globulin Ratio (0.9-2) TSH (0.300-4.500) uIu/ml Urine Color Yellow Urine Appearance Clear (Clear) Urine pH 5.5 (4.5-7.5) Ur Specific [place] 1.007 (1.000-1.030) Urine Protein Negative (Negative) Urine Glucose (UA) Negative (Negative) Urine Ketones Negative (Negative) Urine Blood Negative (Negative) Urine Nitrite Negative (Negative) Urine Bilirubin Negative (Negative) Urine Urobilinogen Negative (Negative) Ur Leukocyte Esterase Negative (Negative) COVID-19 Eval Order Covid19 at [facility] Administered Medications Discontinued Medications Sodium Chloride (Nss) 500 mls @ 999 mls/hr IV .Q31M JULIA Stop: 08/16/21 09:00 Last Infusion: 08/16/21 10:43 Dose: 0 mls/hr Documented by: [id number] Admin: 08/16/21 08:37 Dose: 999 mls/hr Documented by: [id number] Lorazepam (Ativan) 1 mg in 2 mls @ 2 mls/min IV NOW STA Stop: 08/16/21 11:41 Last Admin: 08/16/21 12:03 Dose: 2 mls/min Documented by: [id number] Imaging Data Radiologist's Impression: Cervical Spine CT 08/16/21 08:20 CT OF THE CERVICAL SPINE CLINICAL HISTORY: neck pain, syncope, right arm tingling COMPARISON STUDY: No previous studies for comparison. CT DOSE: 933.90 mGy.cm TECHNIQUE: CT scan of the cervical spine was performed from the skull base to the thoracic inlet. Images are reviewed in the axial, sagittal, and coronal planes. IV contrast was not administered for this examination. A dose lowering technique was utilized adhering to the principles of ALARA. FINDINGS: The visualized portions of the lung apices reveal no evidence of pneumothorax. The prevertebral soft tissues are normal. No fractures or subluxations are visualized. Normal cervical lordosis is preserved. Vertebral body heights are maintained. Multilevel intervertebral disc space narrowing with osteophytes are seen. Few areas of posterior longitudinal ligament ossifications are seen. Extension of ossified articles to the central canal is seen at the C5-C6 level and associated with its narrowing. Also few other areas of central canal stenosis are seen at the C3-C4, C4-C5 levels. Bilateral neural foraminal stenosis is seen at the mid cervical level. IMPRESSION: 1. No acute fracture or traumatic malalignment. 2. Degenerative changes of the spine as detailed above. ACT 112: Negative or not required by law. The above report was generated using voice recognition software. It may contain grammatical, syntax or spelling errors. Electronically signed by: Catalina Shabazz DO 08/16/2021 9:21 AM Chest X-Ray 08/16/21 08:20 XR chest 1V portable CLINICAL HISTORY: syncope COMPARISON STUDY: July 02, 2017 FINDINGS: No pneumothorax. No pleural effusion. No large infiltrates or consolidative lesions are seen. Lung volumes are decreased with crowded lung markings. Cardiomediastinal silhouette is within normal limits in size. No significant pulmonary vascular congestion.. Osseous structures: Degenerative changes of the spine. IMPRESSION: 1. No acute pulmonary process. ACT 112: Negative or not required by law. The above report was generated using voice recognition software. It may contain grammatical, syntax or spelling errors. Electronically signed by: Catalina Shabazz DO 08/16/2021 9:[address] 08/16/21 08:20 CT SCAN OF THE BRAIN WITHOUT IV CONTRAST CLINICAL HISTORY: Syncope. COMPARISON STUDY: No priors. TECHNIQUE: Unenhanced axial CT scan of the brain is performed from the vertex to the skull base. A dose lowering technique was utilized adhering to the principles of ALARA. FINDINGS: Brain parenchyma: There is minimal microangiopathic change. There is no hemorrha ge, mass effect, or evidence of acute territorial ischemia by CT criteria. Romeo- white matter differentiation is preserved. No extra-axial fluid collection is seen. Ventricles, sulci, cisterns: Normal in configuration. Intracranial vasculature: There is atherosclerotic calcification of the cavernous carotid arteries. Calvarium: There is no depressed calvarial fracture. Soft tissues: There is a frontal scalp hematoma. Sinuses and mastoids: There is trace mucosal thickening within the left maxillary antrum, the ethmoid sinuses, and the sphenoid sinuses. The mastoid air cells are well pneumatized. Orbits: The bony orbits are grossly intact. IMPRESSION: 1. There is no hemorrhage, mass effect, or evidence of acute territorial ischemia by CT criteria. 2. Frontal scalp hematoma. ACT 112: Negative or not required by law. Electronically signed by: Mars Santos M.D. 08/16/2021 9:12 AM Cervical Spine MRI 08/16/21 10:44 MR cervical spine wo con HISTORY: 65 years-old Male fall, right arm numbness, spinal stenosis on CT acute neck pain status post fall COMPARISON: CT cervical spine of same day TECHNIQUE: Multiplanar multisequence MRI of the cervical spine was obtained without the use of IV contrast. FINDINGS: Motion degraded exam. Prevertebral edema measures up to 4-5 mm extending from C2-C3 to the C5 level. No definite disruption of the anterior longitudinal ligament identified. The imaged posterior fossa structures are unremarkable. Mild mucosal thickening of the maxillary sinuses. Signal within the brainstem, cervical and imaged thoracic spinal cord appears unremarkable. No acute fracture, subluxation or bone marrow edema identified. C2-C3: Mild intervertebral disc space narrowing and spondylitic spurring with posterior annular disc bulge and mild to moderate facet arthrosis. Mild central canal stenosis, AP dimension of the thecal sac measuring 8 mm. C3-C4: Mild intervertebral disc space narrowing with uncovertebral spurring, circumferential annular disc bulge with mild to moderate facet arthrosis. AP dimension of the thecal sac measures 7 mm. Mild to moderate central canal stenosis. Mild bilateral neural foraminal narrowing. C4-C5: Moderate intervertebral disc space narrowing with uncovertebral spurring and circumferential annular disc bulge with posterior disc osteophyte complex and mild to moderate facet arthrosis. There is moderate central canal stenosis, AP dimension of the thecal sac measuring 5 mm. Severe right with moderate to severe left neural foraminal stenosis. C5-C6: Moderate intervertebral disc space narrowing with uncovertebral spurring and circumferential annular disc bulge with posterior disc osteophyte complex and mild to moderate facet arthrosis. There is moderate central canal stenosis, AP dimension of the thecal sac measuring 6 mm. Moderate right with mild to moderate left neural foraminal narrowing. C6-C7: Mild intervertebral disc space narrowing with uncovertebral spurring and circumferential annular disc bulge with posterior disc osteophyte complex and mild to moderate facet arthrosis. There is mild central canal stenosis with AP dimension of the thecal sac measuring approximately 8 mm. Moderate left with mild to moderate right neural foraminal narrowing. C7-T1: Small posterior annular disc bulge with mild to moderate facet arthrosis. Small right paracentral disc protrusion. No central canal or neural foraminal narrowing. IMPRESSION: 1. Motion degraded exam. 2. Mild prevertebral edema extends from C2-C5, likely on a posttraumatic basis. This may reflect a mild ligamentous injury. No disruption of the anterior longitudinal ligament identified. 3. Multilevel discogenic degeneration and facet arthrosis as detailed above results in multilevel central canal stenosis which is moderate at C4-C5 and C5- C6. 4. Multilevel neural foraminal narrowing as above, severe on the right and moderate to severe on the left at C4-C5. 5. Normal bone marrow signal without acute fracture or subluxation. ACT 112: Negative or not required by law. The above report was generated using voice recognition software. It may contain grammatical, syntax or spelling errors. Electronically signed by: Quinn Atkinson M.D. 08/16/2021 1:20 PM Discharge Plan Visit Data Chief Complaint: Head Injury, Minor Stated Complaint: FALL-HIT HEAD,DIZZINESS(OFTEN)CAUSED THE FALL ED Provider: Caio Mojica Discharge Problem: Syncope and collapse, CHI (closed head injury), Cervical strain Forms Stand Alone Forms: [facility] [employer] Prescriptions Prescriptions: No Action metoprolol succinate 100 mg tablet extended release 24 hr 100 mg PO BID RF: 0 hydrochlorothiazide 25 mg tablet 12.5 mg PO DAILY RF: 0 multivitamin Tablet 1 tab PO DAILY RF: 0 amlodipine 10 mg Tablet 10 mg PO HS RF: 0 loratadine [Claritin] 10 mg Tablet 10 mg PO DAILY RF: 0 Referrals Referrals: PCP,NO [Physician] -
[2021-08-16] MEDS ORDERED: SODIUM CHLORIDE 0.9% 500 ML IV SCH (08:30)
[2021-08-16 08:56] LABS: Basophils # (auto) 0.07 K/uL (0-0.2); Basophils % (auto) 0.6 %; Eosinophils # (auto) 0.41 K/uL (0-0.5); Eosinophils % (auto) 3.3 %; Hematocrit (blood only) 45.4 % (42-52); Hemoglobin 15.1 g/dL (14.0-18.0); Immature Granulocytes # (auto) 0.03 K/uL (0.00-0.02); Immature Granulocytes % (auto) 0.2 %; Lymphocytes # (auto) 1.57 K/uL (1.2-3.4); Lymphocytes % (auto) 12.8 %; Mean Corpuscular Hgb Conc 33.3 g/dL (32-36); Mean Corpuscular Volume 96.2 fL (80-100); Mean Platelet Volume 10.4 fL (7.4-10.4); Monocytes # (auto) 1.12 K/uL (0.11-0.59); Monocytes % (auto) 9.1 %; Neutrophils # (auto) 9.05 K/uL (1.4-6.5); Platelet Count 316 K/uL (130-400); RDW Coefficient of Variation 12.4 % (11.5-14.5); RDW Standard Deviation 43.3 fL (36.4-46.3); Red Blood Count 4.72 M/uL (4.7-6.1); White Blood Count 12.25 K/uL (4.8-10.8)
[2021-08-16 09:11] LABS: Alanine Aminotransferase 48 U/L (12-78); Aspartate Aminotransferase 25 U/L (15-37); BUN Creatinine Ratio 12.6 (10-20); Blood Urea Nitrogen 16 mg/dl (7-18); Calcium 9.7 mg/dl (8.5-10.1); Carbon Dioxide 28 mmol/L (21-32); Chloride 102 mmol/L (98-107); Creatinine Clr Calc Pharmacy 62.9 ml/min; Est GFR (African American) 68.6 ml/min; Est GFR (Non-African American) 59.2 ml/min; Glucose 105 mg/dl (70-99); Magnesium 2.9 mg/dl (1.8-2.4); Sodium 137 mmol/L (136-145)
--- NOTE | 2021-08-16 09:13 | XRay Report ---
XR chest 1V portable CLINICAL HISTORY: syncope COMPARISON STUDY: July 02, 2017 FINDINGS: No pneumothorax. No pleural effusion. No large infiltrates or consolidative lesions are seen. Lung volumes are decreased with crowded lung markings. Cardiomediastinal silhouette is within normal limits in size. No significant pulmonary vascular congestion.. Osseous structures: Degenerative changes of the spine. IMPRESSION: 1. No acute pulmonary process. ACT 112: Negative or not required by law. The above report was generated using voice recognition software. It may contain grammatical, syntax o r spelling errors. Electronically signed by: Catalina Shabazz DO 08/16/2021 9:11 AM
--- NOTE | 2021-08-16 09:14 | CT Scan Report ---
CT SCAN OF THE BRAIN WITHOUT IV CONTRAST CLINICAL HISTORY: Syncope. COMPARISON STUDY: No priors. TECHNIQUE: Unenhanced axial CT scan of the brain is performed from the vertex to the skull base. A do se lowering technique was utilized adhering to the principles of ALARA. FINDINGS: Brain parenchyma: There is minimal microangiopathic change. There is no hemorrhage, mass effect, or e vidence of acute territorial ischemia by CT criteria. Romeo-white matter differentiation is preserved. No extra-axial fluid collection is seen. Ventricles, sulci, cisterns: Normal in configuration. Intracranial vasculature: There is atherosclerotic calcification of the cavernous carotid arteries. Calvarium: There is no depressed calvarial fracture. Soft tissues: There is a frontal scalp hematoma. Sinuses and mastoids: There is trace mucosal thickening within the left maxillary antrum, the ethmoid sinuses, and the sphenoid sinuses. The mastoid air cells are well pneumatized. Orbits: The bony orbits are grossly intact. IMPRESSION: 1. There is no hemorrhage, mass effect, or evidence of acute territorial ischemia by CT criteria. 2. Frontal scalp hematoma. ACT 112: Negative or not required by law. Electronically signed by: Mars Santos M.D. 08/16/2021 9:12 AM
[2021-08-16 09:22] LABS: Albumin Globulin Ratio 0.9 (0.9-2); Alkaline Phosphatase 84 U/L (45-117); Bilirubin,Total 0.3 mg/dl (0.2-1); Globulin 4.5 gm/dl (2.5-4.0); Total Protein 8.5 gm/dl (6.4-8.2); Troponin I < 0.015 ng/ml (0-0.045)
--- NOTE | 2021-08-16 09:23 | CT Scan Report ---
CT OF THE CERVICAL SPINE CLINICAL HISTORY: neck pain, syncope, right arm tingling COMPARISON STUDY: No previous studies for comparison. CT DOSE: 933.90 mGy.cm TECHNIQUE: CT scan of the cervical spine was performed from the skull base to the thoracic inlet. Aliyah ges are reviewed in the axial, sagittal, and coronal planes. IV contrast was not administered for thi s examination. A dose lowering technique was utilized adhering to the principles of ALARA. FINDINGS: The visualized portions of the lung apices reveal no evidence of pneumothorax. The prevertebral soft tissues are normal. No fractures or subluxations are visualized. Normal cervical lordosis is preserved. Vertebral body heights are maintained. Multilevel intervertebr al disc space narrowing with osteophytes are seen. Few areas of posterior longitudinal ligament ossif ications are seen. Extension of ossified articles to the central canal is seen at the C5-C6 level and associated with it s narrowing. Also few other areas of central canal stenosis are seen at the C3-C4, C4-C5 levels. Bila teral neural foraminal stenosis is seen at the mid cervical level. IMPRESSION: 1. No acute fracture or traumatic malalignment. 2. Degenerative changes of the spine as detailed above. ACT 112: Negative or not required by law. The above report was generated using voice recognition software. It may contain grammatical, syntax o r spelling errors. Electronically signed by: Catalina Shabazz DO 08/16/2021 9:21 AM
[2021-08-16 09:50] LABS: D Dimer 350 ug/L FEU (0-500); Partial Thromboplastin Time 26.2 Seconds (21.0-31.0); Prothrombin Time 9.9 Seconds (9.0-12.0)
[2021-08-16] MEDS ORDERED: LORazepam 1 MG/2 ML VIAL IV STA (11:40)
[2021-08-16 11:59] LABS: Appearance Urine Clear (Clear); Bilirubin Urine Negative (Negative); Blood Urine Negative (Negative); Color Urine Yellow; Glucose Urine UA Negative (Negative); Ketones Urine Negative (Negative); Leukocyte Esterase Urine Negative (Negative); Nitrite Urine Negative (Negative); Protein Urine Negative (Negative); Specific Gravity Urine 1.007 (1.000-1.030); Urobilinogen Urine Negative (Negative); pH Urine 5.5 (4.5-7.5)
--- NOTE | 2021-08-16 13:22 | Magnetic Resonance Report ---
MR cervical spine wo con HISTORY: 65 years-old Male fall, right arm numbness, spinal stenosis on CT acute neck pain status po st fall COMPARISON: CT cervical spine of same day TECHNIQUE: Multiplanar multisequence MRI of the cervical spine was obtained without the use of IV con trast. FINDINGS: Motion degraded exam. Prevertebral edema measures up to 4-5 mm extending from C2-C3 to the C5 level. No definite disruption of the anterior longitudinal ligament identified. The imaged posterior fossa s tructures are unremarkable. Mild mucosal thickening of the maxillary sinuses. Signal within the brain stem, cervical and imaged thoracic spinal cord appears unremarkable. No acute fracture, subluxation o r bone marrow edema identified. C2-C3: Mild intervertebral disc space narrowing and spondylitic spurring with posterior annular disc bulge and mild to moderate facet arthrosis. Mild central canal stenosis, AP dimension of the thecal s ac measuring 8 mm. C3-C4: Mild intervertebral disc space narrowing with uncovertebral spurring, circumferential annular disc bulge with mild to moderate facet arthrosis. AP dimension of the thecal sac measures 7 mm. Mild to moderate central canal stenosis. Mild bilateral neural foraminal narrowing. C4-C5: Moderate intervertebral disc space narrowing with uncovertebral spurring and circumferential a nnular disc bulge with posterior disc osteophyte complex and mild to moderate facet arthrosis. There is moderate central canal stenosis, AP dimension of the thecal sac measuring 5 mm. Severe right with moderate to severe left neural foraminal stenosis. C5-C6: Moderate intervertebral disc space narrowing with uncovertebral spurring and circumferential a nnular disc bulge with posterior disc osteophyte complex and mild to moderate facet arthrosis. There is moderate central canal stenosis, AP dimension of the thecal sac measuring 6 mm. Moderate right wit h mild to moderate left neural foraminal narrowing. C6-C7: Mild intervertebral disc space narrowing with uncovertebral spurring and circumferential annul ar disc bulge with posterior disc osteophyte complex and mild to moderate facet arthrosis. There is m ild central canal stenosis with AP dimension of the thecal sac measuring approximately 8 mm. Moderate left with mild to moderate right neural foraminal narrowing. C7-T1: Small posterior annular disc bulge with mild to moderate facet arthrosis. Small right paracent ral disc protrusion. No central canal or neural foraminal narrowing. IMPRESSION: 1. Motion degraded exam. 2. Mild prevertebral edema extends from C2-C5, likely on a posttraumatic basis. This may reflect a mi ld ligamentous injury. No disruption of the anterior longitudinal ligament identified. 3. Multilevel discogenic degeneration and facet arthrosis as detailed above results in multilevel althea tral canal stenosis which is moderate at C4-C5 and C5-C6. 4. Multilevel neural foraminal narrowing as above, severe on the right and moderate to severe on the left at C4-C5. 5. Normal bone marrow signal without acute fracture or subluxation. ACT 112: Negative or not required by law. The above report was generated using voice recognition software. It may contain grammatical, syntax o r spelling errors. Electronically signed by: Quinn Atkinson M.D. 08/16/2021 1:20 PM
--- NOTE | 2021-08-16 13:40 | Communication Note ---
Date of Service: August 16, 2021 Telephone consultation completed for patient at request of Dr Caio Mojica MD, [facility] 65M with syncopal episode today with subsequent neck pain original right upper extremity numbness, now resolved neurologically intact upper and lower extremity as per ED provider CT cervical spine 08/16/21 no evidence of fracture or july interspace widening reported as " FINDINGS: The visualized portions of the lung apices reveal no evidence of pneumothorax. The prevertebral soft tissues are normal. No fractures or subluxations are visualized. Normal cervical lordosis is preserved. Vertebral body heights are maintained. Multilevel intervertebral disc space narrowing with osteophytes are seen. Few areas of posterior longitudinal ligament ossifications are seen. Extension of ossified articles to the central canal is seen at the C5-C6 level and associated with its narrowing. Also few other areas of central canal stenosis are seen at the C3-C4, C4-C5 levels. Bilateral neural foraminal stenosis is seen at the mid cervical level. IMPRESSION: 1. No acute fracture or traumatic malalignment. 2. Degenerative changes of the spine as detailed above. " MRI cervical spine 08/16/21 anterior paravertebral edema no areas of severe interspace STIR signal changes or PLL injuries evident reported as " FINDINGS: Motion degraded exam. Prevertebral edema measures up to 4-5 mm extending from C2-C3 to the C5 level. No definite disruption of the anterior longitudinal ligament identified. The imaged posterior fossa structures are unremarkable. Mild mucosal thickening of the maxillary sinuses. Signal within the brainstem, cervical and imaged thoracic spinal cord appears unremarkable. No acute fracture, subluxation or bone marrow edema identified. C2-C3: Mild intervertebral disc space narrowing and spondylitic spurring with posterior annular disc bulge and mild to moderate facet arthrosis. Mild central canal stenosis, AP dimension of the thecal sac measuring 8 mm. C3-C4: Mild intervertebral disc space narrowing with uncovertebral spurring, circumferential annular disc bulge with mild to moderate facet arthrosis. AP dimension of the thecal sac measures 7 mm. Mild to moderate central canal stenosis. Mild bilateral neural foraminal narrowing. C4-C5: Moderate intervertebral disc space narrowing with uncovertebral spurring and circumferential annular disc bulge with posterior disc osteophyte complex and mild to moderate facet arthrosis. There is moderate central canal stenosis, AP dimension of the thecal sac measuring 5 mm. Severe right with moderate to severe left neural foraminal stenosis. C5-C6: Moderate intervertebral disc space narrowing with uncovertebral spurring and circumferential annular disc bulge with posterior disc osteophyte complex and mild to moderate facet arthrosis. There is moderate central canal stenosis, AP dimension of the thecal sac measuring 6 mm. Moderate right with mild to moderate left neural foraminal narrowing. C6-C7: Mild intervertebral disc space narrowing with uncovertebral spurring and circumferential annular disc bulge with posterior disc osteophyte complex and mild to moderate facet arthrosis. There is mild central canal stenosis with AP dimension of the thecal sac measuring approximately 8 mm. Moderate left with mild to moderate right neural foraminal narrowing. C7-T1: Small posterior annular disc bulge with mild to moderate facet arthrosis. Small right paracentral disc protrusion. No central canal or neural foraminal narrowing. IMPRESSION: 1. Motion degraded exam. 2. Mild prevertebral edema extends from C2-C5, likely on a posttraumatic basis. This may reflect a mild ligamentous injury. No disruption of the anterior longitudinal ligament identified. 3. Multilevel discogenic degeneration and facet arthrosis as detailed above results in multilevel central canal stenosis which is moderate at C4-C5 and C5- C6. 4. Multilevel neural foraminal narrowing as above, severe on the right and moderate to severe on the left at C4-C5. 5. Normal bone marrow signal without acute fracture or subluxation. " Plan: - [place] rigid collar at all times - follow-up in clinic in 1-2 weeks; patient to call my office at [phone] to arrange - return to ER for urgent evaluation if any new neurological symptoms - workup for syncope as per ED/cardiology; communicated risk of neurological injury with any recurrents falls to ED provider Feroz Clemons MD Spine Surgeon [facility]
--- NOTE | 2021-08-16 15:19 | History & Physical Report ---
Date of Service August 16, 2021 Assessment & Plan (1) Syncope and collapse: Plan: Patient with history of 3 syncope episodes. 2 with LOC and collapse. 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 Clemons at ~2 weeks at discharge History of Present Illness Primary Care Provider: ROXANA Lynch 65 YOM with past medical history of: HTN, seasonal allergies. Patient comes into the EMD today for syncopal episode. The patient endorses that he got up this morning ate breakfast took his medications and left for work, he felt well and had no abnormal symptoms or feelings on his way to work, upon getting up out of his car he felt dizzy and "fuzzy" in his head and new an "episode" was coming. He grabbed on this car door and then woke up in the gravel parking lot. In the EMD the patient had MRI cervical spine, head CT CXR and Cervical spine CT scan. His MRI did reveal prevertebral edema from C2-C5 and with possible ligamentous injury the EMD provider did consult Ortho-spine who recommended hard aspen collar at all times, and follow up with him in ~ 2weeks time. The patient originally had some paraesthesias to his bilateral upper arms, which has now dissipated. The patient states he has had 3 of these "episodes"; 1 in April that occurred without eating and camping- which was precluded with him cranking the camper out (He did not lose consciousness at that time), 1 in June, where again he did not eat and stood up from sitting position after driving- fell hit his head on a screw requiring nuvia, and the episode today which resulted in him falling and hitting his face on gravel. The patient states that he just gets a fuzzy dizzy feeling in his head, this is not associated with any flashing lights, vision changes, vertiginousness symptoms, salivating, nausea or vomiting. He has not lost bowel or bladder during any of these episodes. He denies any chest pain or palpitations. He is on 3 agents for blood pressure control. Patient will be admitted for observation on telemetry, ECHO, cardiology consult for further evaluation. Patient COVID test is: Allergies Allergy/AdvReac Type Severity Reaction Status Date / Time No Known Allergies Allergy Unknown NONE Unverified 08/16/21 08:44 Home Medications Medication Instructions Recorded Confirmed Type hydrochlorothiazide 25 mg tablet 12.5 mg PO DAILY 07/17/21 08/16/21 History metoprolol succinate 100 mg 100 mg PO BID 07/17/21 08/16/21 History tablet,extended release 24 hr multivitamin 1 tab PO DAILY 07/17/21 08/16/21 History amlodipine 10 mg tablet 10 mg PO HS 08/16/21 08/16/21 History loratadine 10 mg tablet (Claritin) 10 mg PO DAILY 08/16/21 08/16/21 History Past Med/Surg History Medical History (Updated 08/16/21 @ 16:00 by Caio Mojica MD) Angioedema Hypertension Syncope and collapse Family History (Updated 08/16/21 @ 15:31 by ROXANA Baldwin) Father Stroke Mother Stroke Other Dyslipidemia Hypertension Social History Smoking Status: Never smoker Tobacco Type: Smokeless Tobacco (Dip or Chew) Second Hand Exposure: No; Do You Dip or Chew Tobacco: Yes; Hx Alcohol Use: No Hx Substance Use: No Preferred Language: Tunisian Feels Safe at Home: Yes Review of Systems Review of Systems: REVIEW OF SYSTEMS: Constitutional: No fever, sweats or chills Eyes: No diplopia, no worsening or blurred vision ENT: normal hearing, no trouble swallowing Respiratory: No cough, sputum, dyspnea at rest or on exertion Cardiovascular: No chest pain, tightness or palpitations Abdomen: No pain, nausea, vomiting, diarrhea or constipation Musculoskeletal: (+) neck pain, joint pain, calf pain, swelling Neurologic: No weakness, numbness/tingling, or balance problems Psychiatric: No anxiety or depression Skin: No rash or itch Physical Exam Physical Exam: PHYSICAL EXAM: General: awake, alert, no apparent distress Head: Normocephalic, atraumatic, scar well healed on scalp ENT: PERRL, EOMI, no pharyngeal exudate, mucous membranes moist Neuro: CERVICAL collar on, AAO x 3, speech clear and appropriate, strength intact bilaterally 5/5, sensation intact and equal all extremities and dermatomes, no pronator drift, no numbness tingling, Chest: equal rise and fall of the chest, no accessory muscle use, no heaves or thrills, Clear to auscultation, on room air, Cardiac: Regular rate and rhythm, telemetry reviewed- NSR no ectopy, skin warm dry, cap refill <3 seconds, peripheral pulses +2 no JVD, no murmur, no edema GI: NABS x 4 quadrants, soft, nontender to palpation, no rebound, guarding or tenderness : Spontaneously voiding, no pain, no CVA tenderness, Extremities: Normal inspection, no peripheral edema or erythema, calfs nontender to palpation Psych: Normal mood and affect Skin: superficial scrapes to face, scabbed over Results & Data Results & Data ([facility]) Vital Signs (Past 12 Hours) Vital Signs Temp Pulse Resp BP Pulse Ox 08/16/21 15:00 73 17 157/108 H 99 08/16/21 14:30 70 12 156/97 H 99 08/16/21 14:13 73 16 147/102 H 97 08/16/21 14:00 157/94 H 96 08/16/21 13:30 147/100 H 98 08/16/21 13:00 151/101 H 99 08/16/21 12:53 98 08/16/21 12:00 74 17 146/87 H 99 08/16/21 11:30 89 16 160/88 H 99 08/16/21 11:00 58 L 13 146/88 H 99 08/16/21 10:30 58 L 14 146/92 H 99 08/16/21 10:00 56 L 20 135/81 98 08/16/21 09:30 58 L 14 143/79 H 99 08/16/21 09:20 59 L 14 98 08/16/21 09:10 62 19 99 08/16/21 08:30 62 16 136/93 97 08/16/21 08:20 72 20 99 08/16/21 08:13 72 24 153/92 H 98 08/16/21 07:50 36.7 C 75 20 166/93 H 99 Laboratory Results Abnormal lab results 08/16/21 08/16/21 Range/Units 08:31 08:31 WBC 12.25 H (4.8-10.8) K/uL Neut # (Auto) 9.05 H (1.4-6.5) K/uL Nuckolls # (Auto) 1.12 H (0.11-0.59) K/uL Immature Gran # (Auto) 0.03 H (0.00-0.02) K/uL Glucose 105 H (70-99) mg/dl Magnesium 2.9 H (1.8-2.4) mg/dl Total Protein 8.5 H (6.4-8.2) gm/dl Globulin 4.5 H (2.5-4.0) gm/dl Diagnostic Findings Cervical Spine CT 08/16/21 08:20 CT OF THE CERVICAL SPINE CLINICAL HISTORY: neck pain, syncope, right arm tingling COMPARISON STUDY: No previous studies for comparison. CT DOSE: 933.90 mGy.cm TECHNIQUE: CT scan of the cervical spine was performed from the skull base to the thoracic inlet. Images are reviewed in the axial, sagittal, and coronal planes. IV contrast was not administered for this examination. A dose lowering technique was utilized adhering to the principles of ALARA. FINDINGS: The visualized portions of the lung apices reveal no evidence of pneumothorax. The prevertebral soft tissues are normal. No fractures or subluxations are visualized. Normal cervical lordosis is preserved. Vertebral body heights are maintained. Multilevel intervertebral disc space narrowing with osteophytes are seen. Few areas of posterior longitudinal ligament ossifications are seen. Extension of ossified articles to the central canal is seen at the C5-C6 level and associated with its narrowing. Also few other areas of central canal stenosis are seen at the C3-C4, C4-C5 levels. Bilateral neural foraminal stenosis is seen at the mid cervical level. IMPRESSION: 1. No acute fracture or traumatic malalignment. 2. Degenerative changes of the spine as detailed above. ACT 112: Negative or not required by law. The above report was generated using voice recognition software. It may contain grammatical, syntax or spelling errors. Electronically signed by: Catalina Shabazz DO 08/16/2021 9:21 AM Chest X-Ray 08/16/21 08:20 XR chest 1V portable CLINICAL HISTORY: syncope COMPARISON STUDY: July 02, 2017 FINDINGS: No pneumothorax. No pleural effusion. No large infiltrates or consolidative lesions are seen. Lung volumes are decreased with crowded lung markings. Cardiomediastinal silhouette is within normal limits in size. No significant pulmonary vascular congestion.. Osseous structures: Degenerative changes of the spine. IMPRESSION: 1. No acute pulmonary process. ACT 112: Negative or not required by law. The above report was generated using voice recognition software. It may contain grammatical, syntax or spelling errors. Electronically signed by: Catalina Shabazz DO 08/16/2021 9:[address] 08/16/21 08:20 CT SCAN OF THE BRAIN WITHOUT IV CONTRAST CLINICAL HISTORY: Syncope. COMPARISON STUDY: No priors. TECHNIQUE: Unenhanced axial CT scan of the brain is performed from the vertex to the skull base. A dose lowering technique was utilized adhering to the principles of ALARA. FINDINGS: Brain parenchyma: There is minimal microangiopathic change. There is no hemorrhage, mass effect, or evidence of acute territorial ischemia by CT criteria. Romeo-white matter differentiation is preserved. No extra-axial fluid collection is seen. Ventricles, sulci, cisterns: Normal in configuration. Intracranial vasculature: There is atherosclerotic calcification of the cavernous carotid arteries. Calvarium: There is no depressed calvarial fracture. Soft tissues: There is a frontal scalp hematoma. Sinuses and mastoids: There is trace mucosal thickening within the left maxillary antrum, the ethmoid sinuses, and the sphenoid sinuses. The mastoid air cells are well pneumatized. Orbits: The bony orbits are grossly intact. IMPRESSION: 1. There is no hemorrhage, mass effect, or evidence of acute territorial ischemia by CT criteria. 2. Frontal scalp hematoma. ACT 112: Negative or not required by law. Electronically signed by: Mars Santos M.D. 08/16/2021 9:12 AM Cervical Spine MRI 08/16/21 10:44 MR cervical spine wo con HISTORY: 65 years-old Male fall, right arm numbness, spinal stenosis on CT acute neck pain status post fall COMPARISON: CT cervical spine of same day TECHNIQUE: Multiplanar multisequence MRI of the cervical spine was obtained without the use of IV contrast. FINDINGS: Motion degraded exam. Prevertebral edema measures up to 4-5 mm extending from C2-C3 to the C5 level. No definite disruption of the anterior longitudinal ligament identified. The imaged posterior fossa structures are unremarkable. Mild mucosal thickening of the maxillary sinuses. Signal within the brainstem, cervical and imaged thoracic spinal cord appears unremarkable. No acute fracture, subluxation or bone marrow edema identified. C2-C3: Mild intervertebral disc space narrowing and spondylitic spurring with posterior annular disc bulge and mild to moderate facet arthrosis. Mild central canal stenosis, AP dimension of the thecal sac measuring 8 mm. C3-C4: Mild intervertebral disc space narrowing with uncovertebral spurring, circumferential annular disc bulge with mild to moderate facet arthrosis. AP dimension of the thecal sac measures 7 mm. Mild to moderate central canal stenosis. Mild bilateral neural foraminal narrowing. C4-C5: Moderate intervertebral disc space narrowing with uncovertebral spurring and circumferential annular disc bulge with posterior disc osteophyte complex and mild to moderate facet arthrosis. There is moderate central canal stenosis, AP dimension of the thecal sac measuring 5 mm. Severe right with moderate to severe left neural foraminal stenosis. C5-C6: Moderate intervertebral disc space narrowing with uncovertebral spurring and circumferential annular disc bulge with posterior disc osteophyte complex and mild to moderate facet arthrosis. There is moderate central canal stenosis, AP dimension of the thecal sac measuring 6 mm. Moderate right with mild to moderate left neural foraminal narrowing. C6-C7: Mild intervertebral disc space narrowing with uncovertebral spurring and circumferential annular disc bulge with posterior disc osteophyte complex and mild to moderate facet arthrosis. There is mild central canal stenosis with AP dimension of the thecal sac measuring approximately 8 mm. Moderate left with mild to moderate right neural foraminal narrowing. C7-T1: Small posterior annular disc bulge with mild to moderate facet arthrosis. Small right paracentral disc protrusion. No central canal or neural foraminal narrowing. IMPRESSION: 1. Motion degraded exam. 2. Mild prevertebral edema extends from C2-C5, likely on a posttraumatic basis. This may reflect a mild ligamentous injury. No disruption of the anterior longitudinal ligament identified. 3. Multilevel discogenic degeneration and facet arthrosis as detailed above results in multilevel central canal stenosis which is moderate at C4-C5 and C5- C6. 4. Multilevel neural foraminal narrowing as above, severe on the right and moderate to severe on the left at C4-C5. 5. Normal bone marrow signal without acute fracture or subluxation. ACT 112: Negative or not required by law. The above report was generated using voice recognition software. It may contain grammatical, syntax or spelling errors. Electronically signed by: Quinn Atkinson M.D. 08/16/2021 1:20 PM Medications Administered Home Medications hydrochlorothiazide 25 mg tablet 12.5 mg PO DAILY 07/17/21 [History Confirmed 08/16/21] metoprolol succinate 100 mg tablet,extended release 24 hr 100 mg PO BID 07/17/21 [History Confirmed 08/16/21] multivitamin 1 tab PO DAILY 07/17/21 [History Confirmed 08/16/21] amlodipine 10 mg tablet 10 mg PO HS 08/16/21 [History Confirmed 08/16/21] loratadine 10 mg tablet (Claritin) 10 mg PO DAILY 08/16/21 [History Confirmed 08/16/21] Discontinued Medications Sodium Chloride (Nss) 500 mls @ 999 mls/hr IV .Q31M JULIA Stop: 08/16/21 09:00 Last Infusion: 08/16/21 10:43 Dose: 0 mls/hr Documented by: [id number] Admin: 08/16/21 08:37 Dose: 999 mls/hr Documented by: [id number] Lorazepam (Ativan) 1 mg in 2 mls @ 2 mls/min IV NOW STA Stop: 08/16/21 11:41 Last Admin: 08/16/21 12:03 Dose: 2 mls/min Documented by: [id number] ECG Additional Comments: Normal sinus rhythm Left bundle branch block Abnormal ECG When compared with ECG of 04-JUL-2017 07:11, No significant change was found Code Status & VTE Plan Code Status CODE: FULL VTE: SCDs, Heparin 5000 units sub q q12 VTE Prophylaxis Plan VTE Prophylaxis will be ordered: Yes Supervising Physician Co-Signing Physician Notes Patient was seen and examined independently I discussed the case with Roberto SCHMIDT I reviewed pertinent past medical social family history and also the plan of care and agree with the plan of care. This is a third syncopal event with some injury this patient's had. Patient did sustain significant abrasions to his nose and forehead with this most recent syncopal event. He denies significant warning symptoms but does feel a fuzzy dizzy feeling preceding these things not necessarily described as vertigo. Because of the injury that has been sustained patient be observed for telemetry monitoring and cardiology consultation. Examination other than the abrasions to his head and him wearing a rigid cervical collar is unremarkable. He says his neck does feel better with the cervical collar in place. This patient will need outpatient follow-up with ortho spine Any exceptions will be noted below PG Care Time/CCT Total # of Minutes Spent Total Time Spent with Patient: Total time spent is greater than 50% in coordination of care (as documented) at patient's floor/unit and/or counseling patient: Coding Level of Care Code 07860 Initial Inpt Care Lvl 3 Diagnoses Syncope and collapse R55 Hypertension I10 LBBB (left bundle branch block) I44.7 Cervical strain S16.1XXA
[2021-08-16] MEDS ORDERED: ACETAMINOPHEN 325 MG TAB PO PRN ×2 (15:40→20:04)
--- NOTE | 2021-08-16 16:58 | Electrocardiogram Report ---
Test Reason : Blood Pressure : / mmHG Vent. Rate : 068 BPM Atrial Rate : 068 BPM P-R Int : 154 ms QRS Dur : 124 ms QT Int : 418 ms P-R-T Axes : 059 005 063 degrees QTc Int : 444 ms Normal sinus rhythm Left bundle branch block Abnormal ECG When compared with ECG of 04-JUL-2017 07:11, No significant change was found Confirmed by Deacon Braga ([id number]) on 08/16/2021 4:57:51 PM Referred By: SELF Confirmed By:Deacon Braga
[2021-08-16] MEDS ORDERED: ONDANSETRON INJ 2 MG/ML 2 ML VIAL IV PRN (20:04)
[2021-08-16] MEDS ORDERED: oxyCODONE HCL IR 5 MG TAB (IMMEDIATE RELEASE) PO PRN (20:04)
[2021-08-16] MEDS: amLODIPine BESYLATE 5 MG TAB PO SCH (21:07)
[2021-08-16] MEDS: METOPROLOL SUCC 50MG EXT REL TAB PO SCH (21:07)
[2021-08-16] MEDS: BACITRACIN OINT 15 GM TUBE EXT SCH (21:07)
[2021-08-16] MEDS: HEPARIN SOD 5,000 UNIT/0.5 ML VIAL SQ SCH (21:07)
[2021-08-17 06:05] LABS: Basophils # (auto) 0.03 K/uL (0-0.2); Basophils % (auto) 0.3 %; Eosinophils # (auto) 0.18 K/uL (0-0.5); Eosinophils % (auto) 1.7 %; Hematocrit (blood only) 42.5 % (42-52); Hemoglobin 14.5 g/dL (14.0-18.0); Immature Granulocytes # (auto) 0.02 K/uL (0.00-0.02); Immature Granulocytes % (auto) 0.2 %; Lymphocytes # (auto) 1.62 K/uL (1.2-3.4); Lymphocytes % (auto) 15.4 %; Mean Corpuscular Hemoglobin 32.1 pg (25-34); Mean Corpuscular Hgb Conc 34.1 g/dL (32-36); Mean Platelet Volume 10.5 fL (7.4-10.4); Monocytes # (auto) 1.18 K/uL (0.11-0.59); Monocytes % (auto) 11.2 %; Neutrophils # (auto) 7.51 K/uL (1.4-6.5); Neutrophils % (auto) 71.2 %; Platelet Count 284 K/uL (130-400); RDW Coefficient of Variation 12.6 % (11.5-14.5); RDW Standard Deviation 43.1 fL (36.4-46.3); Red Blood Count 4.52 M/uL (4.7-6.1); White Blood Count 10.54 K/uL (4.8-10.8)
[2021-08-17 06:52] LABS: BUN Creatinine Ratio 11.7 (10-20); Calcium 8.8 mg/dl (8.5-10.1); Creatinine Clr Calc Pharmacy 76.7 ml/min; Est GFR (African American) 87.1 ml/min; Est GFR (Non-African American) 75.2 ml/min; Magnesium 2.4 mg/dl (1.8-2.4); Potassium 3.7 mmol/L (3.5-5.1)
--- NOTE | 2021-08-17 08:23 | Electrocardiogram Report ---
Test Reason : Blood Pressure : / mmHG Vent. Rate : 067 BPM Atrial Rate : 067 BPM P-R Int : 150 ms QRS Dur : 124 ms QT Int : 442 ms P-R-T Axes : 119 167 106 degrees QTc Int : 467 ms Suspect arm lead reversal, interpretation assumes no reversal Normal sinus rhythm Left bundle branch block Abnormal ECG When compared with ECG of 16-AUG-2021 08:17, Arm lead reversal suspected, repeat tracing recommended Confirmed by Deacon Braga ([id number]) on 08/17/2021 8:23:01 AM Referred By: REFERRED SELF Confirmed By:Deacon Braga
[2021-08-17] MEDS: METOPROLOL SUCC 50MG EXT REL TAB PO SCH ×2 (09:15→21:17)
[2021-08-17] MEDS: LORATADINE 10 MG TAB PO SCH (09:15)
[2021-08-17] MEDS: BACITRACIN OINT 15 GM TUBE EXT SCH ×2 (09:15→21:16)
[2021-08-17] MEDS: HEPARIN SOD 5,000 UNIT/0.5 ML VIAL SQ SCH ×2 (09:15→21:17)
--- NOTE | 2021-08-17 17:27 | Cardiology Consultation ---
Date of Consultation August 17, 2021 Assessment & Plan (1) Syncope and collapse: Etiology uncertain, each of the episodes had a short prodrome and occurred after assuming an upright position, suggesting vasovagal or orthostatic etiology. However, he has evidence of conduction system disease on ECG with left bundle branch block and had sufficiently rapid loss of consciousness that 2 of his episodes resulted in traumatic syncope. Overnight telemetry appears benign. Will obtain electrophysiology input tomorrow. Considerations include preemptive pacemaker placement given recurrent traumatic syncope versus implantable loop recorder to monitor for future episodes versus medical management verus allowing permissive hypertension to reduce likelihood of orthostatic syncope. (2) Hypertension: Amlodipine and metoprolol restarted, hydrochlorothiazide held. Depending upon the degree of hypertension exhibited overnight, would consider reducing either/both of these medications doses as well to diminish chance of orthostatic syncope. (3) LBBB (left bundle branch block): Chronic, noted in 2016. Echocardiogram at that time showed normal left ventricular systolic function with evidence of diastolic dysfunction but no significant valvular disease. (4) Cervical strain: Secondary to syncope. (5) Lab test positive for detection of COVID-19 virus: Possible carrier status, no infectious symptoms. Does not seem to be playing a role in his current syncope but may complicate management (? Delay placement of any devices). History of Present Illness Reason for Consultation: Syncope with collapse Requesting Physician: Kirit Painting Attending Physician: Kirit Painting History of Present Illness 65-year-old man with history of hypertension (on amlodipine/HCTZ/metoprolol) who is admitted after presenting with his third episode of syncope in the past 3 months, 2 of which were traumatic. First episode was actually presyncope and occurred in April on a hot day when he had not eaten, he felt very lightheaded upon standing up. Second episode in June, also after not eating, when he stood up abruptly to get out of car after driving, he lost consciousness and sustained head laceration requiring nuvia. Third episode today again occurred when getting out of his car, he noted "fuzzi ness" in his head and lost consciousness in the parking lot. He sustained forehead abrasions and cervical spine ligamentous injury requiring that he wear a hard cervical collar. He noted no chest pain, palpitations, or dyspnea at any time. No focal neurologic symptoms. No bowel or bladder incontinence. Between episodes, he feels fine. At the time of my evaluation this afternoon, he was comfortable and had no complaints. Telemetry monitoring showed only sinus rhythm at rates of 70 to 80 bpm with no significant ectopy or dysrhythmias. No bradycardia or pauses. Allergies Allergy/AdvReac Type Severity Reaction Status Date / Time No Known Allergies Allergy Unknown NONE Unverified 08/16/21 08:44 Home Medications Medication Instructions Recorded Confirmed Type hydrochlorothiazide 25 mg tablet 12.5 mg PO DAILY 07/17/21 08/16/21 History metoprolol succinate 100 mg 100 mg PO BID 07/17/21 08/16/21 History tablet,extended release 24 hr multivitamin 1 tab PO DAILY 07/17/21 08/16/21 History amlodipine 10 mg tablet 10 mg PO HS 08/16/21 08/16/21 History loratadine 10 mg tablet (Claritin) 10 mg PO DAILY 08/16/21 08/16/21 History Patient History Medical History Angioedema Hypertension Syncope and collapse Family History Father Stroke Mother Stroke Other Dyslipidemia Hypertension Social History Smoking Status: Never smoker Tobacco Type: Smokeless Tobacco (Dip or Chew) Second Hand Exposure: No; Hx Alcohol Use: Yes Alcohol type: beer Hx Substance Use: No Preferred Language: Upper Sorbian Communication Ability: Effective Spot Facer Required: No Beliefs That Will Affect Care: None Current Living Situation: Spouse Feels Safe at Home: Yes Assistive Devices: None Physical Exam Physical Exam: Adult white male with stigmata of recent trauma (forehead abrasions, cervical collar) who was in no distress. Afebrile. Normotensive to mildly hypertensive. Pulse 74 bpm and regular. Skin: Forehead abrasions, no generalized lesions. HEENT: unremarkable. Neck: Jugular venous pulse normal, no carotid bruits. Lungs: clear. Cardiac: regular rhythm, no murmur or gallop. Abdomen: benign. Extremities: no edema, pulses intact. Neurologic: normal affect and conversation, nonfocal. Results & Data ([place]) Vital Signs (Past 12 Hours) Vital Signs Temp Pulse Pulse Resp BP Pulse Ox 08/17/21 16:07 98.1 F 74 18 143/84 H 96 08/17/21 12:06 97.9 F 72 20 124/79 99 08/17/21 09:32 71 08/17/21 08:05 98.2 F 74 18 122/77 97 Laboratory Results Troponin negative. Normal CBC. Normal electrolytes, BUN 12, creatinine 1.05. Diagnostic Findings ECG on admission showed sinus rhythm with left bundle branch block. ECG today was similar but showed probable arm lead reversal. Chest x-ray unremarkable. Head CT with frontal scalp hematoma. Neck MRI with prevertebral edema C2-C5.
[2021-08-17] MEDS ORDERED: BEER 1 CAN PO SCH (18:30)
[2021-08-17] MEDS: amLODIPine BESYLATE 5 MG TAB PO SCH (21:16)
--- NOTE | 2021-08-17 21:48 | Hospitalist Progress Note ---
Date of Service August 17, 2021 Assessment & Plan (1) Syncope and collapse: Plan: Patient with history of 3 syncope episodes. 2 with LOC and collapse. 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 stopped diuretic, will allow slightly higher bp ORTHOSTASIS, may be playing a role. (2) Hypertension: Plan: Hold HCTZ Continue Metoprolol 100mg PO BID Continue Amlodipine 10mg Qhs (3) LBBB (left bundle branch block): Plan: No change from previous ECG 2019 - ECHO as above (4) Cervical strain: Plan: Appreciate Ortho-spine evaluation - continue with Rigid cervical collar continuous - follow up with Dr. Clemons at ~2 weeks at discharge Admission and Anticipated Discharge Date Admission Date: August 16, 2021 Subjective Patient reports feeling well. He states he only passes out when he stands up. Patient reports he drinks daily but is not interested in beer at the moment, eventhough it is offered. Review of Systems Review of Systems: All systems reviewed & are unremarkable except as noted in HPI & below Physical Exam Physical Exam: General: awake, alert, no apparent distress Head: Normocephalic, atraumatic, scar well healed on scalp ENT: PERRL, EOMI, no pharyngeal exudate, mucous membranes moist Neuro: CERVICAL collar on, AAO x 3, speech clear and appropriate, strength intact bilaterally 5/5, sensation intact and equal all extremities and dermatomes, no pronator drift, no numbness tingling, Chest: equal rise and fall of the chest, no accessory muscle use, no heaves or thrills, Clear to auscultation, on room air, Cardiac: Regular rate and rhythm, telemetry reviewed- NSR no ectopy, skin warm dry, cap refill <3 seconds, peripheral pulses +2 no JVD, no murmur, no edema GI: NABS x 4 quadrants, soft, nontender to palpation, no rebound, guarding or tenderness : Spontaneously voiding, no pain, no CVA tenderness, Extremities: Normal inspection, no peripheral edema or erythema, calfs nontender to palpation Psych: Normal mood and affect Skin: superficial scrapes to face, scabbed over Results & Data Results & Data ([facility]) Vital Signs (Past 12 Hours) Vital Signs Temp Pulse Pulse Resp BP Pulse Ox 08/17/21 19:25 36.6 C 70 18 136/83 98 08/17/21 16:07 36.7 C 74 18 143/84 H 96 08/17/21 14:30 73 08/17/21 12:06 36.6 C 72 20 124/79 99 PG Care Time/CCT Total # of Minutes Spent Total Time Spent with Patient: Total time spent is greater than 50% in coordination of care (as documented) at patient's floor/unit and/or counseling patient: Coding Level of Care Code 55236 Subseq Hosp Care Lvl 2 Diagnoses Syncope and collapse R55 Hypertension I10 LBBB (left bundle branch block) I44.7 Cervical strain S16.1XXA
[2021-08-18 07:26] LABS: Basophils # (auto) 0.04 K/uL (0-0.2); Basophils % (auto) 0.5 %; Eosinophils # (auto) 0.19 K/uL (0-0.5); Eosinophils % (auto) 2.3 %; Hematocrit (blood only) 42.7 % (42-52); Hemoglobin 14.3 g/dL (14.0-18.0); Immature Granulocytes # (auto) 0.01 K/uL (0.00-0.02); Immature Granulocytes % (auto) 0.1 %; Lymphocytes % (auto) 21.7 %; Mean Corpuscular Hemoglobin 32.6 pg (25-34); Mean Corpuscular Hgb Conc 33.5 g/dL (32-36); Mean Corpuscular Volume 97.3 fL (80-100); Mean Platelet Volume 10.7 fL (7.4-10.4); Monocytes # (auto) 0.75 K/uL (0.11-0.59); Neutrophils # (auto) 5.51 K/uL (1.4-6.5); Neutrophils % (auto) 66.4 %; Platelet Count 277 K/uL (130-400); RDW Coefficient of Variation 12.6 % (11.5-14.5); RDW Standard Deviation 44.5 fL (36.4-46.3); Red Blood Count 4.39 M/uL (4.7-6.1)
[2021-08-18 07:53] LABS: BUN Creatinine Ratio 13.5 (10-20); Calcium 8.6 mg/dl (8.5-10.1); Creatinine Clr Calc Pharmacy 73.2 ml/min; Est GFR (African American) 82.4 ml/min; Est GFR (Non-African American) 71.1 ml/min; Magnesium 2.5 mg/dl (1.8-2.4)
[2021-08-18 08:56] VITALS: TEMP 97.9
[2021-08-18] MEDS: BACITRACIN OINT 15 GM TUBE EXT SCH (09:37)
[2021-08-18] MEDS: LORATADINE 10 MG TAB PO SCH (09:38)
[2021-08-18] MEDS: HEPARIN SOD 5,000 UNIT/0.5 ML VIAL SQ SCH (09:38)
[2021-08-18] MEDS: METOPROLOL SUCC 50MG EXT REL TAB PO SCH (09:38)
--- NOTE | 2021-08-18 10:29 | Electrocardiogram Report ---
Test Reason : Blood Pressure : / mmHG Vent. Rate : 061 BPM Atrial Rate : 061 BPM P-R Int : 160 ms QRS Dur : 126 ms QT Int : 452 ms P-R-T Axes : 069 011 073 degrees QTc Int : 455 ms Normal sinus rhythm Left bundle branch block Abnormal ECG When compared with ECG of 17-AUG-2021 05:39, Arm lead reversal corrected Otherwise no significant change Confirmed by Deacon Braga ([id number]) on 08/18/2021 10:28:26 AM Referred By: REFERRED SELF Confirmed By:Deacon Braga
[2021-08-18 11:35] VITALS: O2SAT 99
[2021-08-18 16:20] VITALS: BP 154/83; PULSE 69
--- NOTE | 2021-08-19 07:23 | Discharge Summary ---
Date of Service August 18, 2021 Admission HPI Per Admitting Provider 65 YOM with past medical history of: HTN, seasonal allergies. Patient comes into the EMD today for syncopal episode. The patient endorses that he got up this morning ate breakfast took his medications and left for work, he felt well and had no abnormal symptoms or feelings on his way to work, upon getting up out of his car he felt dizzy and "fuzzy" in his head and new an "episode" was coming. He grabbed on this car door and then woke up in the gravel parking lot. In the EMD the patient had MRI cervical spine, head CT CXR and Cervical spine CT scan. His MRI did reveal prevertebral edema from C2-C5 and with possible ligamentous injury the EMD provider did consult Ortho-spine who recommended hard aspen collar at all times, and follow up with him in ~ 2weeks time. The patient originally had some paraesthesias to his bilateral upper arms, which has now dissipated. The patient states he has had 3 of these "episodes"; 1 in April that occurred without eating and camping- which was precluded with him cranking the camper out (He did not lose consciousness at that time), 1 in June, where again he did not eat and stood up from sitting position after driving- fell hit his head on a screw requiring nuvia, and the episode today which resulted in him falling and hitting his face on gravel. The patient states that he just gets a fuzzy dizzy feeling in his head, this is not associated with any flashing lights, vision changes, vertiginousness symptoms, salivating, nausea or vomiting. He has not lost bowel or bladder during any of these episodes. He denies any chest pain or palpitations. He is on 3 agents for blood pressure control. Patient will be admitted for observation on telemetry, ECHO, cardiology consult for further evaluation. Patient COVID test is: Principal Diagnosis syncope Discharge Exam General: awake, alert, no apparent distress Head: Normocephalic, atraumatic, scar well healed on scalp ENT: PERRL, EOMI, no pharyngeal exudate, mucous membranes moist Neuro: CERVICAL collar on, AAO x 3, speech clear and appropriate, strength intact bilaterally 5/5, sensation intact and equal all extremities and dermatomes, no pronator drift, no numbness tingling, Chest: equal rise and fall of the chest, no accessory muscle use, no heaves or thrills, Clear to auscultation, on room air, Cardiac: Regular rate and rhythm, telemetry reviewed- NSR no ectopy, skin warm dry, cap refill <3 seconds, peripheral pulses +2 no JVD, no murmur, no edema GI: NABS x 4 quadrants, soft, nontender to palpation, no rebound, guarding or tenderness : Spontaneously voiding, no pain, no CVA tenderness, Extremities: Normal inspection, no peripheral edema or erythema, calfs nontender to palpation Psych: Normal mood and affect Skin: superficial scrapes to face, scabbed over Discharge Data Allergies Allergy/AdvReac Type Severity Reaction Status Date / Time No Known Allergies Allergy Unknown NONE Unverified 08/16/21 08:44 Consultations 08/16/21 14:24 ED Decision to Admit Stat 08/16/21 20:04 Consult Cardiology Routine Ordered Studies 08/16/21 08:20 CT cervical spine wo con Stat CT head/brain wo con Stat 08/16/21 10:44 MR cervical spine wo con Stat Hospital Course (1) Syncope and collapse: Patient with history of 3 syncope episodes. 2 with LOC and collapse. 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 stopped diuretic, will allow slightly higher bp ORTHOSTASIS, may be playing a role.Patient will be discharged. Will followup with cardio as an outpatient. (2) Hypertension: Hold HCTZ Continue Metoprolol 100mg PO BID Continue Amlodipine 10mg Qhs (3) LBBB (left bundle branch block): No change from previous ECG 2019 - ECHO as above (4) Cervical strain: Appreciate Ortho-spine evaluation - continue with Rigid cervical collar continuous - follow up with Dr. Clemons at ~2 weeks at discharge Total Time Total Time Spent Total Time Spent (In Minutes): 32 Discharge Plan Discharge Items Patient Disposition: Home - Self-Care Reason For Visit: SYNCOPE WITH COLLAPSE Discharge Diagnosis: syncope with collapse Activity: Resume your previous activity Non-emergency contact: Primary Care Provider Call non-emergency contact if: you have any medication questions Follow-up/Referrals: Feroz Clemons MD [Physician] - 08/30/21 11:00 am Miya Chou CRNP [Primary Care Provider] - Diet: Regular Addtl Attending Provider Instructions: You have been hospitalized for an acute medical problem. During your stay at [facility], we have made an effort to correct the problem that brought you to the hospital while keeping you as comfortable as possible. Medications were used to bring your condition under control and your discharge instructions will include directions for any medications you should take after leaving the hospital. Please make sure you see your Primary Care Provider as part of your follow up plan. Pending Studies at Discharge: No Stand-Alone Forms: My [facility], Smoking Cessation Medications and DC Order Prescriptions: Continued metoprolol succinate 100 mg tablet extended release 24 hr 100 mg PO BID RF: 0 multivitamin Tablet 1 tab PO DAILY RF: 0 amlodipine 10 mg Tablet 10 mg PO HS RF: 0 loratadine [Claritin] 10 mg Tablet 10 mg PO DAILY RF: 0 Discontinued hydrochlorothiazide 25 mg tablet 12.5 mg PO DAILY RF: 0 Discharge Orders: Discharge Order (Routine); Ordered 08/18/21 Ordered By: Kirit Painting Admission Data Admit Date/Time: 08/16/21 15:09 Attending Provider: Kirit Painting Admit Provider: Owen Deal Primary Care Provider: Miya Chou Other Providers: Owen Deal ; Enio Yousif ; Deacon Braga ; Lorenzo Gomez ; Wai Rosado ; Jesse Parsons Jr ; Chato Walsh ; Liset Danielle ; Caren Irene ; Sudarshan Prado ; Sudarshan Dennison ; Josef Loving ; Aysha Mar ; Damian Lopez ; Michael Resendiz ; Navarro Jordan Other Interventions: Discharge Summary Assessment (RN) Last Done: 08/18/21 17:39 Coding Level of Care Code D/C DAY MANAGEMENT >30 MINS Diagnoses Syncope and collapse R55 Hypertension I10 LBBB (left bundle branch block) I44.7 Cervical strain S16.1XXA
--- NOTE | 2021-08-25 09:23 | Coding Query ---
CODING QUERY To promote full compliance with coding requirements relating to patient care, provider participation is requested in all cases of apple packing header uncertainty. Please assist us with the question(s) below: Coding Question(s): Syncope is documented with documentation on the Discharge Summary of, "Cause of fall is likely orthostasis, Cardio considering pacemaker. stopped diuretic, will allow slightly higher bp ORTHOSTASIS, may be playing a role.Patient will be discharged. Will followup with cardio as an outpatient", and Cardiology Consultation documents, "Syncope and collapse: Etiology uncertain, each of the episodes had a short prodrome and occurred after assuming an upright position, suggesting vasovagal or orthostatic etiology. However, he has evidence of conduction system disease on ECG with left bundle branch block and had sufficiently rapid loss of consciousness that 2 of his episodes resulted in traumatic syncope. Overnight telemetry appears benign". Please specify below, in your clinical opinion, regarding the most likely cause of Syncope. ( ) Syncope likely due to unknown/unspecified cause ( X) Syncope likely due to Orthostasis. Please specify below, the meaning of Orthostasis. ( X) Orthostasis means Orthostatic Hypotension ( ) Orthostasis means Other: Please Specify ( ) Syncope likely due to left bundle branch block ( ) Syncope likely due to Other: Please Specify Physician's Response(s): Thank you Dionna Lorenzo Principal Diagnosis: "that condition established after study, to be chiefly responsible for occasioning the admission of the patient to the hospital for care." Co-Existing Principal Diagnosis: "when two or more diagnoses equally meet the criteria for principal diagnosis as determined by the circumstances of admission, diagnostic work up, and/or therapy provided, and the Alphabetic Index, Tabular List, or another coding guideline does not provide sequencing direction, any one of the diagnoses may be sequenced first." "When the physician has documented what appears to be a current diagnosis in the body of the record, but has not included the diagnosis in the final diagnostic statement, the physician should be asked whether the diagnosis should be added." (Source Coding Clinic 2 QTR90. p3-4) RALPH
== END 2021-08-18 18:08 | disposition home or self-care (01) | DRG 312 ==
LOC: ED 07:45 → SUATTDRO 15:09 → 2S 15:09
DX: F17.220 Nicotine dependence, chewing tobacco, uncomplicated; Y99.8 Other external cause status; Z79.899 Other long term (current) drug therapy; I10 Essential (primary) hypertension; S16.1XXA Strain of muscle, fascia and tendon at neck level, initial encounter; U07.1 COVID-19; S09.90XA Unspecified injury of head, initial encounter; I95.1 Orthostatic hypotension; D72.829 Elevated white blood cell count, unspecified; I44.7 Left bundle-branch block, unspecified; J30.2 Other seasonal allergic rhinitis; W18.39XA Other fall on same level, initial encounter; Z82.49 Family history of ischemic heart disease and other diseases of the circulatory system; R20.2 Paresthesia of skin; Y92.481 Parking lot as the place of occurrence of the external cause; F40.240 Claustrophobia

== ENCOUNTER 2021-09-22 20:33 | Inpatient (IN) ==
--- NOTE | 2021-09-22 20:53 | Emergency Department Note ---
Impression & Plan Syncope and collapse ED Provider Note NAME: ANTONY SAMUEL AGE: 65 SEX: M : 1955 ARRIVES VIA: Walk-In INFORMANT: Patient, ED PROVIDER(S): Lorenzo Krause DO CHIEF COMPLAINT: Syncope HPI: The patient is a 65-year-old male who has a history of a left bundle branch block who presented to the emergency department after having a syncopal episode. 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 He was set up with a monitor. He had a syncopal episode earlier this evening but then received a phone call from cardiology stating that he had a 12-second pause which likely caused the syncopal episode. He is scheduled for an evaluation for a pacemaker next week but likely will require pacemaker so he was sent to the emergency department for further evaluation and for possible admission. The patient himself describes no chest pain. He denies having any shortness of breath or headache. He states he had a syncopal episode while he was in his bed and fell backwards into the bed. He did not have any injury. His family doctor set him up with cardiology. At this time he states he feels back to normal. He has had no recent changes to his medications. He has had no recent diarrheal illnesses or vomiting. He said no fever or exposure to COVID-19 as far as he knows. ROS: See above HPI for pertinent positives & negatives. A total of 10 systems reviewed and were otherwise negative. PAST MEDICAL HISTORY: See Below PAST SURGICAL HISTORY: See Below FAMILY HISTORY: See Below SOCIAL HISTORY: See Below HOME MEDICATIONS: See Below ALLERGIES: See Below VITALS: See Below PHYSICAL EXAMINATION: GENERAL: Patient is awake alert in no acute distress patient is resting comfortably and showing no signs of anxiety EYES: The conjunctivae are clear. The pupils are round and reactive. EARS, NOSE, MOUTH AND THROAT: The nose is without any evidence of any deformity. NECK: The neck is nontender and supple. RESPIRATORY: Normal respiratory effort is noted there is no evidence of wheezing rhonchi or rales CARDIOVASCULAR: Regular rate and rhythm noted there no murmurs rubs or gallops normal S1 normal S2. GASTROINTESTINAL: The abdomen is soft. Abdomen is nontender. MUSCULOSKELETAL/EXTREMITIES: There is no evidence of gross deformity full range of motion is noted in the hips and shoulders. SKIN: There is no obvious evidence of any rash. There are no petechiae, pallor or cyanosis noted. NEUROLOGIC: Patient is awake alert and oriented x3. MEDICAL DECISION MAKING: The patient is a 65-year-old male who presented to the emergency department at the request of his primary cardiology group for an evaluation of syncope. The patient has a vehicle monitor technician that he has been wearing because of syncope. He was found to have a very significant pause of his sinus rhythm. The patient was felt to be a good candidate for pacemaker placement. He was sent to the emergency department for his own safety given the dysrhythmia that was noted on his vehicle monitor technician. I discussed the patient's laboratory and radiographic studies with him. I discussed his case with the on-call [facility] hospitalist group. They have agreed to evaluate the patient in the emergency department for further management and disposition. Triage Nursing notes reviewed. Prior medical records reviewed Vital Signs: reviewed and remarkable for elevated blood pressure and bradycardia. Differential diagnosis: Vasovagal event, dehydration, infection, hypoglycemia, electrolyte abnormalities, cardiac sources, intracerebral event, pulmonary embolism, seizure, toxicologic, neurologic, as well as other pathologies. ER treatment provided: See below Diagnostics interpreted by me: ECG: EKG was obtained in the emergency department. My interpretation is normal sinus rhythm at 74 bpm. There is no ectopy. Nonspecific inferior and lateral ST segment abnormalities were noted. Left bundle branch block pattern was favored. This was compared to a tracing from August 182020. No changes were noted. Cardiac Monitoring: An order was placed for continuous cardiac monitoring. The monitor shows a rate of 59 bpm with sinus bradycardia rhythm. Laboratory studies: As stated above and show below. Imaging studies: See below Consultation(s): Dr. Payan was notified about the patient. He will evaluate the patient in the emergency department for further management. Past Med/Surg History Medical History (Updated 09/22/21 @ 20:53 by Lorenzo Krause DO) Alcohol abuse Angioedema CHB (complete heart block) Elevated hemoglobin A1c Hypertension Impaired fasting glucose LBBB (left bundle branch block) Syncope and collapse Thoracic back pain Family History Father Stroke Diabetes Mother Stroke Diabetes Other Dyslipidemia Hypertension Social History Smoking Status: Never smoker Tobacco Type: Smokeless Tobacco (Dip or Chew) Second Hand Exposure: No; Do You Dip or Chew Tobacco: Yes; Tobacco Cessation Education Requested by Patient: No Hx Alcohol Use: Yes Alcohol type: beer Hx Substance Use: No Preferred Language: Hong Konger Communication Ability: Effective 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 Required: No Beliefs That Will Affect Care: None Current Living Situation: Spouse Other Information That Helps Us Care for You: No Feels Safe at Home: Yes Safety Concerns: Feels Safe At This Time Assistive Devices: Glasses Allergies Allergies Allergy/AdvReac Type Severity Reaction Status Date / Time lisinopril AdvReac Intermediate "Swelled Verified 09/22/21 21:11 him up" Home Meds Home Medications Medication Instructions Recorded Confirmed metoprolol succinate 100 mg 100 mg PO BID 07/17/21 09/22/21 tablet,extended release 24 hr multivitamin 1 tab PO DAILY 07/17/21 09/22/21 amlodipine 10 mg tablet 10 mg PO HS 08/16/21 09/22/21 loratadine 10 mg tablet (Claritin) 10 mg PO DAILY 08/16/21 09/22/21 Results & Data (ED) Vital Signs Vital Signs - 24 hr 09/22/21 20:35 09/22/21 20:56 09/22/21 20:57 Temperature 36.5 C Temperature Source Temporal Artery Scan Pulse Rate 74 Pulse Rate [Left] Pulse Rhythm Regular Pulse Rhythm [Left] Pulse Strength Normal Pulse Strength [Left] Respiratory Rate 18 Respiratory Effort / Characteristics Non-Labored Spontaneous Respiratory Depth Normal Respiratory Pattern Regular Blood Pressure 187/99 H Blood Pressure [Right Arm] Blood Pressure Mean 128 Blood Pressure Mean [Right Arm] Blood Pressure Position Sitting Blood Pressure Position [Right Arm] Pulse Oximetry 98 98 98 Oxygen Delivery Method Room Air Room Air Room Air Sepsis Recent Fever Within 48 Hours No Sepsis New/Unexplained Change in Mental Status N/A Sepsis Action Taken by Nursing No Action Required 09/22/21 20:58 09/22/21 21:15 Temperature Temperature Source Pulse Rate Pulse Rate [Left] 66 70 Pulse Rhythm Pulse Rhythm [Left] Regular Regular Pulse Strength Pulse Strength [Left] Normal Normal Respiratory Rate 16 16 Respiratory Effort / Characteristics Non-Labored Non-Labored Respiratory Depth Normal Normal Respiratory Pattern Blood Pressure Blood Pressure [Right Arm] 166/103 H 148/90 H Blood Pressure Mean Blood Pressure Mean [Right Arm] 124 109 Blood Pressure Position Blood Pressure Position [Right Arm] Sitting Pulse Oximetry 98 98 Oxygen Delivery Method Room Air Room Air Sepsis Recent Fever Within 48 Hours Sepsis New/Unexplained Change in Mental Status Sepsis Action Taken by Snf Medications Current Medication List: was personally reviewed by me Laboratory Data Attestation: I reviewed the patient's lab results. Result diagrams: 09/22/21 20:51 09/22/21 20:51 Lab Results 09/22/21 09/22/21 09/22/21 Range/Units 20:51 20:51 20:51 WBC 9.28 (4.8-10.8) K/uL RBC 4.57 L (4.7-6.1) M/uL Hgb 14.5 (14.0-18.0) g/dL Hct 43.2 (42-52) % MCV 94.5 (80-100) fL MCH 31.7 (25-34) pg MCHC 33.6 (32-36) g/dL RDW Std Deviation 42.8 (36.4-46.3) fL RDW Coeff of Maynor 12.4 (11.5-14.5) % Plt Count 310 (130-400) K/uL MPV 10.2 (7.4-10.4) fL Immature Gran % (Auto) 0.3 % Neut % (Auto) 63.4 % Lymph % (Auto) 23.3 % [place] % (Auto) 8.2 % Eos % (Auto) 4.4 % Baso % (Auto) 0.4 % Neut # (Auto) 5.88 (1.4-6.5) K/uL Lymph # (Auto) 2.16 (1.2-3.4) K/uL [place] # (Auto) 0.76 H (0.11-0.59) K/uL Eos # (Auto) 0.41 (0-0.5) K/uL Baso # (Auto) 0.04 (0-0.2) K/uL Immature Gran # (Auto) 0.03 H (0.00-0.02) K/uL PT 9.8 (9.0-12.0) Seconds INR 1.0 (0.9-1.1) APTT 26.1 (21.0-31.0) Seconds PTT Ratio 1.0 Sodium 135 L (136-145) mmol/L Potassium 4.1 (3.5-5.1) mmol/L Chloride 101 (98-107) mmol/L Carbon Dioxide 26 (21-32) mmol/L Anion Gap 8.0 (3-11) BUN 13 (7-18) mg/dl Creatinine 1.06 (0.6-1.4) mg/dl Est Cr Clr Drug Dosing 76.0 ml/min Est GFR ( Amer) 86.1 ml/min Est GFR (Non-Af Amer) 74.3 ml/min BUN/Creatinine Ratio 11.9 (10-20) Glucose 96 (70-99) mg/dl Calcium 9.2 (8.5-10.1) mg/dl Magnesium 2.3 (1.8-2.4) mg/dl Total Bilirubin 0.4 (0.2-1) mg/dl AST 25 (15-37) U/L ALT 42 (12-78) U/L Alkaline Phosphatase 78 (45-117) U/L Total Protein 8.4 H (6.4-8.2) gm/dl Albumin 3.8 (3.4-5.0) gm/dl Globulin 4.6 H (2.5-4.0) gm/dl Albumin/Globulin Ratio 0.8 L (0.9-2) TSH 3.810 (0.300-4.500) uIu/ml Lyme Disease IgG Ab (Negative) Lyme Disease IgM Ab (Negative) COVID-19 Eval Order SARS-CoV-2 (PCR) (Negative) 09/22/21 09/22/21 09/22/21 Range/Units 20:51 21:13 21:13 WBC (4.8-10.8) K/uL RBC (4.7-6.1) M/uL Hgb (14.0-18.0) g/dL Hct (42-52) % MCV (80-100) fL MCH (25-34) pg MCHC (32-36) g/dL RDW Std Deviation (36.4-46.3) fL RDW Coeff of Maynor (11.5-14.5) % Plt Count (130-400) K/uL MPV (7.4-10.4) fL Immature Gran % (Auto) % Neut % (Auto) % Lymph % (Auto) % [place] % (Auto) % Eos % (Auto) % Baso % (Auto) % Neut # (Auto) (1.4-6.5) K/uL Lymph # (Auto) (1.2-3.4) K/uL [place] # (Auto) (0.11-0.59) K/uL Eos # (Auto) (0-0.5) K/uL Baso # (Auto) (0-0.2) K/uL Immature Gran # (Auto) (0.00-0.02) K/uL PT (9.0-12.0) Seconds INR (0.9-1.1) APTT (21.0-31.0) Seconds PTT Ratio Sodium (136-145) mmol/L Potassium (3.5-5.1) mmol/L Chloride (98-107) mmol/L Carbon Dioxide (21-32) mmol/L Anion Gap (3-11) BUN (7-18) mg/dl Creatinine (0.6-1.4) mg/dl Est Cr Clr Drug Dosing ml/min Est GFR ( Amer) ml/min Est GFR (Non-Af Amer) ml/min BUN/Creatinine Ratio (10-20) Glucose (70-99) mg/dl Calcium (8.5-10.1) mg/dl Magnesium (1.8-2.4) mg/dl Total Bilirubin (0.2-1) mg/dl AST (15-37) U/L ALT (12-78) U/L Alkaline Phosphatase (45-117) U/L Total Protein (6.4-8.2) gm/dl Albumin (3.4-5.0) gm/dl Globulin (2.5-4.0) gm/dl Albumin/Globulin Ratio (0.9-2) TSH (0.300-4.500) uIu/ml Lyme Disease IgG Ab Negative (Negative) Lyme Disease IgM Ab Negative (Negative) COVID-19 Eval Order Covid19 at [facility] SARS-CoV-2 (PCR) NEGATIVE (Negative) Imaging Data Radiologist's Impression: Chest X-Ray 09/22/21 20:39 SINGLE VIEW CHEST CLINICAL HISTORY: Generalized weakness. FINDINGS: An AP, portable, upright chest radiograph is compared to study dated 08/16/2021 and correlated with chest CT dated 07/03/2017. An electronic device projects over the mediastinum. The cardiomediastinal silhouette is unremarkable. There is mild elevation of the right hemidiaphragm and bibasilar atelectasis. The lungs and pleural spaces are otherwise clear. No pneumothorax is seen. The bony thorax is grossly intact. IMPRESSION: No active disease in the chest. ACT 112: Negative or not required by law. Electronically signed by: Mars Santos M.D. 09/22/2021 8:58 PM Discharge Plan Visit Data Chief Complaint: Arrhythmia/Palpitations Stated Complaint: HEART STOPPED FOR 12 SECONDS, HEART MONITOR ED Provider: Lorenzo Krause Discharge Problem: Syncope and collapse Patient Disposition: Admitted As Inpatient Discharge Instructions Interventions: ED Discharge Assessment Last Done: 09/22/21 23:23
--- NOTE | 2021-09-22 20:59 | XRay Report ---
SINGLE VIEW CHEST CLINICAL HISTORY: Generalized weakness. FINDINGS: An AP, portable, upright chest radiograph is compared to study dated 08/16/2021 and correlat ed with chest CT dated 07/03/2017. An electronic device projects over the mediastinum. The cardiomedias tinal silhouette is unremarkable. There is mild elevation of the right hemidiaphragm and bibasilar at electasis. The lungs and pleural spaces are otherwise clear. No pneumothorax is seen. The bony thorax is grossly intact. IMPRESSION: No active disease in the chest. ACT 112: Negative or not required by law. Electronically signed by: Mars Santos M.D. 09/22/2021 8:58 PM
[2021-09-22 21:05] LABS: Basophils # (auto) 0.04 K/uL (0-0.2); Basophils % (auto) 0.4 %; Eosinophils # (auto) 0.41 K/uL (0-0.5); Eosinophils % (auto) 4.4 %; Hematocrit (blood only) 43.2 % (42-52); Hemoglobin 14.5 g/dL (14.0-18.0); Immature Granulocytes # (auto) 0.03 K/uL (0.00-0.02); Immature Granulocytes % (auto) 0.3 %; Lymphocytes # (auto) 2.16 K/uL (1.2-3.4); Lymphocytes % (auto) 23.3 %; Mean Corpuscular Hemoglobin 31.7 pg (25-34); Mean Corpuscular Hgb Conc 33.6 g/dL (32-36); Mean Corpuscular Volume 94.5 fL (80-100); Mean Platelet Volume 10.2 fL (7.4-10.4); Monocytes # (auto) 0.76 K/uL (0.11-0.59); Monocytes % (auto) 8.2 %; Neutrophils # (auto) 5.88 K/uL (1.4-6.5); Neutrophils % (auto) 63.4 %; Platelet Count 310 K/uL (130-400); RDW Coefficient of Variation 12.4 % (11.5-14.5); RDW Standard Deviation 42.8 fL (36.4-46.3); Red Blood Count 4.57 M/uL (4.7-6.1); White Blood Count 9.28 K/uL (4.8-10.8)
[2021-09-22 21:09] LABS: Partial Thromboplastin Time 26.1 Seconds (21.0-31.0); Prothrombin Time 9.8 Seconds (9.0-12.0)
[2021-09-22 21:40] LABS: Albumin Level 3.8 gm/dl (3.4-5.0); BUN Creatinine Ratio 11.9 (10-20); Calcium 9.2 mg/dl (8.5-10.1); Est GFR (African American) 86.1 ml/min; Est GFR (Non-African American) 74.3 ml/min; Magnesium 2.3 mg/dl (1.8-2.4); Potassium 4.1 mmol/L (3.5-5.1)
[2021-09-22 21:42] LABS: Lyme Ab IgG w/WB Rflx Negative (Negative); Lyme Ab IgM w/WB Rflx Negative (Negative)
[2021-09-22 21:51] LABS: Albumin Globulin Ratio 0.8 (0.9-2); Bilirubin,Total 0.4 mg/dl (0.2-1); Globulin 4.6 gm/dl (2.5-4.0); Thyroid Stimulating Hormone 3.81 uIu/ml (0.300-4.500); Total Protein 8.4 gm/dl (6.4-8.2)
--- NOTE | 2021-09-22 22:26 | History & Physical Report ---
Date of Service September 22, 2021 Assessment & Plan (1) Syncope and collapse: Plan: Mr. Gonzalez is a 65 yo gentleman who is being admitted for management of recurrent syncope. - etiology is intermittent complete heart block (syncopal episodes correspond to heart block captured on residential monitor) - cardiology has been consulted, plan for permanent pacemaker placement tomorrow - hemodynamically stable on admission - hold home dose metoprolol - temporary pacer pads placed - low threshold to administer atropine for recurrent complete heart block episodes (2) CHB (complete heart block): Plan: - as for etiology: - lyme testing negative - ischemia not thought to be cause (trops neg x 3 during last admissions, no chest pain today) - potassium normal - beta fady on hold (3) LBBB (left bundle branch block): Plan: - chronic Diet: NPO Dispo: PCU/tele DVT ppx: Lovenox Code: Full, I discussed with patient History of Present Illness Primary Care Provider: ROXANA Lynch Mr. Gonzalez is a 65 yo gentleman who has a PMHx of intermittent complete heart block and associated traumatic syncopal episodes who came to the [facility] ED today for evaluation after a recurrent episode. He was hospitalized here in 07/2021 for a traumatic syncopal episode that resulted in facial abrasions and cervical ligamentous strain. Cardiac enzymes were negative x and telemetry was benign during that admission. He did have an event monitor placed on 09/19/21, which recorded one brief episode (3 beats) of complete heart block. He follows with [facility] and was seen in their office today for an outpatient evaluation. The purpose of this visit was to discuss planning of pacemaker placement with Dr. Dennison next week. However after returning home, Mr. Gonzalez had a recurrent episode of syncope - fortunately he passed out on his bed and did not hurt himself. He received a phone call shortly thereafter from a telemetry space and storage clerk who told him he just had a 12 second pause. He was then advised to come into the ED. He denies any chest pain, SOB, fever, nausea/vomiting and diarrhea. In the ED, he was afebrile with normal HR, BP and oxygenation. His CBC, coags, CMP, and TSH were normal. Lyme testing negative. Covid 19 neg. EKG showing NSR at 74 bpm; no ectopy, LBBB. CXR was WNL. Allergies Allergy/AdvReac Type Severity Reaction Status Date / Time lisinopril AdvReac Intermediate "Swelled Verified 09/22/21 21:11 him up" Home Medications Medication Instructions Recorded Confirmed Type metoprolol succinate 100 mg 100 mg PO BID 07/17/21 09/22/21 History tablet,extended release 24 hr multivitamin 1 tab PO DAILY 07/17/21 09/22/21 History amlodipine 10 mg tablet 10 mg PO HS 08/16/21 09/22/21 History loratadine 10 mg tablet (Claritin) 10 mg PO DAILY 08/16/21 09/22/21 History Past Med/Surg History Medical History (Updated 09/22/21 @ 20:53 by Lorenzo Krause DO) Alcohol abuse Angioedema CHB (complete heart block) Elevated hemoglobin A1c Hypertension Impaired fasting glucose LBBB (left bundle branch block) Syncope and collapse Thoracic back pain Family History Father Stroke Diabetes Mother Stroke Diabetes Other Dyslipidemia Hypertension Social History Smoking Status: Never smoker Tobacco Type: Smokeless Tobacco (Dip or Chew) Second Hand Exposure: No; Hx Alcohol Use: Yes Alcohol type: beer Hx Substance Use: No Preferred Language: Eritrean Communication Ability: Effective Bundler Required: No Beliefs That Will Affect Care: None marital status: Current Living Situation: Spouse How many Children do You have: 3 Feels Safe at Home: Yes Assistive Devices: None Review of Systems Review of Systems: All systems reviewed & are unremarkable except as noted in HPI & below Physical Exam Constitutional: WD/WN, vitals as above cooperative; no acute distress Eyes: + anicteric sclerae ENMT: external ear and nose normal, oropharynx normal Neck: trachea midline Respiratory: normal respiratory effort, lungs clear to auscultation Cardiovascular: RRR, no murmur, no edema Heart Sounds: normal S1 and normal S2 Extremities: no pedal edema Gastrointestinal (Abdomen): normal bowel sounds, soft, nontender, no hepatosplenomegaly Musculoskeletal: Head/Neck/Chest: normocephalic and head atraumatic Skin: no rashes, warm and dry Neurologic: moves all extremities Psychiatric: A+Ox3, euthymic affect Results & Data Results & Data ([facility]) Vital Signs (Past 12 Hours) Vital Signs Temp Pulse Pulse Resp BP BP Pulse Ox 09/22/21 21:15 70 16 148/90 H 98 09/22/21 20:58 66 16 166/103 H 98 09/22/21 20:57 98 09/22/21 20:56 98 09/22/21 20:35 36.5 C 74 18 187/99 H 98 Supervising Physician Co-Signing Physician Notes Attending addendum: I have physically seen this patient, have supervised the medical residents activities, and agree with the H&P unless as otherwise noted. Assessment and Plan: Syncope and collapse- Referred from outpatient setting due to concerns regarding intermittent heart block noted on residential monitor The patient will be admitted to telemetry for serial cardiac enzymes, serial EKG's, cardiac rhythm monitoring and a 2-D echocardiogram with Dopplers. Cardiology consulted, as they have plans for permanent pacemaker insertion Hold metoprolol Pacer pads on Left bundle branch block is noted to be chronic Remaining orders and notations as noted Resident Activity Tracking Resident Involvement: Resident Care Provided Care Provided: Adult Hospital Medicine
[2021-09-22] MEDS ORDERED: ONDANSETRON INJ 2 MG/ML 2 ML VIAL IV PRN (23:36)
[2021-09-22 23:49] LABS: Appearance Urine Clear (Clear); Bilirubin Urine Negative (Negative); Blood Urine Negative (Negative); Color Urine Yellow; Glucose Urine UA Negative (Negative); Ketones Urine Negative (Negative); Leukocyte Esterase Urine Negative (Negative); Nitrite Urine Negative (Negative); Protein Urine Negative (Negative); Specific Gravity Urine 1.003 (1.000-1.030); Urobilinogen Urine Negative (Negative); pH Urine 6.5 (4.5-7.5)
[2021-09-23] MEDS: SODIUM CHLORIDE 0.9% 1000ML 1,000 ML IV SCH ×2 (08:06)
--- NOTE | 2021-09-23 08:38 | Hospitalist Progress Note ---
Date of Service September 23, 2021 Assessment & Plan (1) Syncope and collapse: Plan: Mr. Gonzalez is a 65 yo gentleman who is being admitted for management of recurrent syncope. Syncope: - etiology is intermittent complete heart block (syncopal episodes correspond to heart block captured on cardiac cath lab manager at home) - cardiology has been consulted, plan for permanent pacemaker placement likely today 09/23 - hemodynamically stable -- tele reviewed this AM, in NSR consistently since admission - hold home dose metoprolol - temporary pacer pads in place - low threshold to administer atropine for recurrent complete heart block episodes CHB (complete heart block): - As seen on home cardiac cath lab manager, EKG on admission with normal sinus rhythm and LBBB, telemetry with normal sinus rhythm since admission - as for etiology: - lyme testing negative - ischemia not thought to be cause (trops neg x 3 during last admissions, no chest pain today) - potassium normal - beta fady on hold - Likely conduction abnormality -- await further cardiology insight LBBB (left bundle branch block): - chronic Diet: NPO Dispo: PCU/tele DVT ppx: Lovenox Code: Full (2) CHB (complete heart block): (3) LBBB (left bundle branch block): Admission and Anticipated Discharge Date Admission Date: September 22, 2021 Supervising Physician Co-Signing Physician Notes I personally examined the patient and verified all brian points of history and exam, discussed case, and agree with decision making with Dr Lugo. Feeling okay postop. No complaints. No questions. Vitals noted, in general he is awake and alert pleasant no distress. HEENT normocephalic atraumatic mucous membranes are moist. Breathing unlabored no accessory muscle use good effort. Skin shows no rashes no pallor or icterus. Neuro without focal deficits. Incision site dressed, no tracking erythema or bruising. Complete heart blockstatus post pacer insertionanticipate home tomorrow. Continue supportive care. Otherwise as above. Subjective No acute events overnight. Patient seen sitting at bedside this morning. He denies any current symptoms associated to heart block. Denies chest pain, palpitations, nausea, vomiting, shortness of breath, dizziness, headache, loss of consciousness since admission. Reports that he saw Dr. Braga yesterday and plans were for pacemaker placement next week, but got a call from Dr. Walsh reporting 12.6-second pause on his event monitor and was recommended to come to hospital. Review of Systems Review of Systems: per subjective Physical Exam Physical Exam: GENERAL: A&Ox3. NAD. HEENT: EOMI. Moist mucous membranes. NECK: No JVD. No lymphadenopathy. CHEST/LUNGS: CTAB A/P. No crackles, wheezes, rales, rhonchi. HEART: RRR. No m/g/r. No carotid bruits. EXTREMITIES: No cyanosis, no clubbing, no edema Results & Data Results & Data ([facility]) Vital Signs (Past 12 Hours) Vital Signs Temp Pulse Resp BP Pulse Ox 09/23/21 08:00 37.2 C 73 20 149/97 H 98 09/23/21 03:46 36.6 C 54 L 16 126/73 98 09/22/21 23:22 36.8 C 59 L 18 166/91 H 98 09/22/21 22:27 68 16 132/82 98 09/22/21 21:15 70 16 148/90 H 98 09/22/21 20:58 66 16 166/103 H 98 09/22/21 20:57 98 09/22/21 20:56 98 Resident Activity Tracking Resident Involvement: Resident Care Provided Care Provided: Adult Hospital Medicine
--- NOTE | 2021-09-23 09:41 | Electrocardiogram Report ---
Test Reason : Blood Pressure : / mmHG Vent. Rate : 074 BPM Atrial Rate : 074 BPM P-R Int : 150 ms QRS Dur : 124 ms QT Int : 406 ms P-R-T Axes : 063 059 084 degrees QTc Int : 450 ms Normal sinus rhythm Left bundle branch block Abnormal ECG When compared with ECG of 18-AUG-2021 05:02, Nonspecific T wave abnormality now evident in Inferior leads Confirmed by Tyshawn Dennison ([id number]) on 09/23/2021 9:41:17 AM Referred By: Deacon Braga Confirmed By:Dane Dennison
--- NOTE | 2021-09-23 11:05 | Cardiology Consultation ---
Date of Consultation September 23, 2021 Assessment & Plan (1) LBBB (left bundle branch block): (2) CHB (complete heart block): (3) Syncope and collapse: 1. Syncope: This seems to be a good correlation between intermittent complete heart block and syncope. He has baseline conduction disease with a left bundle branch block. I do not see an echocardiogram performed recently. I suspect this was not performed during his last admission due to concerns over COVID 19. In the absence of a cardiomyopathy he will require a permanent pacemaker. I discussed the risk, benefits and details of the procedure with the patient we will plan on proceeding today. History of Present Illness Reason for Consultation: Syncope Requesting Physician: Gio Attending Physician: Milan Thomas DO History of Present Illness The patient is a 65-year-old gentleman with a history of syncope. He was admitted to the hospital last month after suffering an injury related to syncope. The patient was sent home on outpatient monitoring and was noted to have an episode of complete heart block lasting a few seconds. That episode did not result in symptoms, but based on his history and these conduction abnormalities he was scheduled for a permanent pacemaker on September 26. It seems that last night the on-call supervisor cab was notified of an additional episode of complete heart block resulting in 12 seconds of asystole. At there did not seem to be any symptoms associated with the episode, but further investigation suggested that the patient may have lost consciousness and fell on his bed. The patient states that he was putting away close in his room he woke up on his bed. He cannot recall any prodrome or symptoms leading up to this event. Afterwards he states he was slightly disoriented for a few seconds. He has not felt poorly since that time. The patient has been otherwise active. 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 He denies limiting dyspnea. No history of exertional chest discomfort chest pain at rest. No sense of palpitation. The patient did have 1 additional episode of syncope approximately 2 months ago. He states that he was working outside on a hot day and lost consciousness. There was some question regarding the role of orthostatic hypotension in that episode. Allergies Allergy/AdvReac Type Severity Reaction Status Date / Time lisinopril AdvReac Intermediate "Swelled Verified 09/22/21 21:11 him up" Home Medications Medication Instructions Recorded Confirmed Type metoprolol succinate 100 mg 100 mg PO BID 07/17/21 09/22/21 History tablet,extended release 24 hr multivitamin 1 tab PO DAILY 07/17/21 09/22/21 History amlodipine 10 mg tablet 10 mg PO HS 08/16/21 09/22/21 History loratadine 10 mg tablet (Claritin) 10 mg PO DAILY 08/16/21 09/22/21 History Patient History Medical History (Updated 09/22/21 @ 20:53 by Lorenzo Krause DO) Alcohol abuse Angioedema CHB (complete heart block) Elevated hemoglobin A1c Hypertension Impaired fasting glucose LBBB (left bundle branch block) Syncope and collapse Thoracic back pain Family History Father Stroke Diabetes Mother Stroke Diabetes Other Dyslipidemia Hypertension Social History Smoking Status: Never smoker Tobacco Type: Smokeless Tobacco (Dip or Chew) Second Hand Exposure: No; Do You Dip or Chew Tobacco: Yes; Tobacco Cessation Education Requested by Patient: No Hx Alcohol Use: Yes Alcohol type: beer Hx Substance Use: No Preferred Language: Irish Communication Ability: Effective Calciner Operator Helper Required: No Beliefs That Will Affect Care: None Current Living Situation: Spouse Other Information That Helps Us Care for You: No Feels Safe at Home: Yes Safety Concerns: Feels Safe At This Time Assistive Devices: Glasses Review of Systems Review of Systems: Per HPI. Physical Exam Physical Exam: The patient is alert and oriented. Mood and affect appeared normal. He answered all questions appropriately. HEENT: Pupils are equal and reactive to light and accommodation. Extraocular movements are intact. The sclerae are anicteric. Neuro: Cranial nerves intact Lungs: Clear to auscultation bilaterally. He has good air movement without use of accessory muscles. No rales wheezes or rhonchi. Cardiac: Heart demonstrates a regular rate and rhythm. Normal S1 and S2. No murmurs on examination. Pulses: The patient has palpable radial pulses bilaterally that are equal in intensity Extremities: There was no evidence of hypoperfusion. There is no cyanosis or clubbing. There is no edema. Skin: I did not appreciate any rashes on examination today. Results & Data ([facility]) Vital Signs (Past 12 Hours) Vital Signs Temp Pulse Pulse Resp BP Pulse Ox 09/23/21 10:01 69 09/23/21 08:00 37.2 C 73 20 149/97 H 98 09/23/21 03:46 36.6 C 54 L 16 126/73 98 09/22/21 23:22 36.8 C 59 L 18 166/91 H 98 Laboratory Results Abnormal Lab Results 09/22/21 09/22/21 09/22/21 20:51 20:51 20:51 WBC 9.28 RBC 4.57 L Hgb 14.5 Hct 43.2 MCV 94.5 MCH 31.7 MCHC 33.6 RDW Std Deviation 42.8 RDW Coeff of Maynor 12.4 Plt Count 310 MPV 10.2 Immature Gran % (Auto) 0.3 Neut % (Auto) 63.4 Lymph % (Auto) 23.3 Bladen % (Auto) 8.2 Eos % (Auto) 4.4 Baso % (Auto) 0.4 Neut # (Auto) 5.88 Lymph # (Auto) 2.16 Bladen # (Auto) 0.76 H Eos # (Auto) 0.41 Baso # (Auto) 0.04 Immature Gran # (Auto) 0.03 H PT 9.8 INR 1.0 APTT 26.1 PTT Ratio 1.0 Sodium 135 L Potassium 4.1 Chloride 101 Carbon Dioxide 26 Anion Gap 8.0 BUN 13 Creatinine 1.06 Est Cr Clr Drug Dosing 76.0 Est GFR ( Amer) 86.1 Est GFR (Non-Af Amer) 74.3 BUN/Creatinine Ratio 11.9 Glucose 96 Calcium 9.2 Magnesium 2.3 Total Bilirubin 0.4 AST 25 ALT 42 Alkaline Phosphatase 78 Total Protein 8.4 H Albumin 3.8 Globulin 4.6 H Albumin/Globulin Ratio 0.8 L TSH 3.810 Urine Color Urine Appearance Urine pH Ur Specific [place] Urine Protein Urine Glucose (UA) Urine Ketones Urine Blood Urine Nitrite Urine Bilirubin Urine Urobilinogen Ur Leukocyte Esterase Lyme Disease IgG Ab Lyme Disease IgM Ab COVID-19 Eval Order SARS-CoV-2 (PCR) 09/22/21 09/22/21 09/22/21 20:51 21:13 21:13 WBC RBC Hgb Hct MCV MCH MCHC RDW Std Deviation RDW Coeff of Maynor Plt Count MPV Immature Gran % (Auto) Neut % (Auto) Lymph % (Auto) Bladen % (Auto) Eos % (Auto) Baso % (Auto) Neut # (Auto) Lymph # (Auto) Bladen # (Auto) Eos # (Auto) Baso # (Auto) Immature Gran # (Auto) PT INR APTT PTT Ratio Sodium Potassium Chloride Carbon Dioxide Anion Gap BUN Creatinine Est Cr Clr Drug Dosing Est GFR ( Amer) Est GFR (Non-Af Amer) BUN/Creatinine Ratio Glucose Calcium Magnesium Total Bilirubin AST ALT Alkaline Phosphatase Total Protein Albumin Globulin Albumin/Globulin Ratio TSH Urine Color Urine Appearance Urine pH Ur Specific [place] Urine Protein Urine Glucose (UA) Urine Ketones Urine Blood Urine Nitrite Urine Bilirubin Urine Urobilinogen Ur Leukocyte Esterase Lyme Disease IgG Ab Negative Lyme Disease IgM Ab Negative COVID-19 Eval Order Covid19 at [facility] SARS-CoV-2 (PCR) NEGATIVE 09/22/21 23:30 WBC RBC Hgb Hct MCV MCH MCHC RDW Std Deviation RDW Coeff of Maynor Plt Count MPV Immature Gran % (Auto) Neut % (Auto) Lymph % (Auto) Bladen % (Auto) Eos % (Auto) Baso % (Auto) Neut # (Auto) Lymph # (Auto) Bladen # (Auto) Eos # (Auto) Baso # (Auto) Immature Gran # (Auto) PT INR APTT PTT Ratio Sodium Potassium Chloride Carbon Dioxide Anion Gap BUN Creatinine Est Cr Clr Drug Dosing Est GFR ( Amer) Est GFR (Non-Af Amer) BUN/Creatinine Ratio Glucose Calcium Magnesium Total Bilirubin AST ALT Alkaline Phosphatase Total Protein Albumin Globulin Albumin/Globulin Ratio TSH Urine Color Yellow Urine Appearance Clear Urine pH 6.5 Ur Specific [place] 1.003 Urine Protein Negative Urine Glucose (UA) Negative Urine Ketones Negative Urine Blood Negative Urine Nitrite Negative Urine Bilirubin Negative Urine Urobilinogen Negative Ur Leukocyte Esterase Negative Lyme Disease IgG Ab Lyme Disease IgM Ab COVID-19 Eval Order SARS-CoV-2 (PCR) Diagnostic Findings Chest x-ray obtained the time admission not reveal any acute cardiopulmonary findings. PG Care Time/CCT Total # of Minutes Spent Total Time Spent with Patient: Total time spent is greater than 50% in coordination of care (as documented) at patient's floor/unit and/or counseling patient: Coding Level of Care Code 33033 Inpt Consult Level 4 Diagnoses LBBB (left bundle branch block) I44.7 CHB (complete heart block) I44.2 Syncope and collapse R55
[2021-09-23] MEDS ORDERED: BUPIVACAINE 0.25% 30 ML VIAL ONE (11:39)
[2021-09-23] MEDS ORDERED: VANCOMYCIN HCL 1000MG/20ML VIAL ONE (11:39)
[2021-09-23] MEDS ORDERED: LIDOCAINE 1% LOCAL 20 ML VIAL ONE (11:39)
[2021-09-23] MEDS ORDERED: WATER, STERILE FOR INJ 10 ML VIAL ONE (11:39)
[2021-09-23] MEDS ORDERED: MIDAZOLAM HCL 5 MG/ML 1 ML VIAL ONE (12:26)
[2021-09-23] MEDS ORDERED: fentaNYL citrate 100 MCG/2 ML VIAL ONE (12:26)
--- NOTE | 2021-09-23 12:31 | Pre Anesthesia Assessment ---
Date of Service September 23, 2021 Pre Sedation Assessment Vital Signs Temp Pulse Pulse Resp BP BP Pulse Ox 09/23/21 11:42 54 L 16 160/84 H 09/23/21 10:01 69 09/23/21 08:00 37.2 C 73 20 149/97 H 98 09/23/21 03:46 36.6 C 54 L 16 126/73 98 09/22/21 23:22 36.8 C 59 L 18 166/91 H 98 09/22/21 22:27 68 16 132/82 98 09/22/21 21:15 70 16 148/90 H 98 09/22/21 20:58 66 16 166/103 H 98 09/22/21 20:57 98 09/22/21 20:56 98 09/22/21 20:35 36.5 C 74 18 187/99 H 98 Cardiovascular + regular rate and + regular rhythm Respiratory + respiratory effort normal Pre-Sedation Airway Assessment Smoking Status: Never smoker Hx Sleep Apnea: No Hx Difficult Intubation: No Short, Thick Neck: No Thyromental Distance: > or= 3.5 Finger Breadths Oral Cavity: + WNL Mallampati Class: III ASA: ASA3 NPO Status Date of Last Intake of Fluids: 09/22/21 Date of Last Intake of Solid Food: 09/22/21 Procedure Planning Contraindications for Sedation: none Current Medications Reviewed: Yes Notes The planned sedation has been discussed with the patient. Informed Consent was obtained. I have identified the patient, determined the appropriateness of sedation and have assessed the patient immediately prior to the procedure. All medicine(s) and interventions are by my order.
[2021-09-23] MEDS ORDERED: ACETAMINOPHEN 325 MG TAB PO PRN (13:22)
[2021-09-23] MEDS ORDERED: oxyCODONE HCL IR 5 MG TAB (IMMEDIATE RELEASE) PO PRN (13:22)
--- NOTE | 2021-09-23 13:22 | Electrophysiology Report ---
Date of Service September 23, 2021 Electrophysiology Procedure Electrophysiology Procedure Report Procedure performed: Implantation of dual-chamber permanent pacemaker Staff research laboratory technician: Tyshawn Dennison MD Indication: The patient is a 65-year-old gentleman with a history of syncope who was noted on outpatient monitoring to have symptoms associated with complete heart block. He is therefore felt to be a good candidate for permanent pacemaker due to symptomatic nonreversible AV node dysfunction. Dual-chamber device was selected as the patient is currently in sinus rhythm and wish to maintain AV synchrony. Procedure in detail: The patient was informed of the risks benefits and alternatives to the intended procedure and she wished to proceed. He was taken to the electrophysiology suite in a fasting state. A preoperative antibiotic had been administered. The patient was monitored electrocardiographically throughout today's procedure and conscious sedation was administered per protocol. The left upper pectoral area is prepped and draped in usual sterile fashion. This area was anesthetized using subcutaneous administration of a xylocaine solution. An incision was made at this site and carried down to the prepectoralis fascia using sharp dissection. Electrocautery was also employed for dissection as well as for hemostasis. A device pocket was fashioned tissues above the pectoralis muscle. Subsequent to this maneuver the left axillary vein was accessed using modified Seldinger technique. Sheaths were placed over guidewires at this site and used to facilitate passage of the pacing leads to the respective chambers under fluoroscopic guidance. This included right atrial and right ventricular leads. Adequate sensing and threshold parameters were obtained prior to Active fixation of the leads to the endocardial surface. The proximal portion leads were then sutured the prepectoral fascia using nonabsorbable suture. The device pocket was irrigated with antibiotic solution. The leads were then attached to the device. The device and leads were then placed in the pocket and pocket was closed in 3 layers of absorbable suture. Steri-Strips and sterile dressing were applied. The device was tested noninvasively prior to conclusion the procedure. The patient tolerated procedure well there no immediate complications. Equipment used: New pulse generator: Senior Quality Analyst Med91 Boyuan Wireles. Model number: [id number] serial number [id number] Right atrial lead: Senior Quality Analyst Med91 Boyuan Wireles. Model number: 5076 serial number [id number] Right ventricular lead: Senior Quality Analyst PLDT. Model number: 5076 serial number [id number] Measured data: Right atrial lead: P waves measured 2.3 mV. Pacing threshold was 0.75 V at 0.4 ms Right ventricular lead: R waves measured 11 mV. Pacing threshold was 0.75 V at 0.4 ms Impression: Successful implantation of dual-chamber permanent pacemaker [facility] Electrophysiology codes Pacing Procedure 1: Pacin Insert/Replace Pacer A & V PG Moderate Sedation Codes Moderate Sedation Codes Procedure 1: Sedation/Anesthesia: 33419 Mod Sedation by the same physician;Init15 Min Child Age 5 & Up Procedure 2: Sedation/Anesthesia: 70776 Mod Sedation by the same physician; Justice Rivero [email or web address] Minutes
--- NOTE | 2021-09-23 13:22 | Post Anesthesia Assessment ---
Date of Service September 23, 2021 Post Sedation Assessment Vital Signs Temp Pulse Pulse Resp BP BP Pulse Ox 09/23/21 11:42 54 L 16 160/84 H 09/23/21 10:01 69 09/23/21 08:00 37.2 C 73 20 149/97 H 98 09/23/21 03:46 36.6 C 54 L 16 126/73 98 09/22/21 23:22 36.8 C 59 L 18 166/91 H 98 09/22/21 22:27 68 16 132/82 98 09/22/21 21:15 70 16 148/90 H 98 09/22/21 20:58 66 16 166/103 H 98 09/22/21 20:57 98 09/22/21 20:56 98 09/22/21 20:35 36.5 C 74 18 187/99 H 98 Recovery Score Activity: Moves 4 extremities Respiration: Deep Breath/Cough Circulation: +/-20% PreAnes Value Consciousness: Fully Awake Oxygen Saturation: > 92% On Room Air Discharge Sedation Level of Care: Fast Track Phase II Post Sedation Plan On clinical assessment, the patient appears to have tolerated the sedation without complications. Patient is recovering as anticipated. Patient will continue to be monitored by nursing and may be discharged when sedation discharge criteria are met per below protocol. Upon Completions of procedure up to 15 minutes continue every 5 minute vital signs and the P.A.R. score; then discharge to a Phase I or Fast Track to Phase II per the following guidelines: * Discharge Patient to appropriate Phase II area if PAR is 8 or greater or return to pre- procedure baseline. The post - procedure orders will be as di rected. * If PAR score is less than 8 or not return to pre-procedure baseline then patient will follow Phase I monitoring till PAR is reached for Phase II. The Phase I may be done in procedure room or may call to secure a Phase I area. * If naloxone or flumazenil are used for reversal, hold in Phase I for continued monitoring from when last reversal dose was given for a minimum of 60 minutes or longer pending the nurse and/or physician discretion of patient condition before discharge to Phase II. Please call the Sedation Physician to re-evaluate and complete post-note for discharge to Phase II area. Do NOT discharge from procedure sedation or Phase 1 until post- sedation evaluation note is complete by procedure /sedation MD Sedation Discharge Instructions to be given to the patient at discharge to home.
--- NOTE | 2021-09-23 13:46 | XCELERA ---
[id number]
--- NOTE | 2021-09-23 16:27 | Billing Data ---
Date of Service September 23, 2021 Coding Level of Care Code 01912 Subseq Hosp Care Lvl 1
--- NOTE | 2021-09-23 18:14 | Electrocardiogram Report ---
Test Reason : Blood Pressure : / mmHG Vent. Rate : 060 BPM Atrial Rate : 060 BPM P-R Int : 178 ms QRS Dur : 122 ms QT Int : 450 ms P-R-T Axes : -02 025 088 degrees QTc Int : 450 ms Atrial-paced rhythm Left bundle branch block Abnormal ECG When compared with ECG of 22-SEP-2021 20:41, Electronic atrial pacemaker has replaced Sinus rhythm Nonspecific T wave abnormality no longer evident in Inferior leads Confirmed by Tyshawn Dennison ([id number]) on 09/23/2021 6:14:07 PM Referred By: Deacon Braga Confirmed By:Dane Dennison
[2021-09-23] MEDS ORDERED: METOPROLOL SUCC 50MG EXT REL TAB PO SCH (21:00)
[2021-09-23] MEDS ORDERED: amLODIPine BESYLATE 5 MG TAB PO SCH (21:00)
[2021-09-23] MEDS: ceFAZolin 1000MG 1,000 MG/7.5 ML SYR IV SCH (21:44)
--- NOTE | 2021-09-23 22:25 | Billing Data ---
Date of Service September 23, 2021 Coding Level of Care Code 66190 Initial Inpt Care Lvl 3
[2021-09-24] MEDS: ceFAZolin 1000MG 1,000 MG/7.5 ML SYR IV SCH (06:29)
--- NOTE | 2021-09-24 08:00 | Discharge Summary ---
Date of Service September 24, 2021 Admission HPI Per Admitting Provider Mr. Gonzalez is a 65 yo gentleman who has a PMHx of intermittent complete heart block and associated traumatic syncopal episodes who came to the [facility] ED today for evaluation after a recurrent episode. He was hospitalized here in 07/2021 for a traumatic syncopal episode that resulted in facial abrasions and cervical ligamentous strain. Cardiac enzymes were negative x and telemetry was benign during that admission. He did have an event monitor placed on 09/19/21, which recorded one brief episode (3 beats) of complete heart block. He follows with [facility] and was seen in their office today for an outpatient evaluation. The purpose of this visit was to discuss planning of pacemaker placement with Dr. Dennison next week. However after returning home, Mr. Gonzalez had a recurrent episode of syncope - fortunately he passed out on his bed and did not hurt himself. He received a phone call shortly thereafter from a telemetry patient accounts clerk who told him he just had a 12 second pause. He was then advised to come into the ED. He denies any chest pain, SOB, fever, nausea/vomiting and diarrhea. In the ED, he was afebrile with normal HR, BP and oxygenation. His CBC, coags, CMP, and TSH were normal. Lyme testing negative. Covid 19 neg. EKG showing NSR at 74 bpm; no ectopy, LBBB. CXR was WNL. Principal Diagnosis Complete heart block Discharge Exam GENERAL: A&Ox3. NAD. HEENT: EOMI. Moist mucous membranes. NECK: No JVD. No lymphadenopathy. CHEST/LUNGS: CTAB A/P. No crackles, wheezes, rales, rhonchi. HEART: RRR. No m/g/r. No carotid bruits. EXTREMITIES: No cyanosis, no clubbing, no edema Discharge Data Allergies Allergy/AdvReac Type Severity Reaction Status Date / Time lisinopril AdvReac Intermediate "Swelled Verified 09/22/21 21:11 him up" Consultations 09/22/21 21:37 ED Decision to Admit Stat 09/22/21 23:36 Consult Cardiology Routine Procedures Performed Operation Date: 09/23/21 11:30 Actual Procedures p Pacer with A/V Leads (Dual) - Sudarshan Dennison MD Ordered Studies 09/23/21 09:22 CL Cath Imgs for PACS use only Stat 09/23/21 11:45 EP Lab Images for PACS ONCE Hospital Course (1) Syncope and collapse: Mr. Gonzalez is a 65 yo gentleman who is being admitted for management of recurrent syncope. 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 at home) - cardiology has been consulted -- pacer placed 09/23/2021 - hemodynamically stable -- no episodes of heart block in hospital - DC with plans for cardio f/u CHB (complete heart block): - As seen on home steam hammer operator, EKG on admission with normal sinus rhythm and LBBB, telemetry with normal sinus rhythm since admission - as for etiology: - lyme testing negative - ischemia not thought to be cause (trops neg x 3 during last admissions, no chest pain today) - potassium normal - beta fady on hold - Likely conduction abnormality -Pacer placed 09/23 LBBB (left bundle branch block): - chronic Dispo: Home, self-care (2) CHB (complete heart block): (3) LBBB (left bundle branch block): Discharge Plan Discharge Items Patient Disposition: Home - Self-Care Reason For Visit: COMPLETE HEART BLOCK Discharge Diagnosis: Complete heart block Activity: Per Instructions section Non-emergency contact: Primary Care Provider and Pediatric Speech Language Pathologist Call non-emergency contact if: your symptoms worsen Follow-up/Referrals: Miya Chou CRNP [Primary Care Provider] - Diet: Heart Healthy Addtl Attending Provider Instructions: You were admitted to [facility] due to findings of complete heart block on your cardiac event monitor. This was thought to be most likely caused by a conduction abnormality of your heart. As such, you had a pacemaker placed by Cardiology. You did not have any further episodes of heart block while admitted. Prior to discharge, your pacemaker was evaluated and found to be in appropriate working order. Please follow-up with cardiology in the outpatient setting for further care and recommendations. Pending Studies at Discharge: No Stand-Alone Forms: My [facility], Smoking Cessation Medications and DC Order Prescriptions: Continued metoprolol succinate 100 mg tablet extended release 24 hr 100 mg PO BID RF: 0 multivitamin Tablet 1 tab PO DAILY RF: 0 amlodipine 10 mg Tablet 10 mg PO HS RF: 0 loratadine [Claritin] 10 mg Tablet 10 mg PO DAILY RF: 0 Admission Data Admit Date/Time: 09/22/21 22:20 Attending Provider: Milan Thomas Admit Provider: Cyn Balderas Primary Care Provider: Miya Chou Other Providers: Herbie James ; Sudarshan Dennison
[2021-09-24 09:13] LABS: Basophils # (auto) 0.03 K/uL (0-0.2); Basophils % (auto) 0.2 %; Eosinophils # (auto) 0.24 K/uL (0-0.5); Eosinophils % (auto) 1.9 %; Hematocrit (blood only) 47.1 % (42-52); Hemoglobin 15.7 g/dL (14.0-18.0); Immature Granulocytes # (auto) 0.03 K/uL (0.00-0.02); Immature Granulocytes % (auto) 0.2 %; Lymphocytes # (auto) 1.36 K/uL (1.2-3.4); Lymphocytes % (auto) 10.9 %; Mean Corpuscular Hgb Conc 33.3 g/dL (32-36); Mean Corpuscular Volume 95.9 fL (80-100); Mean Platelet Volume 10.1 fL (7.4-10.4); Monocytes # (auto) 1.12 K/uL (0.11-0.59); Neutrophils # (auto) 9.69 K/uL (1.4-6.5); Neutrophils % (auto) 77.8 %; Platelet Count 295 K/uL (130-400); RDW Coefficient of Variation 12.7 % (11.5-14.5); Red Blood Count 4.91 M/uL (4.7-6.1); White Blood Count 12.47 K/uL (4.8-10.8)
--- NOTE | 2021-09-24 09:24 | Discharge Summary ---
Date of Service September 24, 2021 Admission HPI Per Admitting Provider Mr. Gonzalez is a 65 yo gentleman who has a PMHx of intermittent complete heart block and associated traumatic syncopal episodes who came to the [facility] ED today for evaluation after a recurrent episode. He was hospitalized here in 07/2021 for a traumatic syncopal episode that resulted in facial abrasions and cervical ligamentous strain. Cardiac enzymes were negative x and telemetry was benign during that admission. He did have an event monitor placed on 09/19/21, which recorded one brief episode (3 beats) of complete heart block. He follows with [facility] and was seen in their office today for an outpatient evaluation. The purpose of this visit was to discuss planning of pacemaker placement with Dr. Dennison next week. However after returning home, Mr. Gonzalez had a recurrent episode of syncope - fortunately he passed out on his bed and did not hurt himself. He received a phone call shortly thereafter from a telemetry service order clerk who told him he just had a 12 second pause. He was then advised to come into the ED. He denies any chest pain, SOB, fever, nausea/vomiting and diarrhea. In the ED, he was afebrile with normal HR, BP and oxygenation. His CBC, coags, CMP, and TSH were normal. Lyme testing negative. Covid 19 neg. EKG showing NSR at 74 bpm; no ectopy, LBBB. CXR was WNL. Principal Diagnosis Syncope, complete heart block Discharge Exam At the time of discharge the wound was healing well. No significant ecchymosis or drainage. No hematoma. No erythema. Discharge Data Allergies Allergy/AdvReac Type Severity Reaction Status Date / Time lisinopril AdvReac Intermediate "Swelled Verified 09/22/21 21:11 him up" Consultations 09/22/21 21:37 ED Decision to Admit Stat 09/22/21 23:36 Consult Cardiology Routine Procedures Performed Operation Date: 09/23/21 11:30 Actual Procedures p Pacer with A/V Leads (Dual) - Sudarshan Dennison MD Ordered Studies 09/23/21 09:22 CL Cath Imgs for PACS use only Stat 09/23/21 11:45 EP Lab Images for PACS ONCE Hospital Course (1) CHB (complete heart block): The day following admission the patient underwent implantation of a dual- chamber [employer] pacemaker. There were no immediate complications. The following morning the wound appeared to be healing well. Chest x-ray did not demonstrate any pneumothorax and lead position was stable. Device interrogation revealed normal function of both the atrial ventricular leads. Total Time Total Time Spent Total Time Spent (In Minutes): 10 Discharge Plan Discharge Items Patient Disposition: Home - Self-Care Reason For Visit: COMPLETE HEART BLOCK Discharge Diagnosis: Complete heart block Condition on Discharge: Good Activity: Per Instructions section Activity Comment: No lifting left arm above shoulder or behind neck for 6 weeks Lifting: No more than 10 pounds Bathing: Keep incision dry Bathing Comment: keep wound dry and steri-strip intact until f/u next week Non-emergency contact: Primary Care Provider and Business Development Call non-emergency contact if: your symptoms worsen Follow-up/Referrals: Miya Chou CRNP [Primary Care Provider] - Diet: Heart Healthy Fadi Attending Provider Instructions: You were admitted to [facility] due to findings of complete heart block on your cardiac event monitor. This was thought to be most likely caused by a conduction abnormality of your heart. As such, you had a pacemaker placed by Cardiology. You did not have any further episodes of heart block while admitted. Prior to discharge, your pacemaker was evaluated and found to be in appropriate working order. Please follow-up with cardiology in the outpatient setting for further care and recommendations. Fadi Insurance Policy Issue Clerk Provider Instructions: none Pending Studies at Discharge: No Stand-Alone Forms: My [facility], Smoking Cessation Medications and DC Order Prescriptions: Continued metoprolol succinate 100 mg tablet extended release 24 hr 100 mg PO BID RF: 0 multivitamin Tablet 1 tab PO DAILY RF: 0 amlodipine 10 mg Tablet 10 mg PO HS RF: 0 loratadine [Claritin] 10 mg Tablet 10 mg PO DAILY RF: 0 Discharge Orders: Discharge Order (Routine); Ordered 09/24/21 Ordered By: Sudarshan Dennison Admission Data Admit Date/Time: 09/22/21 22:20 Attending Provider: Milan Thomas Admit Provider: Cyn Balderas Primary Care Provider: Miya Chou Other Providers: Herbie James ; Sudarshan Dennison Coding Level of Care Code 51014 OBS Care - Discharge Diagnoses CHB (complete heart block) I44.2
[2021-09-24 09:41] LABS: BUN Creatinine Ratio 10.8 (10-20); Calcium 9.3 mg/dl (8.5-10.1); Creatinine Clr Calc Pharmacy 58.4 ml/min; Est GFR (African American) 62.6 ml/min; Potassium 3.7 mmol/L (3.5-5.1)
--- NOTE | 2021-09-24 09:46 | XRay Report ---
XR chest 2V PA/lateral HISTORY: Left-sided pacemaker placement. EXACT TIME ORDERED Evaluate for pneumothorax and l COMPARISON: Chest 09/14/2021. FINDINGS: No pneumothorax. No pleural effusions. Interval placement of a left-sided dual-chamber pace maker. The leads appear intact. The lungs are clear. No evidence for pulmonary edema. The heart is no rmal in size. IMPRESSION: Interval placement of a left-sided dual-chamber pacemaker which appears in good position. No pneumoth orax. ACT 112: Negative or not required by law. Electronically signed by: Noel Fuentes M.D. 09/24/2021 9:44 AM
--- NOTE | 2021-09-24 18:05 | Communication Note ---
Date of Service: September 24, 2021 Patient was discharged by cardiology prior to my being able to see him. Given that the case was really purely centering around the patient's complete heart block and pacer insertion, this was totally appropriate, appreciate cardiology assistance. Otherwise as per Dr. Dennison's discharge summary
== END 2021-09-24 10:10 | disposition home or self-care (01) | DRG 244 ==
LOC: ED 20:33 → SUATTDRO 22:20 → 2S 22:20